=== PATIENT | female | born 1945 | race Caucasian/White ===

== ENCOUNTER → 2017-08-31 10:11 | Outpatient (CLI) | payer MEDICARE, SELFPAY ==
--- NOTE | 2017-08-31 | DI.CT.S_ITS ---
PROCEDURE: CT ABDOMEN PELVIS W CON INDICATIONS: 71 year-old female with abdominal pain for several months. TECHNIQUE: After the administration of oral and intravenous contrast, 5 mm thick sections acquired from the diaphragms to the symphysis. 5 mm thick coronal and sagittal reformats were performed. For radiation dose reduction, the following was used: automated exposure control, adjustment of mA and/or kV according to patient size. COMPARISON: None. FINDINGS: Image quality: Excellent. ABDOMEN: Lung bases: Lung bases are clear. Heart size is normal. Patient is status post fundoplication surgery, with the surgical wrap herniating superior to the diaphragmatic hiatus. Solid organs: Liver is normal in size and enhancement. Gallbladder is surgically absent, with result in localized prominence of the intra-and extrahepatic biliary ducts. Pancreas enhances normally. Spleen is normal in size and enhancement. No adrenal nodules. Kidneys are normal in size and enhancement, without hydronephrosis. 1.9 cm right renal parapelvic simple cyst is incidentally noted. Peritoneum and bowel: Stomach, small bowel, and colon loops are normal in caliber and wall thickness. There is pancolonic diverticulosis. The appendix is unable to be visualized. No free fluid or air. Nodes and vessels: No retroperitoneal or mesenteric adenopathy. Aorta and inferior vena cava are normal in caliber, with moderate aortoiliac atherosclerosis. Miscellaneous: No ventral hernias. PELVIS: Genitourinary: Bladder wall thickness is normal. Miscellaneous: No inguinal hernias or adenopathy. Bones: No suspicious bony lesions. No vertebral body compression fractures. IMPRESSION: 1. Coffey colonic diverticulosis, without acute diverticulitis. 2. Moderate aortoiliac atherosclerosis. No hemodynamically significant stenotic calcifications of the celiac or mesenteric arteries. 3. Incidental 1.9 cm right renal parapelvic simple cyst. 4. Status post remote fundoplication surgery for gastroesophageal reflux. The fundoplication wrap is herniated superior to the diaphragmatic hiatus. Dictated by: Cj Andrade M.D. on 08/31/2017 at 12:32 Approved by: Cj Andrade M.D. on 08/31/2017 at 12:40
== END ==
PROVIDERS: PCP Internal Medicine; Visit Provider Internal Medicine
DX: K57.90 Diverticulosis of intestine, part unspecified, without perforation or abscess without bleeding (principal); I70.0 Atherosclerosis of aorta; N28.1 Cyst of kidney, acquired
CPT/HCPCS: 74177; Q9967

== ENCOUNTER → 2018-04-16 11:08 | Outpatient (CLI) | payer MEDICARE, SELFPAY ==
--- NOTE | 2018-04-16 | DI.MG.S_ITS ---
BILATERAL DIGITAL SCREENING MAMMOGRAM 3D/2D WITH CAD: 04/16/2018 CLINICAL: Routine screening. Family history of breast cancer. Comparison is made to exams dated: 03/23/2017 mammogram, 03/14/2016 mammogram, and 03/11/2015 mammogram - [facility]. The tissue of both breasts is predominantly fatty. Current study was also evaluated with a Computer Aided Detection (CAD) system. There are benign calcifications in both breasts. No significant masses, calcifications, or other findings are seen in either breast. There has been no significant interval change. IMPRESSION: There is no mammographic evidence of malignancy. A 1 year screening mammogram is recommended. This exam was interpreted at Station ID: [id number]. NOTE: For mammograms, a report in lay terms will be sent to the patient. Approximately 15% of breast malignancies will not be visualized mammographically. In the management of a palpable breast mass, a negative mammogram must not discourage biopsy of a clinically suspicious lesion. Electronically Signed By: Myrna becker/valentin:04/16/2018 11:56:03 letter sent: Normal Exam ACR BI-RADS Category 2: Benign Finding(s) 3342F
== END ==
PROVIDERS: PCP Internal Medicine; Visit Provider Internal Medicine
DX: Z12.31 Encounter for screening mammogram for malignant neoplasm of breast (principal); Z80.3 Family history of malignant neoplasm of breast
CPT/HCPCS: 77063; 77067

== ENCOUNTER → 2018-08-09 07:47 | Outpatient (CLI) | payer MEDICARE, SELFPAY ==
[2018-08-09 09:15] LABS: Alanine Aminotransferase 27 IU/L (9-52); Aspartate Aminotransferase 33 IU/L (14-36); BUN Creatinine Ratio 15.6 (6-22); Blood Urea Nitrogen 14 mg/dL (7-17); Calcium 10.4 mg/dL (8.4-10.2); Carbon Dioxide 22 mmol/L (22-32); Chloride 103 mmol/L (98-107); Cholesterol 193 mg/dL (140-199); Estimated Glomerular Filt Rate > 60.0 mL/min (>60); Glucose 93 mg/dL (80-110); HEMOLYSIS < 15 (0-50); Potassium 4.8 mmol/L (3.4-5.1); Sodium 139 mmol/L (137-145); Triglycerides 163 mg/dL (35-150)
[2018-08-09 09:17] LABS: Hemoglobin A1C% w Est Avg Glu 5.1 % (4.0-6.0)
[2018-08-09 09:26] LABS: HDL Cholesterol 110 mg/dL (40-60); LDL Cholesterol Calculated 50 mg/dL (<100)
[2018-08-13 16:09] LABS: Parathyroid Hormone Int 12 pg/mL (14-64)
== END ==
PROVIDERS: PCP Internal Medicine; Visit Provider Internal Medicine
DX: I10 Essential (primary) hypertension (principal); E78.2 Mixed hyperlipidemia; E11.9 Type 2 diabetes mellitus without complications; E83.52 Hypercalcemia
CPT/HCPCS: 36415; 80048; 80061; 83036; 83970; 84450; 84460

== ENCOUNTER → 2018-08-20 09:01 | Outpatient (CLI) | payer MEDICARE, SELFPAY ==
--- NOTE | 2018-08-20 | DI.US.S_ITS ---
PROCEDURE: US ABD AORTA ANEURYSM SCREEN INDICATIONS: Encounter for screening for cardiovascular disorders TECHNIQUE: Real time scanning was performed of the aorta and iliac arteries, with image documentation. COMPARISON: [facility], CT, CT ABDOMEN PELVIS W CON, 08/31/2017, 10:59. FINDINGS: Aorta: Imaged proximal abdominal aorta measures 2.2 x 2.1 cm in transaxial diameter. Imaged mid abdominal aorta measures 1.8 x 1.5 cm in transaxial diameter. Imaged distal abdominal aorta measures 1.9 x 1.5 cm in transaxial diameter. There is diffuse calcified plaque along the abdominal aorta. Iliac arteries: Imaged proximal right common iliac artery measures 1.2 x 1.0 cm in transaxial diameter. Imaged proximal left common iliac artery measures 1.0 x 0.8 cm in transaxial diameter. There is calcified plaque along the image common iliac arteries. IMPRESSION: 1. No ultrasound evidence of abdominal aortic aneurysm. No ultrasound evidence of aneurysm of the imaged proximal common iliac arteries. 2. Diffuse calcified plaque of the abdominal aorta and imaged proximal common iliac arteries. Dictated by: Kehinde Page M.D. on 08/20/2018 at 9:31 Approved by: Kehinde Page M.D. on 08/20/2018 at 9:45
== END ==
PROVIDERS: PCP Internal Medicine; Visit Provider Internal Medicine
DX: Z13.6 Encounter for screening for cardiovascular disorders (principal); I70.0 Atherosclerosis of aorta; Z13.820 Encounter for screening for osteoporosis; M85.852 Other specified disorders of bone density and structure, left thigh; Z78.0 Asymptomatic menopausal state; E11.9 Type 2 diabetes mellitus without complications; Z87.891 Personal history of nicotine dependence
CPT/HCPCS: 76706; 77080

== ENCOUNTER → 2018-12-20 14:19 | Outpatient (CLI) | payer MEDICARE, SELFPAY ==
--- NOTE | 2018-12-20 | DI.RAD.S_ITS ---
PROCEDURE: XR CHEST 2V INDICATIONS: COUGH TECHNIQUE: 2 views of the chest were acquired. COMPARISON: None. FINDINGS: Surgical changes and devices: Right upper quadrant surgical clips Lungs and pleura: Lungs are clear. No pleural effusions or pneumothorax. Mediastinum: Mediastinal contours are normal. Heart size is normal. Bones and chest wall: No suspicious bony abnormalities. Soft tissues appear unremarkable. IMPRESSION: No acute disease. Dictated by: Elmer Navarro M.D. on 12/20/2018 at 15:10 Approved by: Elmer Navarro M.D. on 12/20/2018 at 15:10
== END ==
PROVIDERS: PCP Internal Medicine; Visit Provider Internal Medicine
DX: R05 Cough (principal)
CPT/HCPCS: 71046

== ENCOUNTER → 2019-04-19 12:18 | Outpatient (CLI) | payer MEDICARE, SELFPAY ==
--- NOTE | 2019-04-19 | DI.MG.S_ITS ---
BILATERAL DIGITAL SCREENING MAMMOGRAM 3D/2D WITH CAD: 04/19/2019 CLINICAL: Routine screening. Family history of breast cancer. Comparison is made to exams dated: 04/16/2018 mammogram, 03/23/2017 mammogram, and 03/14/2016 mammogram - [facility]. There are scattered fibroglandular elements in both breasts. Current study was also evaluated with a Computer Aided Detection (CAD) system. There are benign calcifications in both breasts. No significant masses, calcifications, or other findings are seen in either breast. There has been no significant interval change. IMPRESSION: There is no mammographic evidence of malignancy. A 1 year screening mammogram is recommended. This exam was interpreted at Station ID: [id number]. NOTE: For mammograms, a report in lay terms will be sent to the patient. Approximately 15% of breast malignancies will not be visualized mammographically. In the management of a palpable breast mass, a negative mammogram must not discourage biopsy of a clinically suspicious lesion. Electronically Signed By: Tremayne ashley/valentin:04/21/2019 08:46:25 letter sent: Normal Exam ACR BI-RADS Category 2: Benign Finding(s) 3342F
== END ==
PROVIDERS: PCP Internal Medicine; Visit Provider Internal Medicine
DX: Z12.31 Encounter for screening mammogram for malignant neoplasm of breast (principal); Z80.3 Family history of malignant neoplasm of breast
CPT/HCPCS: 77063; 77067

== ENCOUNTER → 2019-04-24 13:43 | Outpatient (CLI) | payer MEDICARE, SELFPAY ==
--- NOTE | 2019-04-24 | DI.RAD.S_ITS ---
PROCEDURE: XR ABDOMEN MIN 2V INDICATIONS: Constipation TECHNIQUE: 2 views of the abdomen were acquired. COMPARISON: None. FINDINGS: Surgical changes and devices: Left epigastric and right quadrant surgical clips. Bowel: No pneumoperitoneum. The bowel gas pattern is normal. Soft tissues: No masses; visualized solid organ contours appear normal in size. No suspicious abdominal calcifications. Bones: No suspicious bony abnormalities. IMPRESSION: Normal bowel gas pattern. Dictated by: Gurdeep Bonilla [facility] Interpreted: Karolyn Hoff MD on 04/24/2019 at 15:16 Approved by: Karolyn Hoff M.D. on 04/24/2019 at 18:28
== END ==
PROVIDERS: PCP Internal Medicine; Visit Provider Physician Assistant
DX: K59.00 Constipation, unspecified (principal)
CPT/HCPCS: 74019

== ENCOUNTER → 2019-12-03 08:07 | Outpatient (CLI) | payer MEDICARE, SELFPAY ==
[2019-12-03 09:26] LABS: Creatinine Urine Random 67.5 mg/dL
[2019-12-03 09:28] LABS: Hemoglobin A1C% w Est Avg Glu 5.2 % (4.0-6.0)
[2019-12-03 09:29] LABS: Microalbumi Creatinin Ratio Ur 47.4 ug/mg CR (<30); Microalbumin Urine Random 3.2 mg/dL (0-1.6)
[2019-12-03 09:47] LABS: Alanine Aminotransferase 16 IU/L (<35); Albumin 4.6 g/dL (3.5-5.0); Alkaline Phosphatase 80 U/L (38-126); Aspartate Aminotransferase 28 IU/L (14-36); Bilirubin Total 0.7 mg/dL (0.2-1.3); Blood Urea Nitrogen 26 mg/dL (7-17); Calcium 11.2 mg/dL (8.4-10.2); Carbon Dioxide 22 mmol/L (22-32); Chloride 104 mmol/L (98-107); Cholesterol 171 mg/dL (140-199); Estimated Glomerular Filt Rate 30.8 mL/min (>60); Globulin 2.3 g/dL (1.7-4.1); Glucose 97 mg/dL (80-110); HEMOLYSIS < 15 (0-50); Potassium 4.7 mmol/L (3.4-5.1); Sodium 136 mmol/L (137-145); Total Protein 6.9 g/dL (6.3-8.2); Triglycerides 147 mg/dL (35-150)
[2019-12-03 09:54] LABS: HDL Cholesterol 109 mg/dL (40-60); LDL Cholesterol Calculated 33 mg/dL (<100)
== END ==
PROVIDERS: PCP Internal Medicine; Referring Provider Internal Medicine; Visit Provider Internal Medicine
DX: I10 Essential (primary) hypertension (principal); E78.2 Mixed hyperlipidemia; E11.9 Type 2 diabetes mellitus without complications
CPT/HCPCS: 36415; 80053; 80061; 82043; 82570; 83036

== ENCOUNTER → 2020-01-14 12:36 | Outpatient (CLI) | payer MEDICARE, SELFPAY ==
[2020-01-15 13:17] LABS: Ionized Calcium 5.4 mg/dL (4.5-5.6)
[2020-01-15 17:08] LABS: Calcium 10.5 mg/dL (8.7-10.3); Parathyroid Hormone, Intact 36 pg/mL (15-65)
== END ==
PROVIDERS: PCP Internal Medicine; Referring Provider Internal Medicine; Visit Provider Internal Medicine
DX: M85.851 Other specified disorders of bone density and structure, right thigh (principal); Z78.0 Asymptomatic menopausal state; E11.9 Type 2 diabetes mellitus without complications; E83.52 Hypercalcemia; Z87.891 Personal history of nicotine dependence
CPT/HCPCS: 36415; 77080; 82310; 82330; 83970

== ENCOUNTER → 2020-01-20 13:40 | Oncology outpatient (ONC) | payer MEDICARE, SELFPAY ==
[2020-01-07 11:05] VITALS: BP 148/74; PULSE 71; RESP 18; TEMP 36.4; O2SAT 98
--- NOTE | 2020-01-07 12:04 | P.CONONC_ITS ---
History of Present Illness - Data of Consult Consult date: 01/07/20 Requesting Physician: Eryn molina MD Primary Care Provider: Eryn Molina MD - Consult Narrative Reason for consult: Hypercalcemia Narrative: Hollie Granger is a 74 year old female referred for further evaluation of hypercalcemia. Review of her old records shows that in March 11, 2003 she had a mildly elevated calcium level of 10.5. In May 2004 it was 9.7, in June 2005 it was 10.1, in June 2006 was 9.6, in September 2008 it was 9.8, and in October of 2015 it was 10.6. Of note is that she had a normal vitamin-D of 56.4 in 2009, 52 in September of 2015. It had previously been low. In September of 2015 she also had normal free light chain assay, serum protein electrophoresis and serum immunofixation. Intact PTH assay was normal at that time at 34.9 (upper limit of normal 53.5). PTH intact was also obtained in July of 2018 and was low at 12. In April 2016 her calcium was 11.1. Since then her levels have been fluctuating around the upper end of normal. On December 03, 2019 her calcium was 11.2. She is now referred for hematology oncology consultation. She denies taking any calcium supplements, antacids, or excessive dairy intake. She took vitamin-D in the past but has stopped this. She does not take any supplements. She does not tolerate cold weather well. She notes some easy bruising on her arms over the last few months. She does not have any bruising anywhere else. She denies any issues with lumps or bumps, skin rash, mouth sores, pain, bleeding, localized weakness, fever, chills, nausea, vomiting, mouth sores, trouble swallowing, anorexia, cough, shortness of breath, itching, night sweats, dizziness, or fatigue. She goes on regular walks. She has a 3-month-old cord the puppy and is out regularly with him. She does not have any trouble getting around. Her last year in she had an unintentional 15-20 lb weight loss initially. Her appetite was good. This is since leveled off. All other systems are negative. Past medical history 1. Adult onset diabetes 2. High blood pressure 3. Hyperlipidemia 4. History of osteopenia. She has not had a DEXA scan within the last 2 years to her recollection. 5. Gastroesophageal reflux disease 6. Hiatal hernia 7. History of mild psoriasis for which he is followed by Dermatology 8. Unremarkable imaging in 2019 and included a chest x-ray in November of 2018, mammography in March 2019, and abdominal x-ray in March of 2019. 9. She denies rheumatic fever, tuberculosis, heart attacks, strokes, stomach ulcers, pneumonia or any kind of cancer 10. This is a family history of breast cancer in her mother who was diagnosed in her 70s and a maternal cousin who was diagnosed with breast cancer in her 60s. She is unaware of any other family history of malignancy, a family history of blood disorders, or family history of an elevated calcium. 11. Previous surgeries included tonsillectomy, partial thyroidectomy, hysterectomy, back surgery, rotator saw cuff surgery, colonoscopy in 2018, and a Cat fundoplasty. 12. 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 She is a . She is accompanied in the office today by her daughter. She is a former 15 pack year smoker who quit about 30 years ago. She has a glass of wine with dinner. She is active in gets out of the house on a regular basis. She tries to eat a healthy diet. 13. She does not tolerate amoxicillin, esomeprazole hydrochlorothiazide 14. Current medications include atorvastatin 20 mg daily, benazepril 20 mg twice a day, Lasix 20 mg daily, metformin 500 mg twice a day and metoprolol 25 mg daily. CC: Aron Delcid MD Home Medications and Allergies Home Medications Medication Instructions Recorded Confirmed Type atorvastatin 20 mg PO DAILY 01/07/20 01/07/20 History benazepril 20 mg BID 01/07/20 01/07/20 History furosemide 20 mg PO DAILY 01/07/20 01/07/20 History metformin 500 mg BID 01/07/20 01/07/20 History metoprolol succinate 25 mg PO DAILY 01/07/20 01/07/20 History Allergies Allergy/AdvReac Type Severity Reaction Status Date / Time Amoxicillin Allergy Unknown Uncoded 08/08/17 11:50 Esomeprazole Allergy Unknown Uncoded 08/08/17 11:50 Hydrochlorothiazide Allergy Unknown Uncoded 08/08/17 11:50 Exam Vital signs: Vital Signs Temp Pulse Resp BP Pulse Ox 01/07/20 11:05 97.6 F 71 18 148/74 H 98 Intake and Output 01/06/20 01/07/20 01/07/20 23:59 07:59 15:59 Other: Weight 54 kg Patient Weight 01/07/20 23:59 Weight 54 kg Narrative: She was awake, alert and oriented x3. She was in no acute distress. There was no palpable lymph node enlargement in the cervical, supraclavicular, epitrochlear, axillary, inguinal or femoral regions. Lungs were clear without wheezes or rales. Breath sounds were equal throughout both lung crowell and there was no evidence of pleural effusion on exam. Heart showed a regular rate and rhythm without murmur, gallop or rub. The PMI was normally placed. There was no jugular venous distention. Abdomen was soft and nontender without organomegaly or masses. There were no hernias. The spleen was not palpable in the right lateral decubitus position. Bowel tones were normal. There was no evidence of phlebitis in the lower extremities. There were no suspicious skin lesions and no inflamed joints. Assessment and Plan (1) Hypercalcemia Status: Acute Ms. Granger has a history of mild hypercalcemia that dates back a number of years. It does not have a pattern of steady progression and has remained in a mild range. She does not have any clinical findings that would suggest an underlying malignancy and she is up-to-date with her age-appropriate cancer screening. We discussed the fact that although hypercalcemia can be seen as a paraneoplastic phenomenon, when it occurs in the setting of malignancy, it typically is associated with a very poor prognosis, aggressive cancer that is usually rapidly progressive, and without treatment of the underlying malignancy will typically worsen over time (usually months) often getting to very high levels. She has no findings that would suggest an underlying cancer and I do not think she has hypercalcemia of malignancy. Previous workup looking for a monoclonal paraprotein, vitamin-D intoxication, and elevated intact PTH levels further plans will be made at that time. Has been unrevealing. She is not on any obvious supplements or medications that he could be contributing to this. She does not have any symptoms to suggest sarcoidosis and a chest x-ray a year ago was negative. She also does not have a family history to suggest hereditary process. Thyroid function tests have been normal in the past and she does not have findings that would suggest adrenal insufficiency. Today we will get an ionized calcium level. I explained that calcium circulate in both free and bound forms and the ionized calcium would be an important test to clarify whether she has true hypercalcemia. We also discussed the fact that sustained hypercalcemia, even if mild, can be associated with a loss of bone density. We will check a bone density test, as well. She will return after these studies have been completed. Further plans will be made at that time. Impression: 1. Mild and fluctuating hypercalcemia dating back to 2002, consistently present since 2016 2. Previous workup with monoclonal paraprotein studies, intact PTH assay, thyroid function tests was negative 3. No evidence of malignancy on her clinical assessment today and no findings to suggest hypercalcemia of malignancy 4. Patient is up-to-date with her age-appropriate cancer screening Recommendations: 1. Ionized calcium 2. Bone density test 3. Return afterwards for review of results I personally spent 46 minutes in today's [id number] visit with greater than 50% of the time spent in counseling regarding the issues outlined above. I would like to thank Dr. Eryn Molina for referring this very pleasant interesting patient
[2020-01-20 13:34] VITALS: BP 137/74; PULSE 73; RESP 18; TEMP 36.5; O2SAT 98
--- NOTE | 2020-01-20 13:57 | ONC.PN ---
PN -Subjective Interval history: Hollie Granger is a 74 year old female referred for further evaluation of hypercalcemia. Review of her old records shows that in March 11, 2003 she had a mildly elevated calcium level of 10.5. In May 2004 it was 9.7, in June 2005 it was 10.1, in June 2006 was 9.6, in September 2008 it was 9.8, and in October of 2015 it was 10.6. Of note is that she had a normal vitamin-D of 56.4 in 2009, 52 in September of 2015. It had previously been low. In September of 2015 she also had normal free light chain assay, serum protein electrophoresis and serum immunofixation. Intact PTH assay was normal at that time at 34.9 (upper limit of normal 53.5). PTH intact was also obtained in July of 2018 and was low at 12. In April 2016 her calcium was 11.1. Since then her levels have been fluctuating around the upper end of normal. On December 03, 2019 her calcium was 11.2. She was referred for hematology oncology consultation, had testing done, and now comes in to review results. She denies taking any calcium supplements, antacids, or excessive dairy intake. She took vitamin-D in the past but has stopped this. She does not take any supplements. She does not tolerate cold weather well. She notes some easy bruising on her arms over the last few months. She does not have any bruising anywhere else. She denies any issues with lumps or bumps, skin rash, mouth sores, pain, bleeding, localized weakness, fever, chills, nausea, vomiting, mouth sores, trouble swallowing, anorexia, cough, shortness of breath, itching, night sweats, dizziness, or fatigue. She goes on regular walks. She has a 3-month-old cord the puppy and is out regularly with him. She does not have any trouble getting around. Her last year in she had an unintentional 15-20 lb weight loss initially. Her appetite was good. This is since leveled off. All other systems are negative. Past medical history 1. Adult onset diabetes 2. High blood pressure 3. Hyperlipidemia 4. History of osteopenia. She has not had a DEXA scan within the last 2 years to her recollection. 5. Gastroesophageal reflux disease 6. Hiatal hernia 7. History of mild psoriasis for which he is followed by Dermatology 8. Unremarkable imaging in 2019 and included a chest x-ray in November of 2018, mammography in March 2019, and abdominal x-ray in March of 2019. 9. She denies rheumatic fever, tuberculosis, heart attacks, strokes, stomach ulcers, pneumonia or any kind of cancer 10. This is a family history of breast cancer in her mother who was diagnosed in her 70s and a maternal cousin who was diagnosed with breast cancer in her 60s. She is unaware of any other family history of malignancy, a family history of blood disorders, or family history of an elevated calcium. 11. Previous surgeries included tonsillectomy, partial thyroidectomy, hysterectomy, back surgery, rotator saw cuff surgery, colonoscopy in 2018, and a Cat fundoplasty. 12. 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 She is a . She is accompanied in the office today by her daughter. She is a former 15 pack year smoker who quit about 30 years ago. She has a glass of wine with dinner. She is active in gets out of the house on a regular basis. She tries to eat a healthy diet. 13. She does not tolerate amoxicillin, esomeprazole hydrochlorothiazide 14. Current medications include atorvastatin 20 mg daily, benazepril 20 mg twice a day, Lasix 20 mg daily, metformin 500 mg twice a day and metoprolol 25 mg daily. CC: Aron Delcid MD Home Medications and Allergies Home Medications Medication Instructions Recorded Confirmed Type atorvastatin 20 mg PO DAILY 01/07/20 01/07/20 History benazepril 20 mg BID 01/07/20 01/07/20 History furosemide 20 mg PO DAILY 01/07/20 01/07/20 History metformin 500 mg BID 01/07/20 01/07/20 History metoprolol succinate 25 mg PO DAILY 01/07/20 01/07/20 History Allergies Allergy/AdvReac Type Severity Reaction Status Date / Time Amoxicillin Allergy Unknown Uncoded 08/08/17 11:50 Esomeprazole Allergy Unknown Uncoded 08/08/17 11:50 Hydrochlorothiazide Allergy Unknown Uncoded 08/08/17 11:50 Exam Vital signs: Vital Signs Temp Pulse Resp BP Pulse Ox 01/20/20 13:34 97.7 F 73 18 137/74 98 Intake and Output 01/19/20 01/20/20 01/20/20 23:59 07:59 15:59 Other: Weight 54.4 kg Patient Weight 01/20/20 23:59 Weight 54.4 kg Narrative: She was awake, alert and oriented x3. She was in no acute distress. Assessment and Plan (1) Hypercalcemia Status: Acute Ms. Granger has a history of mild hypercalcemia that dates back a number of years. It does not have a pattern of steady progression and has remained in a mild range. She does not have any clinical findings that would suggest an underlying malignancy and she is up-to-date with her age-appropriate cancer screening. We discussed the fact that although hypercalcemia can be seen as a paraneoplastic phenomenon, when it occurs in the setting of malignancy, it typically is associated with a very poor prognosis, aggressive cancer that is usually rapidly progressive, and without treatment of the underlying malignancy will typically worsen over time (usually months) often getting to very high levels. She has no findings that would suggest an underlying cancer and I do not think she has hypercalcemia of malignancy. Previous workup looking for a monoclonal paraprotein, vitamin-D intoxication, and elevated intact PTH levels has been unrevealing. She is not on any obvious supplements or medications that he could be contributing to this. She does not have any symptoms to suggest sarcoidosis and a chest x-ray a year ago was negative. She also does not have a family history to suggest hereditary process. Thyroid function tests have been normal in the past and she does not have findings that would suggest adrenal insufficiency. Ionized calcium obtained at the time of her last visit came back normal. I discussed Ms. Blanco case with her primary physician, Dr. Eryn Molina. Ms. Molina's picture is consistent with mild hypercalcemia related to her albumin which has been consistently at the upper end of normal or just above the upper end of normal. Her ionized calcium is normal and extensive assessment for potential conditions that could result in a chew hypercalcemia has been unrevealing. We reviewed the fact that the ionized calcium being normal is extremely reassuring and suggest that she does not have physiologic hypercalcemia. I would suggest that she get an annual calcium level checked. If it remains in the mildly elevated or upper limit of normal range where it has been for years, no further workup would be indicated. If she were to develop a significant increase in her calcium, such as a level that is consistently above 12, repeat assessment for potential new causes of hypercalcemia would be appropriate. Although no specific return appointment has been scheduled to this office, I would be happy to see her again at any time in the future. Impression: 1. Mild and fluctuating hypercalcemia dating back to 2002, consistently present since 2016 2. Previous workup with monoclonal paraprotein studies, intact PTH assay, thyroid function tests was negative 3. No evidence of malignancy on her clinical assessment today and no findings to suggest hypercalcemia of malignancy 4. Patient is up-to-date with her age-appropriate cancer screening 5. Ionized calcium is normal, consistent with mild hypercalcemia due to her albumin being at the upper end of normal or slightly above normal. Recommendations: 1. Check calcium annually 2. Consider repeat assessment if it should persistently go above 12 3. She will follow-up with Dr. Eryn Mloina 4. Case was discussed with Dr. Eryn Molina 5. No specific return appointment has been scheduled to this office but I would be happy to see her again at any time in the future. I personally spent 46 minutes in today's [id number] visit with greater than 50% of the time spent in counseling regarding the issues outlined above. I would like to thank Dr. Eryn Molina for referring this very pleasant interesting patient
== END ==
PROVIDERS: PCP Internal Medicine; Referring Provider Internal Medicine; Visit Provider Internal Medicine
DX: E83.52 Hypercalcemia (principal); E11.9 Type 2 diabetes mellitus without complications; I10 Essential (primary) hypertension; E78.5 Hyperlipidemia, unspecified; K21.9 Gastro-esophageal reflux disease without esophagitis; Z80.3 Family history of malignant neoplasm of breast; Z87.891 Personal history of nicotine dependence; Z79.84 Long term (current) use of oral hypoglycemic drugs
CPT/HCPCS: 99204; 99214

== ENCOUNTER 2020-04-17 02:41 | Inpatient (IN) | payer MEDICARE, SELFPAY ==
[2020-04-17] VITALS (17 sets, daily range): BP systolic 105–179; BP diastolic 49–121; PULSE 80–185; RESP 15–50; TEMP 36.7–37.4; O2SAT 94–100; BMI 24.2
--- NOTE | 2020-04-17 02:44 | DI.RAD.S_ITS ---
PROCEDURE: XR HIP W PEL IF DONE RT 2V COMPARISON: None. INDICATIONS: fall with hip pain and injury FINDINGS: There is an oblique fracture through the intertrochanteric region of the right which is distracted approximately 10 millimeters. The hip joints themselves are intact. The sacroiliac joints and symphysis pubis are unremarkable. No definite pelvic fracture. IMPRESSION: Minimally displaced right intertrochanteric hip fracture. Comment: Final report is concordant with preliminary interpretation by [facility] Dictated by: Renan Prescott M.D. on 04/17/2020 at 8:14 Approved by: Renan Prescott M.D. on 04/17/2020 at 8:15
--- NOTE | 2020-04-17 02:44 | DI.CT.S_ITS ---
PROCEDURE: CT CHEST ABD PEL W CON COMPARISON: None. INDICATIONS: found down, presumed trauma, obvious right hip injury FINDINGS: FINDINGS: Image quality: Excellent. CHEST: Lungs and pleura: No acute air space opacities. No pleural effusions or pneumothorax. Central and peripheral airways are patent and normal in caliber. Mediastinum: Heart size is normal. No pericardial effusion. No mediastinal adenopathy by size criteria. Thoracic aorta and central pulmonary arteries are normal in size. Esophagus is normal in caliber. No hiatal hernia. Bones and chest wall: No suspicious bony lesions. No vertebral body compression fractures. No axillary or supraclavicular adenopathy by size criteria. Thyroid gland is normal . ABDOMEN: Solid organs: Liver: The liver has no mass. There is central biliary prominence with the common bile duct measuring 19 millimeters likely related to prior cholecystectomy. The portal vein and hepatic veins are patent. Biliary: Status post cholecystectomy. Pancreas: The pancreas has no mass or ductal dilatation. There is no surrounding inflammation. Spleen: Normal size. There are no masses. Adrenals: No hypertrophy or nodules. Kidneys: No obstructive calculus or hydronephrosis. No solid mass. No cystic mass. Bowel: There is a small hiatal hernia. The distal esophagus and stomach are otherwise normal. The small bowel has a normal caliber and appearance. The terminal ileum is normal. The large bowel has diverticulosis with no evidence of diverticulitis. The appendix is not definitively visualized; however there are no secondary CT findings to suggest acute appendicitis.. No free fluid or air. Nodes and vessels: No retroperitoneal or mesenteric adenopathy by size criteria. The aorta has atherosclerosis with no aneurysmal dilatation. Abdominal wall: No abdominal wall mass or hernia. PELVIS: Genitourinary: The bladder has no wall thickening or mass. No bladder calcifications. Miscellaneous: No inguinal hernias or adenopathy. Bones and abdominal wall: There is a comminuted intertrochanteric fracture on the right. There is stranding of the soft tissue superficial to the fracture site. The iliacus muscle is also thickened and ill-defined suggesting possible intramuscular injury/hematoma. Similar findings are noted in the medius and minimus muscles on the right. A few benign-appearing calcifications are noted in the mesentery to the right of midline. No vertebral body compression fractures. IMPRESSION: Comminuted intertrochanteric fracture on the right with adjacent soft tissue swelling and evidence of muscular injury/hematoma involving the iliacus muscle and gluteus muscle as well as proximal thigh muscles. Comment: Final report is concordant with preliminary interpretation by [facility] Dictated by: Renan Prescott M.D. on 04/17/2020 at 8:19 Approved by: Renan Prescott M.D. on 04/17/2020 at 8:25
--- NOTE | 2020-04-17 02:45 | DI.CT.S_ITS ---
PROCEDURE: CT CERVICAL SPINE WO CON INDICATIONS: trauma, found down, unknown circumstances TECHNIQUE: Noncontrast 3 mm thick sections acquired from the skull base to the T4 level. Sagittal and coronal reformats were then constructed. For radiation dose reduction, the following was used: automated exposure control, adjustment of mA and/or kV according to patient size. COMPARISON: None. FINDINGS: Alignment is maintained. There is no evidence of traumatic fracture or spondylolisthesis. Lateral masses are intact. Dens appears normal. There are multilevel degenerative changes with disc disease and disc osteophytes. There is degenerative disc disease at C4-5 and C5-6. The visualized soft tissues demonstrate no soft tissue hematoma, pathologic adenopathy or mass lesion. The lung apices demonstrate no focal contusion or pneumothorax. Limited evaluation of the brain parenchyma is normal. IMPRESSION: 1. No acute bony abnormality. 2. Mild degenerative changes of C4-5 and C5-6. Dictated by: Renan Prescott M.D. on 04/17/2020 at 8:16 Approved by: Renan Prescott M.D. on 04/17/2020 at 8:19
--- NOTE | 2020-04-17 02:45 | DI.CT.S_ITS ---
PROCEDURE: CT HEAD/BRAIN WO CON COMPARISON: None. INDICATIONS: trauma, found down, unknown circumstances FINDINGS: Image quality: Excellent. CSF spaces: Basal cisterns are patent. No extra-axial fluid collections. Ventricles are normal in size and shape. Brain: No midline shift. No intracranial masses or hemorrhage. Brewer-white matter interface is normal. Skull and face: Calvarium and visualized facial bones are intact, without suspicious lesions. The orbits and retrobulbar are soft tissues are normal. The soft tissues are normal. Sinuses: Visualized sinuses and mastoids are clear. IMPRESSION: No acute intracranial abnormality Comment: Final report is concordant with preliminary interpretation by [facility] Dictated by: Renan Prescott M.D. on 04/17/2020 at 8:15 Approved by: Renan Prescott M.D. on 04/17/2020 at 8:16
--- NOTE | 2020-04-17 02:53 | ED_ITS ---
HPI - Extremity Injury (Lower) General Chief Complaint: Extremity Injury, Lower Stated Complaint: GLF, right hip pain Time Seen by Provider: 04/17/20 02:43 Source: patient and EMS Mode of arrival: EMS Limitations: no limitations History of Present Illness HPI Narrative: 74F nonsmoker presents with the chief complaint of severe R hip pain since a fall Thrusday night. She has been crawling on the ground at home alone ever since. She made it to the phone to contact EMS. She doesn't know exactly how she fell, but has largely been on the ground since. She doesn't have any head, neck, or back pain. She's had no CP, SOB, N/V/D or abdominal pain. She feels weak, and worn out. She is awake, alert, and oriented. EMS gave her Fentanyl and some Ketamine en route. She has significant pain in her hip with movement, which improves with rest. She denies numbness, tingling, or weakness. Related Data Home Medications Medication Instructions Recorded Confirmed atorvastatin 20 mg PO DAILY 01/07/20 04/17/20 benazepril 20 mg BID 01/07/20 04/17/20 furosemide 20 mg PO DAILY 01/07/20 04/17/20 metformin 500 mg BID 01/07/20 04/17/20 metoprolol succinate 25 mg PO DAILY 01/07/20 04/17/20 Allergies Allergy/AdvReac Type Severity Reaction Status Date / Time amoxicillin Allergy Unknown Verified 04/17/20 08:44 esomeprazole Allergy Unknown Verified 04/17/20 08:44 hydrochlorothiazide Allergy Unknown Verified 04/17/20 08:44 Review of Systems Constitutional Constitutional: Denies chills, Reports fatigue, Denies fever(s), Denies frequent falls, Denies lethargy and Reports weakness Eyes Eyes: Denies change in vision, Denies eye discharge, Denies irritation and Denies loss of vision ENT Ears, Nose, Mouth, and Throat: Denies change in voice, Denies dizziness, Denies neck pain, Denies sore throat and Denies throat swelling Cardiovascular Cardiovascular: Denies chest pain, Denies irregular heart rhythm, Denies lightheadedness, Denies palpitations, Denies dyspnea, Denies dyspnea on exertion and Denies orthopnea Respiratory Respiratory: Denies cough, Denies dyspnea, Denies dyspnea on exertion and Denies wheezing Gastrointestinal Gastrointestinal: Denies abdominal pain, Denies change in bowel habits, Denies diarrhea, Denies nausea and Denies vomiting Musculoskeletal Musculoskeletal: Reports deformity, Reports arthralgias, Reports joint swelling, Reports limited range of motion, Denies neck pain and Denies numbness Integumentary/Breasts Skin/Breast: Denies pruritus, Denies erythema, Denies rash and Denies wounds Neurologic Neurologic: Denies behavioral changes, Denies confusion, Denies dizziness, Denies frequent falls, Denies loss of vision, Denies numbness and Reports wea kness Psychiatric Psychiatric: Denies anxiety, Denies behavioral changes, Denies confusion, Denies depression, Denies homicidal ideation and Denies suicidal ideation Endocrine Endocrine: Reports fatigue, Denies flushing and Denies palpitations Hematologic/Lymphatic Hematologic/Lymphatic: Reports easy bruising Allergic/Immunologic Allergic/Immunologic: Denies urticaria, Denies throat swelling and Denies wheezing Patient History Medical History Benign essential HTN GERD (gastroesophageal reflux disease) Hiatal hernia Hyperlipidemia associated with type 2 diabetes mellitus Osteopenia Psoriasis Family History (Updated 04/17/20 @ 06:00 by Kathleen Bustamante [facility]) Mother Breast cancer Family/Other Breast cancer Social History household members: none Smoking Status: Never smoker Smoking Status: Never smoker alcohol intake frequency: a few times a month Alcohol type: wine Substance Use Type: does not use Exam Narrative Exam Narrative: GENERAL: [74] year old patient appears stated age. Well- nourished, well-developed patient, in obvious distress. GCS 15 HEAD: Atraumatic. Normocephalic. EYES: Pupils equal round and reactive. Extraocular motions intact. No scleral icterus. No injection or drainage. ENT: Dry mucous membranes. Nose without bleeding, purulent drainage. Throat without erythema, tonsillar hypertrophy or exudate. Airway patent. NECK: Trachea midline. Non tender CARDIOVASCULAR: Regular rate and rhythm without murmurs, gallops, or rubs. RESPIRATORY: Clear to auscultation. Breath sounds equal bilaterally. No wheezes, rales, or rhonchi. GASTROINTESTINAL: Abdomen soft, non-tender, nondistended. EXTREMITIES: Pain, ecchymosis R hip, shortening and external rotation. Closed, isolated, and NV intact. BACK: Nontender without deformity or crepitance. No flank tenderness. NEURO: AOx3. SKIN: Abnormal bruising on R hip and both elbows. Otherwise, no rash or erythema of visible areas Initial Vital Signs Initial Vital Signs: Vital Signs Temperature 99.1 F 04/17/20 02:48 Pulse Rate 90 04/17/20 02:48 Respiratory Rate 20 04/17/20 02:48 Blood Pressure 172/90 H 04/17/20 02:48 Pulse Oximetry 98 04/17/20 02:48 Course Orders Ordered: Acetaminophen (Acetaminophen 325 Mg Tablet) 650 mg PO Q6HR PRN PRN Reason: Fever/Mild Pain (1-3) Hydrocodone Bitart/Acetaminophen (Hydrocodone/Acet 5/325 Tablet) 2 tab PO Q4HR PRN PRN Reason: Pain, Severe (7-10) Last Admin: 04/17/20 21:22 Dose: 2 tab Documented by: Admin: 04/17/20 16:48 Dose: 2 tab Documented by: Admin: 04/17/20 11:14 Dose: 2 tab Documented by: Admin: 04/17/20 05:33 Dose: 2 tab Documented by: TATY Atorvastatin Calcium (Atorvastatin 20 Mg Tablet) 20 mg PO BEDTIME [facility] Last Admin: 04/17/20 20:38 Dose: 20 mg Documented by: NINFA Benazepril HCl (Benazepril 20 Mg Tablet) 20 mg PO BID [facility] Last Admin: 04/17/20 20:34 Dose: Not Given Documented by: Admin: 04/17/20 09:03 Dose: Not Given Documented by: CHELSEY Dextrose (Dextrose 50 % In Water 25 Gm/50 Ml Syringe) 25 gm IV PRN PRN PRN Reason: Hypoglycemia Docusate Sodium (Docusate 100 Mg Capsule) 100 mg PO BID [facility] Last Admin: 04/17/20 20:38 Dose: 100 mg Documented by: Admin: 04/17/20 09:11 Dose: 100 mg Documented by: CHELSEY Enoxaparin Sodium (Enoxaparin 30 Mg/0.3 Ml Syringe) 30 mg SUBCUT DAILY [facility] Last Admin: 04/17/20 09:03 Dose: Not Given Documented by: CHELSEY Sodium Chloride (Normal Saline 0.9%) 1,000 mls @ 150 mls/hr IV CONT [facility] Last Admin: 04/17/20 19:01 Dose: 150 mls/hr Documented by: Infusion: 04/17/20 19:01 Dose: 100 mls/hr Documented by: Admin: 04/17/20 09:11 Dose: 100 mls/hr Documented by: Admin: 04/17/20 05:38 Dose: Not Given Documented by: TATY Metoprolol Succinate (Metoprolol Er 25 Mg Tablet) 25 mg PO DAILY [facility] Last Admin: 04/17/20 09:11 Dose: 25 mg Documented by: CHELSEY Naloxone HCl (Naloxone 0.4 Mg/Ml Vial) 0.2 mg IV Q2MIN PRN PRN Reason: Opiate Reversal Ondansetron HCl (Ondansetron 4 Mg Odt) 4 mg PO Q8HR PRN PRN Reason: Nausea And Vomiting Sennosides (Sennosides 8.6 Mg Tablet) 17.2 mg PO BEDTIME [facility] Last Admin: 04/17/20 20:39 Dose: 17.2 mg Documented by: NINFA Discontinued Medications Furosemide (Furosemide 20 Mg Tablet) 20 mg PO DAILY [facility] Last Admin: 04/17/20 09:03 Dose: Not Given Documented by: CHELSEY Hydromorphone HCl (Hydromorphone 0.5 Mg Inj) 0.5 mg IV NOW ONE Stop: 04/17/20 03:45 Last Admin: 04/17/20 03:59 Dose: 0.5 mg Documented by: RADHA Sodium Chloride (Normal Saline 0.9%) 1,000 mls @ 1,000 mls/hr IV BOLUS ONE Stop: 04/17/20 04:45 Last Infusion: 04/17/20 06:13 Dose: 0 mls/hr Documented by: Admin: 04/17/20 03:59 Dose: 1,000 mls/hr Documented by: RADHA Insulin Glargine (Insulin Glargine 100 Unit/Ml 3ml Pen) 1 unit SUBCUT 2100 [facility] Ketorolac Tromethamine (Ketorolac 10 Mg Tablet) 10 mg PO Q6HR PRN PRN Reason: Pain, Moderate (4-6) Stop: 04/22/20 05:11 Consultations Consultation #1: initial call to ortho (Inder) upon completion of portable hip/pelvis. Recommends to admit to medicine. Consultation #2: call to hospitalist. Vital Signs Vital signs: Vital Signs - 8 hr 04/17/20 02:48 Temperature 99.1 F Pulse Rate 90 Respiratory Rate 20 Blood Pressure 172/90 H Pulse Oximetry 98 MDM - Extremity Injury (Lower) Lab Data Result diagrams: 04/17/20 12:50 04/17/20 12:30 Labs: Lab Results 04/17/20 04/17/20 04/17/20 Range/Units 02:55 03:15 03:15 WBC 10.4 (4.5-11.0) X10^3/uL RBC 2.94 L (4.0-5.2) X10^6/uL Hgb 9.7 L (12.0-16.0) g/dL Hct 29.1 L (36-46) % MCV 99.0 (80-100) fL MCH 33.0 (26-34) PG MCHC 33.3 (30-36) % RDW 14.8 (11.6-14.8) % Plt Count 200 (150-400) X10^3/uL Neut % (Auto) 86.2 H (50-75) % Lymph % (Auto) 5.2 L (25-40) % Rabun % (Auto) 8.5 (3-14) % Eos % (Auto) 0.0 L (2-4) % Baso % (Auto) 0.1 (0-2) % Neut # (Auto) 8900 H (6138-3955) /uL Lymph # (Auto) 500 L (5904-4137) /uL Rabun # (Auto) 900 (0-900) /uL Eos # (Auto) 0 (0-450) /uL Baso # (Auto) 0 (0-100) /uL PT (10.1-12.7) SECONDS INR (0.9-1.3) Sodium 135 L (137-145) mmol/L Potassium 4.5 (3.4-5.1) mmol/L Chloride 103 (98-107) mmol/L Carbon Dioxide 26 (22-32) mmol/L BUN 33 H (7-17) mg/dL Creatinine 1.46 H (0.52-1.04) mg/dL Estimated GFR 34.8 L (>60) mL/min BUN/Creatinine Ratio 22.6 H (6-22) Glucose 170 H (80-110) mg/dL Lactate (0.7-2.1) mmol/L Calcium 9.6 (8.4-10.2) mg/dL Magnesium 1.8 (1.6-2.3) mg/dL Total Bilirubin 1.1 (0.2-1.3) mg/dL AST 115 H (14-36) IU/L ALT 41 H (<35) IU/L Alkaline Phosphatase 74 (38-126) U/L Total Creatine Kinase (30-135) U/L CK-MB (CK-2) (<2.37) ng/mL CK-MB (CK-2) Rel Index (1.5-5.0) % Troponin I (0.01-0.034) ng/mL NT-Pro-B Natriuret Pep (<450) pg/mL Total Protein 6.6 (6.3-8.2) g/dL Albumin 4.0 (3.5-5.0) g/dL Globulin 2.6 (1.7-4.1) g/dL Albumin/Globulin Ratio 1.5 (1.0-2.8) Urine Color Urine Appearance Urine pH (4.5-8.0) Ur Specific Ethel (1.000-1.035) Urine Protein (Negative) Urine Glucose (UA) (Negative) g/dL Urine Ketones (NEGATIVE) Urine Occult Blood (Negative) Urine Nitrate (Negative) Urine Bilirubin (NEGATIVE) Urine Urobilinogen (0.2) E.U./dL Ur Leukocyte Esterase (NEGATIVE) Urine RBC (0-5/HPF) Urine WBC (0-5/HPF) Urine Bacteria (None) Ur Culture Indicated? COVID-19 PCR Negative (Negative) 04/17/20 04/17/20 04/17/20 Range/Units 03:15 03:15 03:15 WBC (4.5-11.0) X10^3/uL RBC (4.0-5.2) X10^6/uL Hgb (12.0-16.0) g/dL Hct (36-46) % MCV (80-100) fL MCH (26-34) PG MCHC (30-36) % RDW (11.6-14.8) % Plt Count (150-400) X10^3/uL Neut % (Auto) (50-75) % Lymph % (Auto) (25-40) % Rabun % (Auto) (3-14) % Eos % (Auto) (2-4) % Baso % (Auto) (0-2) % Neut # (Auto) (9112-9460) /uL Lymph # (Auto) (6803-7097) /uL Rabun # (Auto) (0-900) /uL Eos # (Auto) (0-450) /uL Baso # (Auto) (0-100) /uL PT 10.8 (10.1-12.7) SECONDS INR 0.9 (0.9-1.3) Sodium (137-145) mmol/L Potassium (3.4-5.1) mmol/L Chloride (98-107) mmol/L Carbon Dioxide (22-32) mmol/L BUN (7-17) mg/dL Creatinine (0.52-1.04) mg/dL Estimated GFR (>60) mL/min BUN/Creatinine Ratio (6-22) Glucose (80-110) mg/dL Lactate 1.8 (0.7-2.1) mmol/L Calcium (8.4-10.2) mg/dL Magnesium (1.6-2.3) mg/dL Total Bilirubin (0.2-1.3) mg/dL AST (14-36) IU/L ALT (<35) IU/L Alkaline Phosphatase (38-126) U/L Total Creatine Kinase 4841 H (30-135) U/L CK-MB (CK-2) 10.50 H (<2.37) ng/mL CK-MB (CK-2) Rel Index 0.2 L (1.5-5.0) % Troponin I 0.041 H (0.01-0.034) ng/mL NT-Pro-B Natriuret Pep 2780 H (<450) pg/mL Total Protein (6.3-8.2) g/dL Albumin (3.5-5.0) g/dL Globulin (1.7-4.1) g/dL Albumin/Globulin Ratio (1.0-2.8) Urine Color Urine Appearance Urine pH (4.5-8.0) Ur Specific Ethel (1.000-1.035) Urine Protein (Negative) Urine Glucose (UA) (Negative) g/dL Urine Ketones (NEGATIVE) Urine Occult Blood (Negative) Urine Nitrate (Negative) Urine Bilirubin (NEGATIVE) Urine Urobilinogen (0.2) E.U./dL Ur Leukocyte Esterase (NEGATIVE) Urine RBC (0-5/HPF) Urine WBC (0-5/HPF) Urine Bacteria (None) Ur Culture Indicated? COVID-19 PCR (Negative) 04/17/20 Range/Units 04:33 WBC (4.5-11.0) X10^3/uL RBC (4.0-5.2) X10^6/uL Hgb (12.0-16.0) g/dL Hct (36-46) % MCV (80-100) fL MCH (26-34) PG MCHC (30-36) % RDW (11.6-14.8) % Plt Count (150-400) X10^3/uL Neut % (Auto) (50-75) % Lymph % (Auto) (25-40) % Rabun % (Auto) (3-14) % Eos % (Auto) (2-4) % Baso % (Auto) (0-2) % Neut # (Auto) (1853-8513) /uL Lymph # (Auto) (1089-4760) /uL Rabun # (Auto) (0-900) /uL Eos # (Auto) (0-450) /uL Baso # (Auto) (0-100) /uL PT (10.1-12.7) SECONDS INR (0.9-1.3) Sodium (137-145) mmol/L Potassium (3.4-5.1) mmol/L Chloride (98-107) mmol/L Carbon Dioxide (22-32) mmol/L BUN (7-17) mg/dL Creatinine (0.52-1.04) mg/dL Estimated GFR (>60) mL/min BUN/Creatinine Ratio (6-22) Glucose (80-110) mg/dL Lactate (0.7-2.1) mmol/L Calcium (8.4-10.2) mg/dL Magnesium (1.6-2.3) mg/dL Total Bilirubin (0.2-1.3) mg/dL AST (14-36) IU/L ALT (<35) IU/L Alkaline Phosphatase (38-126) U/L Total Creatine Kinase (30-135) U/L CK-MB (CK-2) (<2.37) ng/mL CK-MB (CK-2) Rel Index (1.5-5.0) % Troponin I (0.01-0.034) ng/mL NT-Pro-B Natriuret Pep (<450) pg/mL Total Protein (6.3-8.2) g/dL Albumin (3.5-5.0) g/dL Globulin (1.7-4.1) g/dL Albumin/Globulin Ratio (1.0-2.8) Urine Color Yellow Urine Appearance Clear Urine pH 5.0 (4.5-8.0) Ur Specific Ethel 1.010 (1.000-1.035) Urine Protein 1+ H (Negative) Urine Glucose (UA) Negative (Negative) g/dL Urine Ketones Trace H (NEGATIVE) Urine Occult Blood 3+ H (Negative) Urine Nitrate Negative (Negative) Urine Bilirubin Negative (NEGATIVE) Urine Urobilinogen 0.2 (0.2) E.U./dL Ur Leukocyte Esterase Negative (NEGATIVE) Urine RBC None seen (0-5/HPF) Urine WBC None seen (0-5/HPF) Urine Bacteria None seen (None) Ur Culture Indicated? Cult not indicated COVID-19 PCR (Negative) Imaging Data Pelvis / Hip : Attestation: I personally reviewed and interpreted this imaging study as follows: My Impression: R intertrochanteric fracture Radiologist's Impression: Minimally displaced R intertrochanteric fracture CT scan - head: Radiologist's Impression: NAP CT - cervical spine: Radiologist's Impression: NAP CT scan - chest: Radiologist's Impression: No Acute cardiopulmonary process CT scan - abdomen/pelvis: Radiologist's Impression: Comminuted intertrochanteric fracture on the right with adjacent soft tissue swelling Discharge Plan Departure Patient Disposition: Admitted As Inpatient Clinical Impression: Rhabdomyolysis Qualifiers: Rhabdomyolysis type: traumatic Encounter type: initial encounter Qualified Code(s): T79.6XXA - Traumatic ischemia of muscle, initial encounter Closed fracture of right hip Qualifiers: Encounter type: initial encounter Qualified Code(s): S72.001A - Fracture of unspecified part of neck of right femur, initial encounter for closed fracture Admit Date/Time: 04/17/20 04:40 Admit Provider: Kathleen Bustamante
[2020-04-17 03:20] LABS: COVID19 -Nasal RAPID Negative (Negative)
[2020-04-17 03:28] LABS: Add Manual Diff / Slide Review NO; Basophils Absolute Auto 0 /uL (0-100); Basophils Percent Auto 0.1 % (0-2); Eosinophils Absolute Auto 0 /uL (0-450); Hematocrit 29.1 % (36-46); Hemoglobin 9.7 g/dL (12.0-16.0); Lymphocytes Absolute Auto 500 /uL (1100-4500); Lymphocytes Percent Auto 5.2 % (25-40); Mean Corpuscular HGB Conc 33.3 % (30-36); Monocytes Absolute Auto 900 /uL (0-900); Monocytes Percent Auto 8.5 % (3-14); Neutrophils Absolute Auto 8900 /uL (1500-7000); Neutrophils Percent Auto 86.2 % (50-75); Platelet Count 200 X10^3/uL (150-400); Red Blood Cell Count 2.94 X10^6/uL (4.0-5.2); Red Cell Distribution Width 14.8 % (11.6-14.8); White Blood Cell Count 10.4 X10^3/uL (4.5-11.0)
[2020-04-17 03:29] LABS: INR 0.9 (0.9-1.3); Prothrombin Time 10.8 SECONDS (10.1-12.7)
[2020-04-17 03:35] LABS: Lactate (Lactic Acid) 1.8 mmol/L (0.7-2.1)
[2020-04-17 03:36] LABS: Alanine Aminotransferase 41 IU/L (<35); Albumin Globulin Ratio 1.5 (1.0-2.8); Alkaline Phosphatase 74 U/L (38-126); Aspartate Aminotransferase 115 IU/L (14-36); BUN Creatinine Ratio 22.6 (6-22); Bilirubin Total 1.1 mg/dL (0.2-1.3); Blood Urea Nitrogen 33 mg/dL (7-17); Calcium 9.6 mg/dL (8.4-10.2); Carbon Dioxide 26 mmol/L (22-32); Chloride 103 mmol/L (98-107); Estimated Glomerular Filt Rate 34.8 mL/min (>60); Globulin 2.6 g/dL (1.7-4.1); Glucose 170 mg/dL (80-110); HEMOLYSIS < 15 (0-50); Magnesium 1.8 mg/dL (1.6-2.3); Potassium 4.5 mmol/L (3.4-5.1); Sodium 135 mmol/L (137-145); Total Protein 6.6 g/dL (6.3-8.2)
--- NOTE | 2020-04-17 03:44 | DI.RAD.S_ITS ---
PROCEDURE: XR FEMUR RT MIN 2V INDICATIONS: Right hip fracture, request per ortho TECHNIQUE: 2 views of the femur were acquired. COMPARISON: None. FINDINGS: Bones: Intertrochanteric hip fracture, otherwise no fractures or dislocations. No suspicious bony lesions. Soft tissues: No suspicious soft tissue calcifications or masses. IMPRESSION: Intertrochanteric right hip fracture. No fracture of the femur distally. Comment: Final report is concordant with preliminary interpretation by [facility] Dictated by: Renan Prescott M.D. on 04/17/2020 at 8:25 Approved by: Renan Prescott M.D. on 04/17/2020 at 8:26
[2020-04-17 03:47] LABS: NT-proBNP (BNP-Adult 18+) 2780 pg/mL (<450); Troponin I 0.041 ng/mL (0.01-0.034)
[2020-04-17 03:52] LABS: Creatine Kinase 4841 U/L (30-135)
[2020-04-17] MEDS: SODIUM CHLORIDE 0.9% 1,000 ML 1000 ML IV (03:59)
[2020-04-17] MEDS: HYDROMORPHONE 0.5 MG INJ IV (03:59)
[2020-04-17 04:09] LABS: CKMB % Relative Index 0.2 % (1.5-5.0)
[2020-04-17 04:40] LABS: Bacteria Urine None Seen; RBC Urine None Seen (0-5/HPF); WBC Urine None Seen (0-5/HPF)
[2020-04-17 04:41] LABS: Appearance Urine UA CLEAR; Bilirubin Urine UA NEGATIVE (NEGATIVE); Color Urine UA YELLOW; Glucose Urine UA NEGATIVE (Negative); Ketones Urine UA TRACE (NEGATIVE); Leukocyte Esterase Urine UA NEGATIVE (NEGATIVE); Nitrite Urine UA NEGATIVE (Negative); Occult Blood Urine UA 3+ (Negative); Protein Urine UA 1+ (Negative); Urobilinogen Urine UA 0.2 E.U./dL (0.2)
[2020-04-17 04:49] LABS: Culture Indicated Urine Cult Not Indicated
[2020-04-17] MEDS: HYDROCODONE/ACET 5/325 TABLET 2 TAB PO ×4 (05:33→21:22)
--- NOTE | 2020-04-17 05:56 | P.HP_ITS ---
History of Present Illness History of Present Illness Date Patient Seen: 04/17/20 Time Patient Seen: 05:21 Chief complaint: GLF, right hip pain Narrative: Patient is a 74F Holliekhoi Granger who presented to the ER with a chief complaint of severe R hip pain since a fall Thrusday night. Patient states that she was getting ready to go to bed evening of Living her puppy out she is unaware if she tripped or had a loss of consciousness she does not believe that she hit her head but is unsure. Patient remained struggling on the floor to try to reach her phone all night night and all day on Sunday until finally her puppy knocked her cellphone onto the floor and she was able to dial 911. Patient has a history of hypertension, lipidemia, diabetes type 2, hypercalcemia, osteopenia, and GERD. Patient denies CP, SOB, N/V/D, neck, back or abdominal pain. She has significant pain in her hip with movement, which improved with rest. in the ER. She was given ketamine and fentanyl by the EMS and then received hydromorphone in the emergency, has no pain at this time. She feels weak, and worn out but she is awake, alert, and oriented and denies numbness, tingling, or weakness. Recent injury or illness, abnormal bleeding or bruising. Patient had a positive right hip femur neck fracture. CK-MB 10.05, troponin 0.041, total creatinine kinase 4041, BNP 2007 and 80, estimated GFR 34.8, hemoglobin 9.7, hematocrit 29.1, BUN 33, creatinine 1.46, sodium 135, glucose 170. Patient History Medical History (Updated 04/17/20 @ 05:58 by CANDICE Novak-RUSTY) Benign essential HTN GERD (gastroesophageal reflux disease) Hiatal hernia Hyperlipidemia associated with type 2 diabetes mellitus Osteopenia Psoriasis Family & Social History Family History (Updated 04/17/20 @ 06:00 by CANDICE Novak-RUSTY) Mother Breast cancer Family/Other Breast cancer Safety & Behavioral: Feels Safe in Current Yes Environment Tobacco & Substance use: Smoking Status Never smoker alcohol intake frequency a few times a month Substance Use Type does not use Meds Home Medications and Allergies Home Medications Medication Instructions Recorded Confirmed Type atorvastatin 20 mg PO DAILY 01/07/20 01/07/20 History benazepril 20 mg BID 01/07/20 01/07/20 History furosemide 20 mg PO DAILY 01/07/20 01/07/20 History metformin 500 mg BID 01/07/20 01/07/20 History metoprolol succinate 25 mg PO DAILY 01/07/20 01/07/20 History Allergies Allergy/AdvReac Type Severity Reaction Status Date / Time Amoxicillin Allergy Unknown Uncoded 08/08/17 11:50 Esomeprazole Allergy Unknown Uncoded 08/08/17 11:50 Hydrochlorothiazide Allergy Unknown Uncoded 08/08/17 11:50 Review of Systems Review of Systems ROS: Yes All systems reviewed with the patient and are negative except as otherwise documented Constitutional Constitutional: Reports system reviewed and no additional complaints, except as documented Eyes Eyes: Reports system reviewed and no additional complaints, except as documented ENT Ears, Nose, Mouth, and Throat: Yes system reviewed and no additional complaints, except as documented Cardiovascular Cardiovascular: Reports system reviewed and no additional complaints, except as documented Respiratory Respiratory: Reports system reviewed and no additional complaints, except as documented Gastrointestinal Gastrointestinal: Reports system reviewed and no additional complaints, except as documented Genitourinary Genitourinary: Reports system reviewed and no additional complaints, except as documented Musculoskeletal Musculoskeletal: Reports myalgias, Reports arthralgias, Reports joint swelling, Reports limited range of motion, Reports radiating pain into limb and Reports stiffness Comments: immobility due to hip. Integumentary/Breasts Skin/Breast: Reports system reviewed and no additional complaints, except as documented Neurologic Neurologic: Reports system reviewed and no additional complaints, except as documented Psychiatric Psychiatric: Reports system reviewed and no additional complaints, except as documented Endocrine Endocrine: Reports system reviewed and no additional complaints, except as documented Hematologic/Lymphatic Hematologic/Lymphatic: Reports system reviewed and no additional complaints, except as documented Allergic/Immunologic Allergic/Immunologic: Reports system reviewed and no additional complaints, except as documented Exam Vital Signs (past 8 hours): - 04/17/20 02:48 04/17/20 02:58 04/17/20 03:00 Temperature 99.1 F Pulse Rate 90 103 H 185 H Respiratory Rate 20 24 50 H Blood Pressure 172/90 H 171/72 H Pulse Oximetry 98 99 100 04/17/20 03:17 04/17/20 03:35 04/17/20 04:03 Temperature Pulse Rate 88 89 Respiratory Rate 31 H Blood Pressure 179/121 H Pulse Oximetry 94 100 04/17/20 04:08 04/17/20 04:30 04/17/20 05:03 Temperature 98.8 F Pulse Rate 91 H 100 H 104 H Respiratory Rate 30 H 35 H 16 Blood Pressure 171/72 H 149/72 H Pulse Oximetry 100 100 100 04/17/20 05:07 Temperature 98.8 F Pulse Rate 104 H Respiratory Rate 16 Blood Pressure 149/72 H Pulse Oximetry 100 Oxygen Delivery Method Room Air Oxygen Flow Rate 0 Narrative Exam Narrative: General: This is a palmira 74-year-old elderly female, well- developed well-nourished in no acute distress at this time HENT: Normocephalic, atraumatic, extraocular muscles intact, oropharynx is clear and mucous membranes are moist, neck is supple and symmetrical, trachea is midline, no thyroid enlargement nontender, no masses palpated Lungs: Auscultation of all lung crowell are clear without adventitious sounds, wheezes, rhonchi or rales Cardiac: S1-S2 with regular rate and rhythm without murmur rubs or gallops no carotid bruit present Abdomen: Soft nontender, negative for organomegaly or masses, bowel sounds are present in all 4 quadrants without guarding or rebound, no CVA tenderness Musculoskeletal: Patient has substantial bruising and abrasions to bilateral elbows, as well as significant bruising to the right hip area and leg inflammation. Pulses are intact and no peripheral edema noted. All other extremities full range of motion and radial pedal pulses are intact without clubbing cyanosis or edema. Skin: Is warm dry and intact without rashes ulcerations or petechiae with the e xception of the above noted right hip and elbows. Neuro: Patient is alert and orientated x3 with appropriate affect mental status an attitude the context and judgments, sensation to touch intact no gross deficits noted of cranial nerves. Objective Labs Result Diagrams: 04/17/20 03:15 04/17/20 03:15 Labs: Laboratory Results - last 24 hr 04/17/20 04/17/20 04/17/20 02:55 03:15 03:15 WBC 10.4 RBC 2.94 L Hgb 9.7 L Hct 29.1 L MCV 99.0 MCH 33.0 MCHC 33.3 RDW 14.8 Plt Count 200 Neut % (Auto) 86.2 H Lymph % (Auto) 5.2 L [place] % (Auto) 8.5 Eos % (Auto) 0.0 L Baso % (Auto) 0.1 Neut # (Auto) 8900 H Lymph # (Auto) 500 L [place] # (Auto) 900 Eos # (Auto) 0 Baso # (Auto) 0 PT INR Sodium 135 L Potassium 4.5 Chloride 103 Carbon Dioxide 26 BUN 33 H Creatinine 1.46 H Estimated GFR 34.8 L BUN/Creatinine Ratio 22.6 H Glucose 170 H Lactate Calcium 9.6 Magnesium 1.8 Total Bilirubin 1.1 AST 115 H ALT 41 H Alkaline Phosphatase 74 Total Creatine Kinase CK-MB (CK-2) CK-MB (CK-2) Rel Index Troponin I NT-Pro-B Natriuret Pep Total Protein 6.6 Albumin 4.0 Globulin 2.6 Albumin/Globulin Ratio 1.5 Urine Color Urine Appearance Urine pH Ur Specific [place] Urine Protein Urine Glucose (UA) Urine Ketones Urine Occult Blood Urine Nitrate Urine Bilirubin Urine Urobilinogen Ur Leukocyte Esterase Urine RBC Urine WBC Urine Bacteria Ur Culture Indicated? COVID-19 PCR Negative 04/17/20 04/17/20 04/17/20 03:15 03:15 03:15 WBC RBC Hgb Hct MCV MCH MCHC RDW Plt Count Neut % (Auto) Lymph % (Auto) [place] % (Auto) Eos % (Auto) Baso % (Auto) Neut # (Auto) Lymph # (Auto) [place] # (Auto) Eos # (Auto) Baso # (Auto) PT 10.8 INR 0.9 Sodium Potassium Chloride Carbon Dioxide BUN Creatinine Estimated GFR BUN/Creatinine Ratio Glucose Lactate 1.8 Calcium Magnesium Total Bilirubin AST ALT Alkaline Phosphatase Total Creatine Kinase 4841 H CK-MB (CK-2) 10.50 H CK-MB (CK-2) Rel Index 0.2 L Troponin I 0.041 H NT-Pro-B Natriuret Pep 2780 H Total Protein Albumin Globulin Albumin/Globulin Ratio Urine Color Urine Appearance Urine pH Ur Specific [place] Urine Protein Urine Glucose (UA) Urine Ketones Urine Occult Blood Urine Nitrate Urine Bilirubin Urine Urobilinogen Ur Leukocyte Esterase Urine RBC Urine WBC Urine Bacteria Ur Culture Indicated? COVID-19 PCR 04/17/20 04:33 WBC RBC Hgb Hct MCV MCH MCHC RDW Plt Count Neut % (Auto) Lymph % (Auto) [place] % (Auto) Eos % (Auto) Baso % (Auto) Neut # (Auto) Lymph # (Auto) [place] # (Auto) Eos # (Auto) Baso # (Auto) PT INR Sodium Potassium Chloride Carbon Dioxide BUN Creatinine Estimated GFR BUN/Creatinine Ratio Glucose Lactate Calcium Magnesium Total Bilirubin AST ALT Alkaline Phosphatase Total Creatine Kinase CK-MB (CK-2) CK-MB (CK-2) Rel Index Troponin I NT-Pro-B Natriuret Pep Total Protein Albumin Globulin Albumin/Globulin Ratio Urine Color Yellow Urine Appearance Clear Urine pH 5.0 Ur Specific [place] 1.010 Urine Protein 1+ H Urine Glucose (UA) Negative Urine Ketones Trace H Urine Occult Blood 3+ H Urine Nitrate Negative Urine Bilirubin Negative Urine Urobilinogen 0.2 Ur Leukocyte Esterase Negative Urine RBC None seen Urine WBC None seen Urine Bacteria None seen Ur Culture Indicated? Cult not indicated COVID-19 PCR Assessment & Plan Assessment & Plan narrative: Patient is 74-year-old female who has suffered a right closed neck of right femur hip fracture, with rhabdomyolysis following approximately 24 hours on her kitchen floor. Patient has a history of hypertension hyperlipidemia and diabetes time toe hypercalcemia osteopenia and GERD. The patient's age injury and comorbidities put her at higher risk and mortality due to DVT, or PE, acute kidney injury, 3rd spacing, and hyperkalemia. Patient's rhabdomyolysis will need to be resolved prior to surgical intervention. 1. Traumatic right hip fracture (closed neck of right femur), acute, present on admission -CT of abdomen and pelvis/ hip x-ray/femur xray demonstrated a closed fracture o f the neck of the right femur. Head CT and cervical CT ordered in ER. Patient's CK-MB 10.05, troponin 0.041, total creatinine kinase 4841, BNP 2780, estimated GFR 34.8, BUN 33, creatinine 1.46, hemoglobin 9.7, hematocrit 29.1, glucose 170. UA negative -hydration normal saline 100 cc an hour, telemedicine, vital signs Q 4 hours, blood sugar checks a.c. and HS, KATIE Q shift with a goal urinary output of to 200- 300 per hour, weights monitored daily, Mathis in place and monitored Q shift, additional labs ordered lactate uric acid, and magnesium. Daily labs CBC and CMP. -ER completed surgical consult patient's once stabilized to go to surgery. 2. Hyperlipidemia associated with type 2 diabetes non-insulin dependent, chronic, stable, not present on admission -continue patient's home medications of atorvastatin -hold patient's metformin, will provide patient 1 unit of Lantus at bedtime-will titrate up based on morning blood sugar with a goal of 120 will continue to add to Lantus dosage by 1-2 units per nightly to goal blood sugar, monitor patient for hypoglycemia -blood sugar checks a.c. and HS 3. Essential hypertension, acute on chronic, present on admission -continue patient's home benazepril and metoprolol and Lasix Code status: Full code Decision maker:Pearl Joneslucy daughter COVID PCR: Negative VTE prophylaxis: Enoxaparin 30 mg
[2020-04-17 06:14] LABS: Add Manual Diff / Slide Review NO; Basophils Absolute Auto 0 /uL (0-100); Basophils Percent Auto 0.1 % (0-2); Eosinophils Absolute Auto 0 /uL (0-450); Hematocrit 27.2 % (36-46); Lymphocytes Absolute Auto 600 /uL (1100-4500); Mean Corpuscular HGB Conc 33.1 % (30-36); Mean Corpuscular Volume 99.6 fL (80-100); Monocytes Absolute Auto 800 /uL (0-900); Monocytes Percent Auto 8.6 % (3-14); Neutrophils Absolute Auto 8400 /uL (1500-7000); Neutrophils Percent Auto 85.3 % (50-75); Platelet Count 187 X10^3/uL (150-400); Red Blood Cell Count 2.73 X10^6/uL (4.0-5.2); Red Cell Distribution Width 14.8 % (11.6-14.8); White Blood Cell Count 9.8 X10^3/uL (4.5-11.0)
[2020-04-17 06:25] LABS: Hemoglobin A1C% w Est Avg Glu 5.3 % (4.0-6.0); Lactate (Lactic Acid) 1.2 mmol/L (0.7-2.1); Uric Acid 9.5 mg/dL (2.5-6.2)
[2020-04-17 06:27] LABS: Alanine Aminotransferase 39 IU/L (<35); Albumin 3.6 g/dL (3.5-5.0); Albumin Globulin Ratio 1.5 (1.0-2.8); Alkaline Phosphatase 67 U/L (38-126); Aspartate Aminotransferase 103 IU/L (14-36); BUN Creatinine Ratio 21.8 (6-22); Bilirubin Total 0.9 mg/dL (0.2-1.3); Blood Urea Nitrogen 31 mg/dL (7-17); Calcium 8.9 mg/dL (8.4-10.2); Carbon Dioxide 25 mmol/L (22-32); Chloride 104 mmol/L (98-107); Globulin 2.4 g/dL (1.7-4.1); Glucose 141 mg/dL (80-110); HEMOLYSIS < 15 (0-50); Potassium 4.5 mmol/L (3.4-5.1); Sodium 134 mmol/L (137-145)
--- NOTE | 2020-04-17 06:58 | PC.NURSE ---
Admit Note-Patient brought to room 215 via stretcher, A/Ox3, slider board used for transfer. Rates pain to Rt hip/thigh 9/10 with spasms., medicated with 2 [place]. Significant bruising to Rt hip, thigh, and groin, leg is shortened and externally rotated, also has scattered bruising to BUEs and rash under breasts from bra. Mathis in place,
[2020-04-17] MEDS: SODIUM CHLORIDE 0.9% 1,000 ML 100 ML IV (09:11)
[2020-04-17] MEDS: METOPROLOL ER 25 MG TABLET PO (09:11)
[2020-04-17] MEDS: DOCUSATE 100 MG CAPSULE PO ×2 (09:11→20:38)
--- NOTE | 2020-04-17 09:30 | OT.IPNOTE ---
Addendum entered and electronically signed by WILTON Altman OT 04/17/20 16:29: Will d/c order and await new orders after sx. Original Note: OT order received. Ortho to see pt today for hip fx. Will hold at this time and continue to follow.
--- NOTE | 2020-04-17 10:49 | CM.DANOTE ---
DCP: Case received, EMR reviewed and met with patient. Daughter, Rody, was also at bedside. Was able to obtain information regarding patient's baseline activity level, as well as current living situation. DCP assessment completed with information currently available. Patient is a 74 year old female who admitted early this morning to the care of the hospitalist team. PCP: Dr. Eryn Molina. Payer: confirmed: Medicare/[employer]. Patient came to the hospital via EMS, due to a ground level fall that occurred at home. According to notes, patient had fallen on , and was on the floor until early this am. According to notes, patient had crawled on the floor, and was attempting to get to the phone. Apparently, her puppy had knocked her phone to the ground, and she was able to call EMS. Patient did not remember how she had fallen. Met with patient in her room. She was sitting up in her bed. Her daughter, Rody Granger, just arrived. Patient confirmed that she resides alone, and is independent at baseline. She can't remember how she fell, if she tripped over her dog, or what actually happened. Patient holds diagnosis of intertrochanteric right hip fracture with rhabdomyolysis. Surgery is supposed to come in and consult. Discussed in team rounds, and Dr. Gleason indicated that she is waiting to see when patient will be able to have her surgery. When this life care planner met with patient and family, daughter indicated, we would rather her not go to a penit[facility]iary rehab facility, due to the COVID. Stated, between her and her sister, they can care for their mother at home, and home health would be an option. P: DCP to continue to check in. Will see when patient will have her surgery, and once she is able to have P.T, will also check in. May go ahead and send out referrals to penitentiary tomorrow, in case this is highly recommended, and patient consents to go, for a back up plan. [facility] is currently not accepting patients at this time, secondary to a positive staff member, and residents needing to be quaranteened. Will pursue other facilities. Anai Saldaña RN/Building Mechanic
--- NOTE | 2020-04-17 11:15 | P.CONS_ITS ---
History of Present Illness Consult details Date Patient Seen: 04/17/20 Time Patient Seen: 11:16 Chief complaint: GLF, right hip pain Reason for consult: right hip intretrochanteric fracture Narrative: Patient is a 74 yo female who presented to the ER with a chief complaint of severe R hip pain since a fall night. Patient was getting ready for bed when she fell. She is unsure if she tripped over something or had a syncopal episode. Patient remained struggling on the floor to try to reach her phone all night night and all day on Sunday until she was able to reach her cellphone. She states she has occasional pain in the right hip prior to the fall but nothing severe. Community ambulator. Meds Home Medications and Allergies Home Medications Medication Instructions Recorded Confirmed Type atorvastatin 20 mg PO DAILY 01/07/20 04/17/20 History benazepril 20 mg BID 01/07/20 04/17/20 History furosemide 20 mg PO DAILY 01/07/20 04/17/20 History metformin 500 mg BID 01/07/20 04/17/20 History metoprolol succinate 25 mg PO DAILY 01/07/20 04/17/20 History Allergies Allergy/AdvReac Type Severity Reaction Status Date / Time amoxicillin Allergy Unknown Verified 04/17/20 08:44 esomeprazole Allergy Unknown Verified 04/17/20 08:44 hydrochlorothiazide Allergy Unknown Verified 04/17/20 08:44 Exam Vital Signs (past 8 hours): - 04/17/20 03:17 04/17/20 03:35 04/17/20 04:03 Temperature Pulse Rate 88 89 Respiratory Rate 31 H Blood Pressure 179/121 H Pulse Oximetry 94 100 04/17/20 04:08 04/17/20 04:30 04/17/20 05:03 Temperature 98.8 F Pulse Rate 91 H 100 H 104 H Respiratory Rate 30 H 35 H 16 Blood Pressure 171/72 H 149/72 H Pulse Oximetry 100 100 100 04/17/20 05:07 04/17/20 08:59 04/17/20 09:11 Temperature 98.8 F 98.1 F Pulse Rate 104 H 96 H 107 H Respiratory Rate 16 16 Blood Pressure 149/72 H 108/55 L 105/49 L Pulse Oximetry 100 97 Oxygen Delivery Method Room Air Oxygen Flow Rate 0 Narrative Exam Narrative: NV intact in RLE, no skin breaks over the right hip Objective Imaging Hip x-ray: My impression: Right intertrochanetric fracture with free lesser trochanter fracture fragment. Labs Result Diagrams: 04/17/20 06:00 04/17/20 06:00 Labs: Laboratory Results - last 24 hr 04/17/20 04/17/20 04/17/20 02:55 03:15 03:15 WBC 10.4 RBC 2.94 L Hgb 9.7 L Hct 29.1 L MCV 99.0 MCH 33.0 MCHC 33.3 RDW 14.8 Plt Count 200 Neut % (Auto) 86.2 H Lymph % (Auto) 5.2 L [place] % (Auto) 8.5 Eos % (Auto) 0.0 L Baso % (Auto) 0.1 Neut # (Auto) 8900 H Lymph # (Auto) 500 L [place] # (Auto) 900 Eos # (Auto) 0 Baso # (Auto) 0 PT INR Sodium 135 L Potassium 4.5 Chloride 103 Carbon Dioxide 26 BUN 33 H Creatinine 1.46 H Estimated GFR 34.8 L BUN/Creatinine Ratio 22.6 H Glucose 170 H Hemoglobin A1c Lactate Uric Acid Calcium 9.6 Magnesium 1.8 Total Bilirubin 1.1 AST 115 H ALT 41 H Alkaline Phosphatase 74 Total Creatine Kinase CK-MB (CK-2) CK-MB (CK-2) Rel Index Troponin I NT-Pro-B Natriuret Pep Total Protein 6.6 Albumin 4.0 Globulin 2.6 Albumin/Globulin Ratio 1.5 Urine Color Urine Appearance Urine pH Ur Specific [place] Urine Protein Urine Glucose (UA) Urine Ketones Urine Occult Blood Urine Nitrate Urine Bilirubin Urine Urobilinogen Ur Leukocyte Esterase Urine RBC Urine WBC Urine Bacteria Ur Culture Indicated? COVID-19 PCR Negative 04/17/20 04/17/20 04/17/20 03:15 03:15 03:15 WBC RBC Hgb Hct MCV MCH MCHC RDW Plt Count Neut % (Auto) Lymph % (Auto) [place] % (Auto) Eos % (Auto) Baso % (Auto) Neut # (Auto) Lymph # (Auto) [place] # (Auto) Eos # (Auto) Baso # (Auto) PT 10.8 INR 0.9 Sodium Potassium Chloride Carbon Dioxide BUN Creatinine Estimated GFR BUN/Creatinine Ratio Glucose Hemoglobin A1c Lactate 1.8 Uric Acid Calcium Magnesium Total Bilirubin AST ALT Alkaline Phosphatase Total Creatine Kinase 4841 H CK-MB (CK-2) 10.50 H CK-MB (CK-2) Rel Index 0.2 L Troponin I 0.041 H NT-Pro-B Natriuret Pep 2780 H Total Protein Albumin Globulin Albumin/Globulin Ratio Urine Color Urine Appearance Urine pH Ur Specific [place] Urine Protein Urine Glucose (UA) Urine Ketones Urine Occult Blood Urine Nitrate Urine Bilirubin Urine Urobilinogen Ur Leukocyte Esterase Urine RBC Urine WBC Urine Bacteria Ur Culture Indicated? COVID-19 PCR 04/17/20 04/17/20 04/17/20 04:33 06:00 06:00 WBC 9.8 RBC 2.73 L Hgb 9.0 L Hct 27.2 L MCV 99.6 MCH 33.0 MCHC 33.1 RDW 14.8 Plt Count 187 Neut % (Auto) 85.3 H Lymph % (Auto) 6.0 L [place] % (Auto) 8.6 Eos % (Auto) 0.0 L Baso % (Auto) 0.1 Neut # (Auto) 8400 H Lymph # (Auto) 600 L [place] # (Auto) 800 Eos # (Auto) 0 Baso # (Auto) 0 PT INR Sodium 134 L Potassium 4.5 Chloride 104 Carbon Dioxide 25 BUN 31 H Creatinine 1.42 H Estimated GFR 36.0 L BUN/Creatinine Ratio 21.8 Glucose 141 H Hemoglobin A1c Lactate Uric Acid Calcium 8.9 Magnesium Total Bilirubin 0.9 AST 103 H ALT 39 H Alkaline Phosphatase 67 Total Creatine Kinase CK-MB (CK-2) CK-MB (CK-2) Rel Index Troponin I NT-Pro-B Natriuret Pep Total Protein 6.0 L Albumin 3.6 Globulin 2.4 Albumin/Globulin Ratio 1.5 Urine Color Yellow Urine Appearance Clear Urine pH 5.0 Ur Specific [place] 1.010 Urine Protein 1+ H Urine Glucose (UA) Negative Urine Ketones Trace H Urine Occult Blood 3+ H Urine Nitrate Negative Urine Bilirubin Negative Urine Urobilinogen 0.2 Ur Leukocyte Esterase Negative Urine RBC None seen Urine WBC None seen Urine Bacteria None seen Ur Culture Indicated? Cult not indicated COVID-19 PCR 04/17/20 04/17/20 04/17/20 06:00 06:00 06:00 WBC RBC Hgb Hct MCV MCH MCHC RDW Plt Count Neut % (Auto) Lymph % (Auto) [place] % (Auto) Eos % (Auto) Baso % (Auto) Neut # (Auto) Lymph # (Auto) [place] # (Auto) Eos # (Auto) Baso # (Auto) PT INR Sodium Potassium Chloride Carbon Dioxide BUN Creatinine Estimated GFR BUN/Creatinine Ratio Glucose Hemoglobin A1c 5.3 Lactate 1.2 Uric Acid 9.5 H Calcium Magnesium Total Bilirubin AST ALT Alkaline Phosphatase Total Creatine Kinase CK-MB (CK-2) CK-MB (CK-2) Rel Index Troponin I NT-Pro-B Natriuret Pep Total Protein Albumin Globulin Albumin/Globulin Ratio Urine Color Urine Appearance Urine pH Ur Specific [place] Urine Protein Urine Glucose (UA) Urine Ketones Urine Occult Blood Urine Nitrate Urine Bilirubin Urine Urobilinogen Ur Leukocyte Esterase Urine RBC Urine WBC Urine Bacteria Ur Culture Indicated? COVID-19 PCR Assessment & Plan Assessment & Plan narrative: Patient is a 74 yo F who had a GLF 2 days ago. She was down on the ground for nearly 2 days prior to being able to reach her cellphone. She is currently being medically optimized prior to surgeyr. Her CK- MB is elevated due to prolonged time down. I had a long discussion with the patient and her daughter regarding the fracture pattern and possible treatment options. Plan for right hip short CMN for IT hip fracture. - NPO - repeat CK-MB and CBC - NWB RLE - OCTOR this afternoon vs. tomorrow am COVID-19 COVID-19 status: Negative Result date/Date tested (Pos, Neg/Pending): 04/17/20 Time Spent With Patient Time with patient: 25 - 35 minutes
[2020-04-17 12:48] LABS: Blood Urea Nitrogen 31 mg/dL (7-17); Calcium 8.8 mg/dL (8.4-10.2); Carbon Dioxide 25 mmol/L (22-32); Chloride 105 mmol/L (98-107); Estimated Glomerular Filt Rate 36.3 mL/min (>60); Glucose 128 mg/dL (80-110); HEMOLYSIS < 15 (0-50); Sodium 133 mmol/L (137-145)
--- NOTE | 2020-04-17 12:49 | PT-IP ANOTE ---
pt with R hip fracture and is pending surgery. talked to nurse regarding pt's status and PT will d/c eval order and will await for new orders after surgery. nurse agreed.
[2020-04-17 12:54] LABS: Add Manual Diff / Slide Review NO; Basophils Absolute Auto 0 /uL (0-100); Basophils Percent Auto 0.4 % (0-2); Eosinophils Absolute Auto 0 /uL (0-450); Eosinophils Percent Auto 0.1 % (2-4); Hematocrit 24.4 % (36-46); Hemoglobin 8.2 g/dL (12.0-16.0); Lymphocytes Absolute Auto 1100 /uL (1100-4500); Lymphocytes Percent Auto 13.8 % (25-40); Mean Corpuscular HGB Conc 33.4 % (30-36); Mean Corpuscular Hemoglobin 33.3 PG (26-34); Mean Corpuscular Volume 99.6 fL (80-100); Monocytes Absolute Auto 800 /uL (0-900); Monocytes Percent Auto 10.5 % (3-14); Neutrophils Absolute Auto 6100 /uL (1500-7000); Neutrophils Percent Auto 75.2 % (50-75); Platelet Count 172 X10^3/uL (150-400); Red Blood Cell Count 2.45 X10^6/uL (4.0-5.2); Red Cell Distribution Width 14.6 % (11.6-14.8); White Blood Cell Count 8.1 X10^3/uL (4.5-11.0)
[2020-04-17 12:55] LABS: Creatine Kinase 2814 U/L (30-135)
--- NOTE | 2020-04-17 17:00 | PC.NURSE ---
Addendum entered by Zena Tam R.N. 04/17/20 22:50: IV fluid rate increased as ordered to 150 cc/hr. Pt resting quietly in bed without signs of distress or discomfort. Agreed to ice to right groin and right lateral hip. BRAINER applied. Addendum entered by Zena Tam R.N. 04/17/20 20:04: Hospitalist Robby sees pt. Requests this credit underwriter check pt's iv site. Noted some wrist swelling left hand distal to iv site. Pt reports this looks about normal. Able to draw blood and flush iv without difficulty. Able to palpate flow of fluid along vein with flush. Pt denies any discomfort. No signs of infiltrate. Elevated pt's left hand/wrist on pillow and will continue to monitor. Left thigh area of pressure from catheter tubing inspected several times this shift and catheter tubing adjusted to prevent prolonged pressure. Catheter tubing does leave imprint on pt's skin, but skin is intact and pressure areas checked and relieved. Pt denies right hip pain at rest. Will continue with plan of care. Addendum entered by Zena Tam R.N. 04/17/20 19:24: Attempted to reposition pt in bed as to relieve pressure to buttocks. Pt does not tolerate this well. Able to place small pillow under left buttock and slightly offload pt to right side. Emptied coello catheter of 75 cc's clear, yellow urine. Hospitalist Robby informed of urinary output since shift began @ 3 p.m. as well as pt's c/o sausage fingers, indentation/edema to LLE where coello is secured as well as H and H trends today. Addendum entered by Zena Tam R.N. 04/17/20 18:47: Resting quietly in bed with eyes closed. No signs of distress or discomfort. Original Note: Pt is in bed in semi-reclining position with daughter at bedside. Admits to intermittent sharp pain to right hip. Declines offer for ice to site. Pain meds as per emar. RLE shortened and externally rotated. BL calf scd's placed with rationale provided. Pt's daughter inquires about I.S. for pt and this was provided to pt with appropriate teaching. Coello to gravity with clear, yellow urine. IV fluids infusing to left wrist iv site without difficulty. Slight generalized edema noted. Encouraged pt and pt's daughter to call for needs. Multiple bruises to BL UE's and to right hip.
[2020-04-17] MEDS: SODIUM CHLORIDE 0.9% 1,000 ML 150 ML IV (19:01)
[2020-04-17] MEDS: ATORVASTATIN 20 MG TABLET PO (20:38)
[2020-04-17] MEDS: SENNOSIDES 8.6 MG TABLET 17.2 MG PO (20:39)
[2020-04-18] VITALS (19 sets, daily range): BP systolic 112–164; BP diastolic 51–89; PULSE 68–88; RESP 11–18; TEMP 36.1–37.3; O2SAT 88–100; BMI 24.2
--- NOTE | 2020-04-18 | DI.RAD.S_ITS ---
PROCEDURE: XR HIP W PEL IF DONE RT 2V INDICATIONS: FRACTURE NAILING. TECHNIQUE: 2 intraoperative views of the hip were acquired. COMPARISON: [facility], CR, XR HIP W PEL IF DONE RT 2V, 04/17/2020, 2:48. FINDINGS: Right femur intramedullary siobhan and screw fixation for intertrochanteric fracture. Hardware is in the expected position. IMPRESSION: Expected appearance of the right femur intramedullary siobhan and screw fixation. Dictated by: Rashard Hays M.D. on 04/18/2020 at 10:56 Approved by: Rashard Hays M.D. on 04/18/2020 at 10:57
[2020-04-18] MEDS: SODIUM CHLORIDE 0.9% 1,000 ML 150 ML IV (02:36)
[2020-04-18] MEDS: HYDROCODONE/ACET 5/325 TABLET 2 TAB PO ×4 (02:47→19:27)
[2020-04-18 05:53] LABS: Add Manual Diff / Slide Review NO; Basophils Absolute Auto 0 /uL (0-100); Basophils Percent Auto 0.4 % (0-2); Creatine Kinase 2086 U/L (30-135); Eosinophils Absolute Auto 0 /uL (0-450); Eosinophils Percent Auto 0.6 % (2-4); Hematocrit 21.4 % (36-46); Hemoglobin 7.1 g/dL (12.0-16.0); Lymphocytes Absolute Auto 600 /uL (1100-4500); Lymphocytes Percent Auto 14.5 % (25-40); Mean Corpuscular HGB Conc 33.1 % (30-36); Mean Corpuscular Hemoglobin 33.1 PG (26-34); Monocytes Absolute Auto 300 /uL (0-900); Monocytes Percent Auto 5.9 % (3-14); Neutrophils Absolute Auto 3400 /uL (1500-7000); Neutrophils Percent Auto 78.6 % (50-75); Platelet Count 138 X10^3/uL (150-400); Red Blood Cell Count 2.13 X10^6/uL (4.0-5.2); Red Cell Distribution Width 15.2 % (11.6-14.8); White Blood Cell Count 4.3 X10^3/uL (4.5-11.0)
[2020-04-18 05:55] LABS: BUN Creatinine Ratio 18.4 (6-22); Blood Urea Nitrogen 27 mg/dL (7-17); Calcium 8.3 mg/dL (8.4-10.2); Carbon Dioxide 25 mmol/L (22-32); Chloride 110 mmol/L (98-107); Estimated Glomerular Filt Rate 34.6 mL/min (>60); Glucose 99 mg/dL (80-110); HEMOLYSIS < 15 (0-50); Sodium 134 mmol/L (137-145)
[2020-04-18 06:03] LABS: Troponin I 0.019 ng/mL (0.01-0.034)
[2020-04-18 06:52] LABS: HEMOLYSIS < 15 (0-50); Iron 21 ug/dL (37-170)
[2020-04-18 06:56] LABS: Lactate Dehydrogenase 2024 U/L (313-618)
[2020-04-18 07:03] LABS: Percent Iron Saturation 8 % (15-50); Total Iron Binding Capacity 258 ug/dL (265-497); Transferrin 211 mg/dL (206-381)
[2020-04-18 07:16] LABS: Reticulocyte Count, Percent 2.2 % (1.06-2.63)
[2020-04-18 07:40] LABS: Vitamin B12 920 pg/mL (239-931)
--- NOTE | 2020-04-18 08:02 | PM.PREOP ---
Pre-operative Note COVID-19 COVID-19 status: Negative Result date/Date tested (Pos, Neg/Pending): 04/17/20 Interval Note History & Physical reviewed/Exam performed by Physician: Yes Changes to H&P: No H&P completed within 30 days and has changed as indicated here:: Plan for right hip short CMN for IT hip fracture
--- NOTE | 2020-04-18 08:08 | CM.DPC ---
DCP Cont: Went ahead and faxed Janet Gomez, [facility], and [facility], in case patient does need skilled. She has not yet had surgery, most likely today. On referrals, indicated that patient is hopeful to go home, but if she does need skilled rehab, wanted to have alternate plans. [facility] is not accepting patients at this time. P: DCP to follow closely. Patient most likely will have surgery today, she was inpatient status as of yesterday. She will work with P.T. post surgery, and will consult with them as well. Referrals sent to three facilities as back up, for home. Anai Saldaña RN/[employer]
[2020-04-18 08:18] LABS: Ferritin 1540 ng/mL (11-264)
--- NOTE | 2020-04-18 09:06 | PC.NURSE ---
Patient picked up for surgery.
[2020-04-18] MEDS: LACTATED RINGERS 1,000 ML 42 ML IV (09:15)
[2020-04-18] MEDS: CLINDAMYCIN 600 MG/50 ML PIGGYBACK 50 MG IV (09:15)
--- NOTE | 2020-04-18 11:01 | SUR.OPER ---
Head on pillow. Supine on fracture table with operative leg secured in traction. Other leg secured in padded stirrup. Arms across chest, secured with sheet.
[2020-04-18] MEDS: BUPIVACAINE 0.5% W/ EPI (PF) 30 ML VIAL INJ (11:15)
--- NOTE | 2020-04-18 11:25 | PM.OP.1 ---
Operative Date/Time/Diagnoses Date of procedure: 04/18/20 Time of procedure: 11:25 Pre-op diagnosis: Right IT hip fracture Post-op diagnosis: same Procedure & Clinicians Procedure: Right short CMN Same procedure as scheduled: Yes Indications: Displaced intertrochanteric right femur fracture Surgeon: Carlin Loving Click Yes if Unassisted: Yes Anesthesia Type: General Operative Notes Findings: Displaced intertrochanteric femur fracture of the right femur Closure Type: primary Specimen(s): none sent Prosthetic devices, grafts, tissues, transplants, or devices: Manzanares and nephew 10 mm x 18 cm intertan nail Integrated interlocking lag screw 90 mm lag screw and 85 mm compression screw 27.5 mm distal interlocking pole Estimated Blood Loss (mL): 100 Procedure in detail: Patient was met in the preoperative holding area where the site and side of surgery were marked and the. Informed consent was reviewed with the patient including the risks and benefits of surgery risks include incomplete relief of symptoms, need for future surgery, iatrogenic injury, DVT, PE, infection, , etc.. Patient demonstrates understanding of the risks and benefits of proceeding with a right hip cephalomedullary nail and wishes to proceed. Patient was then brought back in the operating room where she is induced under general anesthesia she was then transferred onto the Laquey table. Her right foot was then well padded and placed in Laquey table boots. The left hip was then placed in the well leg horton. This point fluoroscopy was brought in for reduction of the intertrochanteric fracture. Fracture was able to be improved in its alignment however there was still gapping at the fracture site specifically near the calcar. The right hip was then prepped and draped normal sterile fashion. A surgical time-out was performed verifying the site and start his surgery as well as the name of the patient. At this point a stab incision was made over the lateral aspect of the femur and a bone hook was then placed over the medial aspect of the calcar to help reduce the fracture. Several adjustments were made with rotation and traction as well as bone hook to improve the alignment of the fracture. Next a 3 cm long incision made was made proximal to the femur in line with the long axis to the femur. Neil scissors were then used to split the fascia. A 30 tip wire was then placed at the tip of the greater trochanter and drill to enter the canal. Its position was verified on AP and lateral views. The opening Reamer was then used over the threaded guide tip wire down to the level of the lesser troch. We then selected a 18 cm x 10 mm inter begum nail. This was placed but start to hang up distally as she had quite tight canals. The short cephalomedullary nail was then removed a ball-tipped guidewire was then placed inside the femur and a 11.5 mm flexible Reamer was then passed over the guidewire past the isthmus of the femur. The Reamer and the guide tip guidewire were then removed and the inter begum nail was able to be placed. Fluoroscopy was used for positioning for depth the as well as anteversion of the nail. The aiming guide was used a skin incision was made in the skin using a 10. Blade and a threaded tip guidewire was then drilled into the head under fluoroscopic guidance. It was centered centered on the AP and lateral views. Depth was measured at 90 mm we then drilled for the corresponding compression screw which is 85 mm in depth the antirotation bar was then placed and the compression screw was then drilled for to 90 mm of depth verifying on fluoroscopic images. Next the 90 mm compression screw was placed followed by the 85 mm compression screw which was compressed several mm. We then used the guide to place the distal interlocking bolt which was measured at 27.5 mm of depth and the bolt was then placed. The jig was then removed and final fluoroscopic images were obtained. The incisions were thoroughly irrigated with normal saline incisions were closed with 2-0 Vicryl in the subcutaneous layer followed by lillian on skin followed by Aquacel dressings. Complications: none Post-operative Condition: stable Disposition: PACU Plan for aftercare: 24 hours post-op abx, WBAT RLE, Lovenox for DVT prophyalxis
--- NOTE | 2020-04-18 11:35 | P.PN_ITS ---
Subjective Subjective Interval history: Patient is a 74-year-old female who was admitted to the hospital following a fall. She suffered a right intertrochanteric fracture. The patient was down on the ground for a trial 48 hours. It she presented with acute on chronic renal failure, rhabdomyolysis, and a right hip fracture. Patient is known hypertension hyperlipidemia and type 2 diabetes. She continues to have significant pain with minimal movement. However she denies any shortness of breath or chest pain. Patient was noted to be anemic last evening and arrangements were made for her to transfuse 1 unit of packed RBCs in anticipation for surgery today. Exam Vital Signs (past 8 hours): - 04/18/20 04:30 04/18/20 05:27 04/18/20 07:25 Temperature 98.6 F 99 F Pulse Rate 81 82 Respiratory Rate 18 14 Blood Pressure 132/65 150/69 H Pulse Oximetry 98 98 99 04/18/20 11:17 04/18/20 11:23 04/18/20 11:27 Temperature 98.3 F 99.2 F 97.9 F Pulse Rate 72 71 68 Respiratory Rate 11 L 15 11 L Blood Pressure 112/51 L 117/59 L 143/66 H Pulse Oximetry 92 88 L 99 Oxygen Delivery Method Room Air Oxygen Flow Rate 2 Narrative Exam Narrative: Elderly female somewhat uncomfortable but in no obvious distress Lungs: Clear to auscultation Cardiac exam: Regular rate and rhythm normal S1-S2 with a 2/6 systolic ejection murmur Abdomen: Soft nontender nondistended Extremities: Right groin tender to palpation, swollen, bruising along the right anterior thigh and pannus Objective Labs Result Diagrams: 04/18/20 04:40 04/18/20 04:40 Labs: Laboratory Results - last 24 hr 04/17/20 04/17/20 04/17/20 03:15 12:30 12:30 WBC RBC Hgb Hct MCV MCH MCHC RDW Plt Count Neut % (Auto) Lymph % (Auto) [place] % (Auto) Eos % (Auto) Baso % (Auto) Neut # (Auto) Lymph # (Auto) [place] # (Auto) Eos # (Auto) Baso # (Auto) Percent Retic Sodium 133 L Potassium 4.0 Chloride 105 Carbon Dioxide 25 BUN 31 H Creatinine 1.41 H Estimated GFR 36.3 L BUN/Creatinine Ratio 22.0 Glucose 128 H Calcium 8.8 Iron 21 L TIBC 258 L % Saturation 8 L Transferrin 211 Ferritin Lactate Dehydrogenase Total Creatine Kinase 2814 H D Troponin I Vitamin B12 Folate Blood Type Antibody Screen Crossmatch 04/17/20 04/18/20 04/18/20 12:50 04:40 04:40 WBC 8.1 4.3 L RBC 2.45 L 2.13 L Hgb 8.2 L 7.1 L Hct 24.4 L 21.4 L MCV 99.6 100.0 MCH 33.3 33.1 MCHC 33.4 33.1 RDW 14.6 15.2 H Plt Count 172 138 L Neut % (Auto) 75.2 H 78.6 H Lymph % (Auto) 13.8 L 14.5 L [place] % (Auto) 10.5 5.9 Eos % (Auto) 0.1 L 0.6 L Baso % (Auto) 0.4 0.4 Neut # (Auto) 6100 3400 Lymph # (Auto) 1100 600 L [place] # (Auto) 800 300 Eos # (Auto) 0 0 Baso # (Auto) 0 0 Percent Retic Sodium 134 L Potassium 4.0 Chloride 110 H Carbon Dioxide 25 BUN 27 H Creatinine 1.47 H Estimated GFR 34.6 L BUN/Creatinine Ratio 18.4 Glucose 99 Calcium 8.3 L Iron TIBC % Saturation Transferrin Ferritin Lactate Dehydrogenase Total Creatine Kinase Troponin I 0.019 Vitamin B12 Folate Blood Type Antibody Screen Crossmatch 04/18/20 04/18/20 04/18/20 04:40 04:40 04:40 WBC RBC Hgb Hct MCV MCH MCHC RDW Plt Count Neut % (Auto) Lymph % (Auto) [place] % (Auto) Eos % (Auto) Baso % (Auto) Neut # (Auto) Lymph # (Auto) [place] # (Auto) Eos # (Auto) Baso # (Auto) Percent Retic 2.2 Sodium Potassium Chloride Carbon Dioxide BUN Creatinine Estimated GFR BUN/Creatinine Ratio Glucose Calcium Iron TIBC % Saturation Transferrin Ferritin Lactate Dehydrogenase Total Creatine Kinase 2086 H Troponin I Vitamin B12 Folate Blood Type A Positive Antibody Screen Negative Crossmatch See Detail 04/18/20 04/18/20 04/18/20 04:40 04:40 04:40 WBC RBC Hgb Hct MCV MCH MCHC RDW Plt Count Neut % (Auto) Lymph % (Auto) [place] % (Auto) Eos % (Auto) Baso % (Auto) Neut # (Auto) Lymph # (Auto) [place] # (Auto) Eos # (Auto) Baso # (Auto) Percent Retic Sodium Potassium Chloride Carbon Dioxide BUN Creatinine Estimated GFR BUN/Creatinine Ratio Glucose Calcium Iron TIBC % Saturation Transferrin Ferritin 1540 H Lactate Dehydrogenase 2024 H Total Creatine Kinase Troponin I Vitamin B12 920 Folate Blood Type Antibody Screen Crossmatch 04/18/20 04:40 WBC RBC Hgb Hct MCV MCH MCHC RDW Plt Count Neut % (Auto) Lymph % (Auto) [place] % (Auto) Eos % (Auto) Baso % (Auto) Neut # (Auto) Lymph # (Auto) [place] # (Auto) Eos # (Auto) Baso # (Auto) Percent Retic Sodium Potassium Chloride Carbon Dioxide BUN Creatinine Estimated GFR BUN/Creatinine Ratio Glucose Calcium Iron TIBC % Saturation Transferrin Ferritin Lactate Dehydrogenase Total Creatine Kinase Troponin I Vitamin B12 Folate 8.0 Blood Type Antibody Screen Crossmatch [facility] Medical History Benign essential HTN GERD (gastroesophageal reflux disease) Hiatal hernia Hyperlipidemia associated with type 2 diabetes mellitus Osteopenia Psoriasis Family History (Updated 04/17/20 @ 06:00 by CANDICE Novak-) Mother Breast cancer Family/Other Breast cancer Social History household members: none Smoking Status: Never smoker Assessment & Plan Assessment & Plan narrative: Impression 1. 74-year-old female admitted to the hospital with a right intertrochanteric fracture following a fall -patient likely has underlying osteoporosis contributing to her fracture -she is status post cephalic medullary nail -but will initiate treatment for osteoporosis postoperatively 2. Hypertension -continue benazepril and metoprolol 3. Type 2 diabetes -patient previously on metformin -CONTINUE TO MONITOR BLOOD SUGAR -will initiate corrective dose insulin as appropriate -defer basal insulin at this time 4. Hyperlipidemia -HOLD STATIN UNTIL RHABDOMYOLYSIS HAS RESOLVED 5. Rhabdomyolysis -IV fluids have -continue to monitor CPK 5. Chronic renal failure -will avoid nephrotoxic agent -continue to hold Lasix -will follow-up daily Continue PT and OT DVT prophylaxis per Orthopedic surgery
--- NOTE | 2020-04-18 12:18 | PT-IP ANOTE ---
Received orders and reviewed chart. Pt just arrived back to AC unit s/p CM nail for right IT fracture. Pt is not yet alert enough to participate with PT and last Hgb/Hct was 7.1/21.4. Will check on pt 12/21 AM for PT evaluation.
[2020-04-18] MEDS: LACTATED RINGERS 1,000 ML 75 ML IV (12:39)
[2020-04-18] MEDS: SODIUM CHLORIDE 0.9% FLUSH 10 ML IV ×2 (12:39→21:18)
--- NOTE | 2020-04-18 12:51 | PC.NURSE ---
Patient back from surgery, VSS, on RA. Feels groggy but denies pain and awakes easily to voice. 2 aquacel dressings to right hip intact. Mathis remains in place draining clear yellow urine. IV fluids started as ordered. Patient received 1 unit PRBC in surgery per report. Dr. Gleason ordering repeat CBC and order to transfuse second unit if hg. less than 8. Will follow results. Patient tolerating ice chips and tea at this time. Call light within reach, patient's daughter at bedside.
[2020-04-18 12:53] LABS: Add Manual Diff / Slide Review NO; Basophils Absolute Auto 0 /uL (0-100); Basophils Percent Auto 0.1 % (0-2); Eosinophils Absolute Auto 0 /uL (0-450); Eosinophils Percent Auto 0.5 % (2-4); Hematocrit 31.1 % (36-46); Hemoglobin 10.3 g/dL (12.0-16.0); Lymphocytes Absolute Auto 400 /uL (1100-4500); Lymphocytes Percent Auto 6.6 % (25-40); Mean Corpuscular HGB Conc 33.1 % (30-36); Mean Corpuscular Hemoglobin 32.6 PG (26-34); Mean Corpuscular Volume 98.4 fL (80-100); Monocytes Absolute Auto 400 /uL (0-900); Monocytes Percent Auto 6.3 % (3-14); Neutrophils Absolute Auto 5200 /uL (1500-7000); Neutrophils Percent Auto 86.5 % (50-75); Platelet Count 122 X10^3/uL (150-400); Red Blood Cell Count 3.16 X10^6/uL (4.0-5.2); Red Cell Distribution Width 16.5 % (11.6-14.8)
[2020-04-18 13:04] LABS: Hemoglobin A1C% w Est Avg Glu 5.2 % (4.0-6.0)
[2020-04-18] MEDS: BENAZEPRIL 20 MG TABLET PO ×2 (13:41→21:17)
[2020-04-18] MEDS: METOPROLOL ER 25 MG TABLET PO (13:41)
--- NOTE | 2020-04-18 14:02 | PC.NURSE ---
RT took in Incentive spirometer and did teaching. Currently at patient's bedside. Patient sipping tea and more awake. Continue to monitor.
--- NOTE | 2020-04-18 16:02 | PC.NURSE ---
Addendum entered by Zena Tam R.N. 04/18/20 22:09: Pt states was sleeping, but woke with a startle and a jerk which caused pain in right hip. Pt requests assistance with repositioning. BL scd's removed as pt reports feels may feel more comfortable without these on. Pt agreeable to ice to right hip and this was placed. Also able to assist with turning slightly onto right side and pillow behind back to support. Pillow also between legs. No compromise in neurovascular status this shift. Addendum entered by Zena Tam R.N. 04/18/20 16:52: Pt now awake, alert, conversant. Declines ice to right hip, I'm not a fan of ice. BL calf scd's are in place. Palpable pedal pulses BL. Pt admits to full sensation to BL LE's. Aquacel dressing x 2 to right hip intact. Edema and bruising present. Pt states feels as though edema to fingers is improved over last evening. Mathis with clear, yellow urine. Pt denies pain at rest. Encouraged I.S. use and pt able to use to 500. Will reinforce and encourage use. Denies nausea. Will offer turning/repositioning following evening meal. Original Note: Pt in bed with eyes closed resting quietly and soundly. Room air 92% per continuous monitor.
[2020-04-18] MEDS: DOCUSATE 100 MG CAPSULE PO (21:17)
[2020-04-18] MEDS: ATORVASTATIN 20 MG TABLET PO (21:17)
[2020-04-18] MEDS: SENNOSIDES 8.6 MG TABLET 17.2 MG PO (21:17)
[2020-04-19] VITALS (9 sets, daily range): BP systolic 125–172; BP diastolic 62–81; PULSE 66–90; RESP 13–18; TEMP 36.6–37.2; O2SAT 96–99
--- NOTE | 2020-04-19 01:04 | PC.NURSE ---
Circulation and sensation intact on R leg, currently weak due to pain w/movement. Dressing intact w/small amount of shadow drainage on both dressing sites. Bruising and swelling at R thigh. Ice in place. Pt has no c/o of pain at this time. Pt reports not remembering her surgery until reminded.
[2020-04-19] MEDS: LACTATED RINGERS 1,000 ML 75 ML IV (01:49)
[2020-04-19 05:09] LABS: Add Manual Diff / Slide Review NO; Basophils Absolute Auto 0 /uL (0-100); Basophils Percent Auto 0.1 % (0-2); Eosinophils Absolute Auto 0 /uL (0-450); Hemoglobin 8.1 g/dL (12.0-16.0); Lymphocytes Absolute Auto 200 /uL (1100-4500); Mean Corpuscular HGB Conc 33.9 % (30-36); Mean Corpuscular Hemoglobin 32.8 PG (26-34); Mean Corpuscular Volume 96.9 fL (80-100); Monocytes Absolute Auto 500 /uL (0-900); Monocytes Percent Auto 7.5 % (3-14); Neutrophils Absolute Auto 5500 /uL (1500-7000); Neutrophils Percent Auto 88.4 % (50-75); Platelet Count 136 X10^3/uL (150-400); Red Blood Cell Count 2.48 X10^6/uL (4.0-5.2); Red Cell Distribution Width 16.4 % (11.6-14.8); White Blood Cell Count 6.3 X10^3/uL (4.5-11.0)
[2020-04-19 05:13] LABS: BUN Creatinine Ratio 17.2 (6-22); Blood Urea Nitrogen 23 mg/dL (7-17); Calcium 8.2 mg/dL (8.4-10.2); Carbon Dioxide 22 mmol/L (22-32); Chloride 109 mmol/L (98-107); Estimated Glomerular Filt Rate 38.5 mL/min (>60); Glucose 206 mg/dL (80-110); HEMOLYSIS < 15 (0-50); Potassium 4.1 mmol/L (3.4-5.1); Sodium 133 mmol/L (137-145)
[2020-04-19 05:23] LABS: NT-proBNP (BNP-Adult 18+) 2530 pg/mL (<450)
[2020-04-19 06:38] LABS: Haptoglobin 79 mg/dL (42-346)
--- NOTE | 2020-04-19 08:01 | PM.PNPO.1 ---
Subjective Subjective Date Patient Seen: 04/19/20 Time Patient Seen: 08:01 Interval history: Patient's pain is mild. Denies fever or chills. No nausea or vomiting. Patient has not yet worked with physical therapy. Patient's daughter will be home to assist her. Exam Vital Signs (past 8 hours): - 04/19/20 03:00 04/19/20 07:42 Temperature 98.2 F Pulse Rate 86 82 Respiratory Rate 15 18 Blood Pressure 125/62 Pulse Oximetry 96 98 Oxygen Delivery Method Room Air Oxygen Flow Rate 0 Narrative Exam Narrative: 74-year-old female resting comfortably in bed in no apparent distress. Ecchymosis present about the right hip. The dressing is clean, dry and intact. Motor function is intact distal right lower extremity. Sensation grossly intact to light touch bilateral lower extremities. Both legs are warm and dry. Objective Labs Result Diagrams: 04/19/20 04:40 04/19/20 04:40 Labs: Laboratory Results - last 24 hr 04/18/20 04/18/20 04/18/20 04:40 04:40 04:40 WBC RBC Hgb Hct MCV MCH MCHC RDW Plt Count Neut % (Auto) Lymph % (Auto) [place] % (Auto) Eos % (Auto) Baso % (Auto) Neut # (Auto) Lymph # (Auto) [place] # (Auto) Eos # (Auto) Baso # (Auto) Haptoglobin 79 Sodium Potassium Chloride Carbon Dioxide BUN Creatinine Estimated GFR BUN/Creatinine Ratio Glucose Hemoglobin A1c Calcium Ferritin 1540 H NT-Pro-B Natriuret Pep Folate Blood Type A Positive Antibody Screen Negative Crossmatch See Detail 04/18/20 04/18/20 04/18/20 04:40 12:45 12:45 WBC 6.0 RBC 3.16 L Hgb 10.3 L Hct 31.1 L MCV 98.4 MCH 32.6 MCHC 33.1 RDW 16.5 H Plt Count 122 L Neut % (Auto) 86.5 H Lymph % (Auto) 6.6 L [place] % (Auto) 6.3 Eos % (Auto) 0.5 L Baso % (Auto) 0.1 Neut # (Auto) 5200 Lymph # (Auto) 400 L [place] # (Auto) 400 Eos # (Auto) 0 Baso # (Auto) 0 Haptoglobin Sodium Potassium Chloride Carbon Dioxide BUN Creatinine Estimated GFR BUN/Creatinine Ratio Glucose Hemoglobin A1c 5.2 Calcium Ferritin NT-Pro-B Natriuret Pep Folate 8.0 Blood Type Antibody Screen Crossmatch 04/19/20 04/19/20 04:40 04:40 WBC 6.3 RBC 2.48 L Hgb 8.1 L Hct 24.0 L MCV 96.9 MCH 32.8 MCHC 33.9 RDW 16.4 H Plt Count 136 L Neut % (Auto) 88.4 H Lymph % (Auto) 4.0 L [place] % (Auto) 7.5 Eos % (Auto) 0.0 L Baso % (Auto) 0.1 Neut # (Auto) 5500 Lymph # (Auto) 200 L [place] # (Auto) 500 Eos # (Auto) 0 Baso # (Auto) 0 Haptoglobin Sodium 133 L Potassium 4.1 Chloride 109 H Carbon Dioxide 22 BUN 23 H Creatinine 1.34 H Estimated GFR 38.5 L BUN/Creatinine Ratio 17.2 Glucose 206 H D Hemoglobin A1c Calcium 8.2 L Ferritin NT-Pro-B Natriuret Pep 2530 H Folate Blood Type Antibody Screen Crossmatch [facility] Medical History Benign essential HTN GERD (gastroesophageal reflux disease) Hiatal hernia Hyperlipidemia associated with type 2 diabetes mellitus Osteopenia Psoriasis Family History Mother Breast cancer Family/Other Breast cancer Social History household members: none Smoking Status: Never smoker Assessment & Plan Post-op Postoperative Procedures: Procedures Operation Date: 04/18/20 09:45 Actual Procedures Side Surgeon p Intramedullary Nailing Femur Right Carlin Loving MD postop day 1. Patient progressing as expected. Weight-bearing as tolerated right lower extremity. Lovenox for DVT prophylaxis.
[2020-04-19] MEDS: METOPROLOL ER 25 MG TABLET PO (08:22)
[2020-04-19] MEDS: DOCUSATE 100 MG CAPSULE PO ×2 (08:22→20:07)
[2020-04-19] MEDS: BENAZEPRIL 20 MG TABLET PO ×2 (08:22→20:07)
[2020-04-19] MEDS: HYDROCODONE/ACET 5/325 TABLET 2 TAB PO ×4 (08:23→22:30)
[2020-04-19] MEDS: SODIUM CHLORIDE 0.9% FLUSH 10 ML IV ×2 (08:24→20:08)
--- NOTE | 2020-04-19 10:35 | PT.IIE ---
Current Diagnoses Displaced intertrochanteric fracture of right femur, initial encounter for closed fracture (04/17/20) Surgery Performed Operation Date: 04/18/20 09:45 Actual Procedures p Intramedullary Nailing Femur(Right) - Carlin Loving MD Medical History (Last Reviewed 04/19/20 @ 08:02 by Shivam Hamilton PA-C) Benign essential HTN GERD (gastroesophageal reflux disease) Hiatal hernia Hyperlipidemia associated with type 2 diabetes mellitus Osteopenia Psoriasis Physical Therapy Inpatient Evaluation/Re-Eval M1 PT/OT-IP Prior Functional Status Start: 04/19/20 08:28 Freq: NEEDED Status: Active Protocol: Document 04/19/20 10:30 AW (Rec: 04/19/20 11:57 AW [id number]) Medical Review Prior Functional Status Medical History Reviewed Yes Communication WNL. Pt is an effective verbal communicator. Mobility and Gait Pt is independent without assistive device and without meaningful limit for ambulation. She has an 8 month old puppy she takes on frequent walks. Activities of Daily Living and IADL's Independent with all I/ADL's. 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 Social History Household Members none Living Arrangements House Number of Floors (Floors) One Floor Number of Stairs To Enter/Railing? 2 NENO with no railing at the front of the house. Home Environment Standard Height Toilet,Tub/ Shower Home Equipment Straight Cane,Hand Held Shower ,Long Handled Shoe Horn, Control Operator,Grab Bars In Shower Employment Status Retired Additional Social History Comment Pt lives alone in [place]. She has three daughters who live in [place], [place], and [place]. One of them, Devyn, is a teacher who is now on winter break and will be able to stay with the patient through the break time. Other daughters will rotate in to assist as needed. M2 PT-IP Current Condition Start: 04/19/20 08:28 Freq: NEEDED Status: Active Protocol: Document 04/19/20 10:30 AW (Rec: 04/19/20 12:01 AW [id number]) Physical Therapy Current Condition Current Condition Evaluation Date 04/19/20 Treatment Diagnosis R IT fracture s/p IM nail; difficulty in walking Weight Bearing Status Weight Bearing Status Weight Bear as Tolerated M3 PT-IP Subjective Start: 04/19/20 08:28 Freq: NEEDED Status: Active Protocol: Document 04/19/20 10:30 AW (Rec: 04/19/20 12:01 AW [id number]) Subjective Physical Therapy Visit Type Type Initial Evaluation Visit Start Time 09:48 Visit Stop Time 10:30 Total Visit Minutes 42 Number of JOB TRAINER Visits 0 Physical Therapy Visit Comments Patient Comments Pt is willing to participate with PT Patient Goals Pt hopes to avoid SNF and go home with her daughters assisting. Therapy Pain Assessment Pain When Pain Assessed At Rest Pain Present Pain Present Pain Reported Location Right Leg Intensity 4 Scale Used 4/10 at rest; sharp and 10/10 with movement Description Sharp,Spasm Pain Behaviors Facial Grimacing,Guarding, Wincing Pain Management Techniques Apply Cold,Timing of Activity with Medications M4 PT-IP Mobility and Gait Start: 04/19/20 08:28 Freq: NEEDED Status: Active Protocol: Document 04/19/20 10:30 AW (Rec: 04/19/20 12:07 AW [id number]) PT-Bed Mobility Assessment Supine to Sit Supine to Sit Minimal Assistance,1 Person Assistance,Bedrails Scooting Scooting to Edge of Bed Moderate Assistance PT-Transfer Assessment Sit to and From Stand Sit to and from Stand Minimal Assistance,1 Person Assistance,Use of Upper Extremities Equipment Transfer Assistive Device Gait Belt,Front Wheeled Walker Orthotic/Prosthetic Devices or Brace: No Transfers Transfer Destination Chair Transfer Technique pt ambulated with FWW Transfer Ability Level of Assist Minimal Assistance,1 Person Assistance,Use of Upper Extremities Comments Mobility Comments Pt was reclined in the bed as PT arrived. Using gait belt as strap to lift her right leg, she completed supine to sit min A x 1, exiting the bed to her right side. BP was 138/87 HR 84 sitting EOB. Pt required mod assist to scoot toward EOB and then stood from the bed in lowest position min A x 1. Pt is 4'10 and needs assist to get her feet close to the floor. Pt was able to weight shift using heavy UE weightbearing on the walker before stepping away from the bed. She ambulated 10 feet in the room min A x 1 before transferring to the bedside chair min A x 1 and cues for RLE placement to ease the transition. Pt was positioned on th chair with call light and all needs in reach. Gait Assessment Gait Gait Assistance Required: Minimum Assistance,1 Person Assist Distance (Feet) 10 Able to Maintain Weight Bearing Status Yes During Gait Assistive Devices Assistive Device Gait Belt,Front Wheeled Walker Orthotic/Prosthetic Devices or Brace: No Gait Deviations General Gait Pattern Antalgic,Decreased Stride Length,Decreased Feet Clearance,Flexed Trunk,Step-to Gait Factors Limiting Gait Function Factors Limiting Gait Function Decreased Activity Tolerance, Decreased Sensation,Decreased Strength,Limited Range of Motion,Pain,Poor Balance,Poor Safety Awareness Comments Gait Comments Gait speed was exceedingly slow but pt gained confidence in her weightbearing as distance progressed. See mobility comments for details. Stair Climbing Assessment Comments Stair Climbing Comments Not assessed. Pt will need to clear stairs prior to discharge. PT-Balance Assessment Sitting Balance and Reactions Static Sitting Balance Ability Good Dynamic Sitting Balance Ability Good Standing Balance and Reactions Static Standing Balance Ability Good Dynamic Standing Balance Ability Fair Device Used FWW M5 PT-IP Objective Assessments Start: 04/19/20 08:28 Freq: NEEDED Status: Active Protocol: Document 04/19/20 10:30 AW (Rec: 04/19/20 12:08 AW [id number]) Orientation Orientation/Cognition Level of Alertness Alert Orientation Name,Age,Birthday,Month,Date, Year,Day of Week,Place, Situation Safety Awareness Decreased Safety Awareness Memory Description No Deficits Noted Gross Range of Motion Lower Extremity ROM Assessment Right Impaired Strength Lower Extremity Strength Assessment Right Impaired Hip 3+/5 Knee 4-/5 Comments Strength Comments LLE grossly 4+/5 Coordination Assessment Gross Coordination Gross Coordination WNL Sensation Assessment Sensation Gross Sensation WNL Muscle Tone Muscle Tone WNL Yes M6 PT-IP Treatment Start: 04/19/20 08:28 Freq: NEEDED Status: Active Protocol: Document 04/19/20 10:30 AW (Rec: 04/19/20 12:09 AW [id number]) Physical Therapy Treatment Exercises Exercises Ankle Pumps,Gluteal Sets Education Education Provided Weight Bearing Status,Safety Other Treatments Other Treatment Performed Provided education on role of PT, plan of care, weightbearing status, and rationale for use of an assistive device. M7 PT-IP Assessment and Plan Start: 04/19/20 08:28 Freq: NEEDED Status: Active Protocol: Document 04/19/20 10:30 AW (Rec: 04/19/20 12:15 AW [id number]) PT Summary Assessment and Plan Potential Rehabilitation Potential Good Status of Condition at Evaluation Stable Summary Impairments Pain,ROM,Strength,Balance, Sensation,Bed Mobility, Transfers,Gait,Activity Tolerance Assessment Summary Hollie is a 74 yo woman seen for PT evaluation on POD1 following IM nail for right intertrochanteric femur fracture. She fell at home and was down for 48 hours before being able to call for assist. She is independent in all regards at baseline. She required min to mod assist for all mobility on evaluation. Pt hopes to avoid SNF rehab and prefers to discharge home with her daughters assisting if possible. Depending on progress, this may be an appropriate plan with the addition of HH PT. Pt must progress her ambulation distance, activity tolerance, and stair navigation prior to discharge. Caregiver training with pt's daughter will be arranged either for PM session or tomorrow morning. If pt does not progress, will need to consider SNF rehab. Goals Bed Mobility Goal Standby Assistance Transfer Goal Standby Assistance,Front Wheeled Walker Gait Goal Standby Assistance,Front Wheel Walker Gait Distance 100 Other Goals - up/down 2 steps with cane in one hand, JACKSCREW MAN other side Days to Meet Goals 5 Frequency of Treatment Frequency Of Treatment Twice a Day Treatment Plan Physical Therapy Treatment Plan Bed Mobility Training,Transfer Training,Gait Training, Therapeutic Exercise,Balance Retraining,Post Op Education, Discharge Planning,Hot or Cold Pack,Neuromuscular Re-ed Other Recommendations and Next Treatment OT consult requested Focus Recommendations To Nursing Amount of Assist Needed 1 Person Assist Discharge Recommendations PT Discharge Recommendations Home with Assistance,Home Health,SNF Rehab Other Discharge Recommendations Home with assist and HH vs SNF depending on progress Equipment Needed for Home Before FWW Discharge Transportation Needs at Discharge Private Vehicle
[2020-04-19] MEDS: ASPIRIN EC 81 MG TABLET PO ×2 (10:54→20:07)
--- NOTE | 2020-04-19 13:05 | PT-IP ANOTE ---
Spoke with pt who indicated armaan Shepard would not be the one to participate in caregiver training as originally planned. Instead, armaan Kang will be present Sunday AM for training and will be staying with pt during the initial stretch at discharge if pt goes home. Advised pt to ask Pearl to be available between 0930 and 1200 tomorrow.
--- NOTE | 2020-04-19 13:36 | PT.IPTN ---
Current Diagnoses Displaced intertrochanteric fracture of right femur, initial encounter for closed fracture (04/17/20) Surgery Performed Operation Date: 04/18/20 09:45 Actual Procedures p Intramedullary Nailing Femur(Right) - Carlin Loving MD Physical Therapy Treatment Note M2 PT-IP Current Condition Start: 04/19/20 08:28 Freq: NEEDED Status: Active Protocol: Document 04/19/20 10:30 AW (Rec: 04/19/20 12:01 AW [id number]) Physical Therapy Current Condition Current Condition Evaluation Date 04/19/20 Treatment Diagnosis R IT fracture s/p IM nail; difficulty in walking Weight Bearing Status Weight Bearing Status Weight Bear as Tolerated M3 PT-IP Subjective Start: 04/19/20 08:28 Freq: NEEDED Status: Active Protocol: Document 04/19/20 13:05 CLB (Rec: 04/19/20 14:08 CLB [id number]) Subjective Physical Therapy Visit Type Type Treatment Note Visit Start Time 13:05 Visit Stop Time 13:36 Total Visit Minutes 31 Notes Pt daughter Radha will be in tomorrow morning for CG training. Number of DENTAL NURSE Visits 1 Physical Therapy Visit Comments Patient Comments Pt is willing to participate with PT Patient Goals Pt hopes to avoid SNF and go home with her daughters assisting. Therapy Pain Assessment Pain When Pain Assessed During Mobility Pain Present Pain Present Pain Reported Location Right Leg Intensity 5 Pain Behaviors Facial Grimacing,Holding Area, Wincing Pain Management Techniques Apply Cold,Timing of Activity with Medications M4 PT-IP Mobility and Gait Start: 04/19/20 08:28 Freq: NEEDED Status: Active Protocol: Document 04/19/20 13:05 CLB (Rec: 04/19/20 14:08 CLB [id number]) PT-Transfer Assessment Sit to and From Stand Sit to and from Stand Contact Guard Assistance,1 Person Assistance,Use of Upper Extremities Equipment Transfer Assistive Device Gait Belt,Front Wheeled Walker Orthotic/Prosthetic Devices or Brace: No Transfers Transfer Destination Chair Transfer Technique pt ambulated with FWW Transfer Ability Level of Assist Contact Guard Assistance,1 Person Assistance,Use of Upper Extremities Comments Mobility Comments Pt in chair upon arrival. Pt able to scoot forward in chair SBA, pt then stood from chair with use of UE's CGA. Pt ambulated ~20ft w/FWW/CGA with small step through gait pattern with cues for posture and relaxing shoulder. Pt also required cues to stay inside walker not pushing it too far ahead. Pt able to show good follow through with cues. Pt sat in chair CGA and required Mod A to scoot back in chair with use of draw sheet. Pt performed QS and ankle pumps. Left pt in chair with alll needs within reach and ice pack on right hip. Informed RN of pt progress with mobility. Gait Assessment Gait Gait Assistance Required: Contact Guard Assist,1 Person Assist Distance (Feet) 20 Able to Maintain Weight Bearing Status Yes During Gait Assistive Devices Assistive Device Gait Belt,Front Wheeled Walker Orthotic/Prosthetic Devices or Brace: No Gait Deviations General Gait Pattern Antalgic,Decreased Stride Length,Decreased Feet Clearance,Flexed Trunk Factors Limiting Gait Function Factors Limiting Gait Function Decreased Activity Tolerance, Decreased Sensation,Decreased Strength,Limited Range of Motion,Pain,Poor Balance,Poor Safety Awareness Comments Gait Comments Pt continues to ambulate very slowly with small step through gait pattern and progressing distance to ~20ft. See mobility for further comments. Stair Climbing Assessment Comments Stair Climbing Comments Not assessed. Pt will need to clear stairs prior to discharge. PT-Balance Assessment Sitting Balance and Reactions Static Sitting Balance Ability Good Dynamic Sitting Balance Ability Good Standing Balance and Reactions Static Standing Balance Ability Good Dynamic Standing Balance Ability Fair Device Used FWW M5 PT-IP Objective Assessments Start: 04/19/20 08:28 Freq: NEEDED Status: Active Protocol: Document 04/19/20 10:30 AW (Rec: 04/19/20 12:08 AW [id number]) Orientation Orientation/Cognition Level of Alertness Alert Orientation Name,Age,Birthday,Month,Date, Year,Day of Week,Place, Situation Safety Awareness Decreased Safety Awareness Memory Description No Deficits Noted Gross Range of Motion Lower Extremity ROM Assessment Right Impaired Strength Lower Extremity Strength Assessment Right Impaired Hip 3+/5 Knee 4-/5 Comments Strength Comments LLE grossly 4+/5 Coordination Assessment Gross Coordination Gross Coordination WNL Sensation Assessment Sensation Gross Sensation WNL Muscle Tone Muscle Tone WNL Yes M6 PT-IP Treatment Start: 04/19/20 08:28 Freq: NEEDED Status: Active Protocol: Document 04/19/20 13:05 CLB (Rec: 04/19/20 14:08 CLB [id number]) Physical Therapy Treatment Exercises Exercises Ankle Pumps,Gluteal Sets Education Education Provided Weight Bearing Status,Safety Other Treatments Other Treatment Performed WB status M7 PT-IP Assessment and Plan Start: 04/19/20 08:28 Freq: NEEDED Status: Active Protocol: Document 04/19/20 13:05 CLB (Rec: 04/19/20 14:08 CLB [id number]) PT Summary Assessment and Plan Potential Rehabilitation Potential Good Status of Condition at Evaluation Stable Summary Impairments Pain,ROM,Strength,Balance, Sensation,Bed Mobility, Transfers,Gait,Activity Tolerance Assessment Summary Pt improving with mobility able to perform sit<>stand CGA and increase ambulation to ~ 20ft w/FWW/CGA using small step through gait pattern. Pt continues to require increased time for gait as pt moves slowly and carefully. Pt's daughter Radha will is scheduled for CG training in the morning, pt will require climbing two steps with cane in one hand and FIELD COLLECTOR in other before d/c home. If pt progresses with mobility pt may be able to d/c home with assist of daughter and HH PT. If pt does not progress, will need to consider SNF rehab. Goals Bed Mobility Goal Standby Assistance Transfer Goal Standby Assistance,Front Wheeled Walker Gait Goal Standby Assistance,Front Wheel Walker Gait Distance 100 Other Goals - up/down 2 steps with cane in one hand, FIELD COLLECTOR other side Days to Meet Goals 5 Frequency of Treatment Frequency Of Treatment Twice a Day Treatment Plan Physical Therapy Treatment Plan Bed Mobility Training,Transfer Training,Gait Training, Therapeutic Exercise,Balance Retraining,Post Op Education, Discharge Planning,Hot or Cold Pack,Neuromuscular Re-ed Other Recommendations and Next Treatment CG training with daughter, bed Focus mobility, transfers, sit- stand, gait and stairs if able . Recommendations To Nursing Amount of Assist Needed 1 Person Assist Discharge Recommendations PT Discharge Recommendations Home with Assistance,Home Health,SNF Rehab Other Discharge Recommendations Home with assist and HH vs SNF depending on progress Equipment Needed for Home Before FWW Discharge Transportation Needs at Discharge Private Vehicle
--- NOTE | 2020-04-19 14:20 | OT.IP.EVAL ---
Current Diagnoses Displaced intertrochanteric fracture of right femur, initial encounter for closed fracture (04/17/20) Surgery Performed Operation Date: 04/18/20 09:45 Actual Procedures p Intramedullary Nailing Femur(Right) - Carlin Loving MD Past Medical History (Last Reviewed 04/19/20 @ 08:02 by Shivam Hamilton PA-C) Benign essential HTN GERD (gastroesophageal reflux disease) Hiatal hernia Hyperlipidemia associated with type 2 diabetes mellitus Osteopenia Psoriasis Occupational Therapy Inpatient Evaluation/Re-Eval M1 PT/OT-IP Prior Functional Status Start: 04/19/20 16:18 Freq: NEEDED Status: Active Protocol: Document 04/19/20 13:50 [facility] (Rec: 04/19/20 16:36 [facility] [id number]) Medical Review Prior Functional Status Medical History Reviewed Yes Communication WNL. Pt is an effective verbal communicator. Mobility and Gait Pt is independent without assistive device and without meaningful limit for ambulation. She has an 8 month old puppy she takes on frequent walks. Activities of Daily Living and IADL's Independent with all I/ADL's. 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 Social History Household Members none Living Arrangements House Number of Floors (Floors) One Floor Number of Stairs To Enter/Railing? 2 NENO with no railing at the front of the house. Home Environment Standard Height Toilet,Tub/ Shower Home Equipment Straight Cane,Hand Held Shower ,Long Handled Shoe Horn, Property Management Coordinator,Grab Bars In Shower Employment Status Retired Additional Social History Comment Pt lives alone in [place]. She has three daughters who live in [place], [place], and [place]. One of them, Devyn, is a teacher who is now on winter break and will be able to stay with the patient through the break time. Other daughters will rotate in to assist as needed. M2 OT-IP Current Condition Start: 04/19/20 16:18 Freq: Status: Active Protocol: Document 04/19/20 13:50 [facility] (Rec: 04/19/20 16:36 [facility] [id number]) Occupational Therapy Current Condition Current Condition Evaluation Date 04/19/20 Treatment Diagnosis s/p Intramedullary Nailing right femur Diagnosis Onset Date 04/18/20 M3 OT- IP Subjective and Pain Start: 04/19/20 16:18 Freq: Status: Active Protocol: Document 04/19/20 13:50 [facility] (Rec: 04/19/20 16:36 [facility] [id number]) OT- Subjective Occupational Therapy Visit Type Type Initial Evaluation Visit Start Time 13:50 Visit Stop Time 14:20 Total Visit Minutes 30 Occupational Therapy Visit Comments Patient Comments Pt tired but agreed to get up for OT to wash up at the sink. Patient/Caregiver Goals TO go home. OT Pain Assessment Pain When Pain Assessed At Rest Pain Present Pain Present Denied Pain M4 OT- IP ADL's Start: 04/19/20 16:18 Freq: Status: Active Protocol: Document 04/19/20 13:50 [facility] (Rec: 04/19/20 16:36 [facility] [id number]) OT [id number] Comments OT Self-Feeding Comments NOt at meal time. OT ADL-Grooming General Evaluation Grooming Ability Standby Assistance Areas Needing Assistance Retrieving/Set-up of Grooming Items Comments OT Grooming Comments Standing at the sink with FWW. OT ADL-Oral Care General Eval Oral Care Ability Independent OT ADL-Dressing General Eval Lower Body Dressing Ability Maximum Assistance Areas Needing Assistance Socks OT ADL-Toileting General Evaluation Toileting Ability Moderate Assistance Comments OT Toileting Comments Mathis just taken out by the nurse. Pt attempted to try to have bowel movement with no success. Pt needing CGA for balance while leaning to wipe. Suggested a BSC for safety for able to hold onto the armrests when leaning over to wipe. Pt needing assist to help get brief over her right foot . Able to initiate use of activities leader to help garrick brief but at this time unable to lift her right foot up. Otherwise pt will need to have assist. OT ADL-Bathing Comments OT Bathing Comments NOt performed. M5 OT- IP IADL's Start: 04/19/20 16:18 Freq: Status: Active Protocol: Document 04/19/20 13:50 [facility] (Rec: 04/19/20 16:36 [facility] [id number]) OT-Instrumental Activities of Daily Living Home Safety Awareness Awareness of Need for Assistance at Home Good Awareness Ability to Problem Solve Emergency Able to Problem Solve Situations Medication Management Medication Management No Deficits Identified Money Management Money Management No Deficits Identified Meal Preparation Meal Preparation Comments At this time due to recent fall and sx , pt ezequiel need assist for all IADl needs. Dietary Internship Dietary Internship Comments At this time due to recent fall and sx , pt ezequiel need assist for all IADl needs. M6 OT- IP Functional Cognition Start: 04/19/20 16:18 Freq: Status: Active Protocol: Document 04/19/20 13:50 [facility] (Rec: 04/19/20 16:36 [facility] [id number]) Cognitive Factors Limiting Selfcare Function Cognitive Ability Level of Alertness Alert Patient Orientation Name,Age,Birthday,Month,Date, Year,Day of Week,Place, Situation Attention Span Ability Capable of Focused Attention, Capable of Sustained Attention Ability to Follow Commands Able to Follow Multi-Step Commands Memory Description No Deficits Noted Cognitive Comments Cognitive Assessment Comments At this time pt appears to be cognitively intact with no issues. OT- Vision and Hearing OT- Hearing Assessment OT- Hearing Assessment WFL M7 OT- IP Mobility and Balance Start: 04/19/20 16:18 Freq: Status: Active Protocol: Document 04/19/20 13:50 [facility] (Rec: 04/19/20 16:36 [facility] [id number]) OT- Bed Mobility Assessment Rolling Type of Rolling Roll to Right Level of Assistance Minimal Assistance Supine to Sit Supine to Sit Assist Moderate Assistance Sit to Supine Sit to Supine Assist Moderate Assistance OT-Transfer Assessment Sit to and From Stand Sit to and from Stand Minimal Assistance Transfers Transfer Ability Minimal Assistance Technique Transfer Destination Bed Transfer Technique Stand Step Pivot Devices Transfer Assistive Devices Gait Belt,Front Wheeled Walker Comments Mobility Comments Assist to RLE management for bed mobility. LISA for FWW for steadying and heavy use of pt 's arms on the FWW. Suggested best for pt to get a youth walker. OT- Balance Assessment Sitting Balance and Reactions Static Sitting Balance Ability Good Dynamic Sitting Balance Ability Poor Standing Balance and Reactions Static Standing Balance Ability Fair M8 OT- IP Objective Assessments Start: 04/19/20 16:18 Freq: Status: Active Protocol: Document 04/19/20 13:50 [facility] (Rec: 04/19/20 16:36 [facility] [id number]) OT Gross Range of Motion Upper Extremity Range of Motion Assessment Within Functional Limits OT Strength Upper Extremity Strength Assessment Within Functional Limits OT-Muscle Tone Assessment Muscle Tone WNL Yes M9 OT- IP Assessment and Plan Start: 04/19/20 16:18 Freq: Status: Active Protocol: Document 04/19/20 13:50 [facility] (Rec: 04/19/20 16:36 [facility] [id number]) OT Summary Assessment and Plan Potential Rehabilitation Potential Good Analytic Complexity at Evaluation Low Summary OT Impairments Pain,Balance,Functional Mobility,Grooming,Dressing, Toileting,Bathing,Toilet Transfers,Shower Transfers, Activity Tolerance Progress Towards Goals Slow Progress due to Pain,Slow Progress due to Medical Issues,Slow Progress due to Activity Tolerance Assessment Summary Pt low complexity and main barrier are steps, now needing extensive assist for ADL needs due to not able to left her right leg up to assist, in addition needing assist for RLE management for bed mobility needs. Pt would benefit from assist at home and her daughter plans on coming to stay with her to assist. IN addition pt will benefit from home health. Therefore pending caregiver training home with assist and home health versus skilled rehab. Goals Grooming Goal Independent Dressing Goal Minimal Assistance Toileting Goal Independent Bathing Goal Minimal Assistance Toilet Transfer Goal Independent Shower Transfer Goal Standby Assistance Patient/Caregiver Education Goal Demonstrate Post-Op Precautions,Caregiver Independent Assisting Patient Days to Meet Goals 15 Frequency of Treatment Frequency Of Treatment Once a Day Treatment Plan OT Treatment Plan ADL Training,Functional Mobility,Patient/Family Education,Discharge Planning Other Treatment Recommendations and Next LB dressing , caregiver Treatment Focus training Discharge Recommendations OT Discharge Recommendations Home with Assistance,Home Health,SNF Rehab Other Discharge Recommendations Pending caregiver training home with assist and home health versus skilled rehab Home Equipment Needs BSC, youth FWW, bed rail Transportation Needs at Discharge Private Vehicle
--- NOTE | 2020-04-19 14:50 | CM.DPC ---
DCP Cont: Per Ortho and Hospitalist, pt tolerated hip pinning procedure well and not quite stable for discharge yet today. Per PT, able to complete initial eval and and plans for CG training with Dtr and recommending likely safe d/c home with Dtr assist and outpt vs HH PT. SW did not meet beside with pt today due to triage needs and further PT needed to determine outpt vs HH PT. Plan: SW to follow closely after further PT to determine home with Dtr assist and outpt vs HH. KELVIN Harrison
--- NOTE | 2020-04-19 18:38 | PM.PN.1 ---
Subjective Subjective Date Patient Seen: 04/19/20 Interval history: The patient is a 74-year-old female admitted to the hospital for right hip fracture. She tolerated her procedure without difficulty. The patient uneventful night. She is making slow but steady progress. She was able to ambulate with PT and OT yesterday. She is planning to return home with her daughter and son-in-law as her caregiver. She has no specific complaints today. She does report pain however it appears to be well controlled Exam Vital Signs (past 8 hours): - 04/19/20 11:23 04/19/20 15:45 Temperature 98.2 F 97.9 F Pulse Rate 66 76 Respiratory Rate 13 18 Blood Pressure 127/62 142/71 H Pulse Oximetry 98 98 Oxygen Delivery Method Room Air Oxygen Flow Rate 0 Narrative Exam Narrative: Pleasant female resting comfortably in no obvious distress Lungs: Clear to auscultation Cardiac exam: Regular rate and rhythm normal S1-S2 with a 2/6 systolic ejection murmur Abdomen: Soft nontender nondistended Extremities: Mild edema the right lower extremity Objective Labs Result Diagrams: 04/19/20 04:40 04/19/20 04:40 Labs: Laboratory Results - last 24 hr 04/18/20 04/19/20 04/19/20 04:40 04:40 04:40 WBC 6.3 RBC 2.48 L Hgb 8.1 L Hct 24.0 L MCV 96.9 MCH 32.8 MCHC 33.9 RDW 16.4 H Plt Count 136 L Neut % (Auto) 88.4 H Lymph % (Auto) 4.0 L [place] % (Auto) 7.5 Eos % (Auto) 0.0 L Baso % (Auto) 0.1 Neut # (Auto) 5500 Lymph # (Auto) 200 L [place] # (Auto) 500 Eos # (Auto) 0 Baso # (Auto) 0 Haptoglobin 79 Sodium 133 L Potassium 4.1 Chloride 109 H Carbon Dioxide 22 BUN 23 H Creatinine 1.34 H Estimated GFR 38.5 L BUN/Creatinine Ratio 17.2 Glucose 206 H D Calcium 8.2 L NT-Pro-B Natriuret Pep 2530 H PFSH Medical History Benign essential HTN GERD (gastroesophageal reflux disease) Hiatal hernia Hyperlipidemia associated with type 2 diabetes mellitus Osteopenia Psoriasis Family History Mother Breast cancer Family/Other Breast cancer Social History household members: none Smoking Status: Never smoker Assessment & Plan Assessment & Plan narrative: . 74-year-old female admitted to the hospital with a right intertrochanteric fracture following a fall -patient likely has underlying osteoporosis contributing to her fracture -she is status post cephalic medullary nail -but will initiate treatment for osteoporosis postoperatively -she is improving daily with physical therapy and occupational therapy. Plans are for her to discharge home tomorrow 2. Hypertension -continue benazepril and metoprolol 3. Type 2 diabetes -patient previously on metformin -CONTINUE TO MONITOR BLOOD SUGAR -will initiate corrective dose insulin as appropriate -defer basal insulin at this time 4. Hyperlipidemia -HOLD STATIN UNTIL RHABDOMYOLYSIS HAS RESOLVED 5. Rhabdomyolysis -IV fluids have -continue to monitor CPK -discontinued IV fluid 5. Chronic renal failure -will avoid nephrotoxic agent -continue to hold Lasix -will follow-up daily 6. Acute blood loss and -patient received 1 unit of packed RBCs, no evidence of heart failure, -no evidence of ongoing bleeding 7. Hyponatremia -likely related to IV will continue monitor Continue PT and OT DVT prophylaxis per Orthopedic surgery Anticipate discharge home tomorrow with home health
[2020-04-19] MEDS: SENNOSIDES 8.6 MG TABLET 17.2 MG PO (20:07)
[2020-04-19] MEDS: ATORVASTATIN 20 MG TABLET PO (20:07)
[2020-04-20] MEDS: HYDROCODONE/ACET 5/325 TABLET 2 TAB PO ×3 (02:30→14:00)
[2020-04-20 04:43] VITALS: BP 149/70; PULSE 69; RESP 15; TEMP 36.2; O2SAT 97
[2020-04-20 05:30] LABS: Hematocrit 22.8 % (36-46); Hemoglobin 7.7 g/dL (12.0-16.0)
[2020-04-20 05:35] LABS: BUN Creatinine Ratio 17.6 (6-22); Blood Urea Nitrogen 26 mg/dL (7-17); Calcium 8.4 mg/dL (8.4-10.2); Carbon Dioxide 25 mmol/L (22-32); Chloride 110 mmol/L (98-107); Creatine Kinase 677 U/L (30-135); Estimated Glomerular Filt Rate 34.3 mL/min (>60); Glucose 102 mg/dL (80-110); HEMOLYSIS < 15 (0-50); Potassium 4.3 mmol/L (3.4-5.1); Sodium 134 mmol/L (137-145)
--- NOTE | 2020-04-20 07:54 | PM.PNPO.1 ---
Subjective Subjective Date Patient Seen: 04/20/20 Time Patient Seen: 07:54 Interval history: POD #2 s/p IM nailing of displaced intertrochanteric right femur fracture with Dr. Loving. Patient's pain is well controlled. She has mobilized with PT in her room. Exam Vital Signs (past 8 hours): - 04/20/20 04:43 Temperature 97.2 F L Pulse Rate 69 Respiratory Rate 15 Blood Pressure 149/70 H Pulse Oximetry 97 Oxygen Delivery Method Room Air Oxygen Flow Rate 0 Narrative Exam Narrative: Patient sitting up in bed in NAD. She is alert and oriented X3. Calves are soft, compressible, and nontender bilaterally. DP pulses symmetrical. She is able to actively dorsiflex and plantarflex. Upper dressing is completely saturated with fluid. Bottom dressing has some shadow drainage. Objective Labs Result Diagrams: 04/20/20 05:15 04/20/20 05:15 Labs: Laboratory Results - last 24 hr 04/20/20 04/20/20 05:15 05:15 Hgb 7.7 L Hct 22.8 L Sodium 134 L Potassium 4.3 Chloride 110 H Carbon Dioxide 25 BUN 26 H Creatinine 1.48 H Estimated GFR 34.3 L BUN/Creatinine Ratio 17.6 Glucose 102 D Calcium 8.4 Total Creatine Kinase 677 H D PFSH Medical History Benign essential HTN GERD (gastroesophageal reflux disease) Hiatal hernia Hyperlipidemia associated with type 2 diabetes mellitus Osteopenia Psoriasis Family History Mother Breast cancer Family/Other Breast cancer Social History household members: none Smoking Status: Never smoker Assessment & Plan Post-op Postoperative Procedures: Procedures Operation Date: 04/18/20 09:45 Actual Procedures Side Surgeon p Intramedullary Nailing Femur Right Carlin Loving MD Patient will continue to mobilize with PT today. Upper dressing changed this AM by nursing. Coversite and ABD applied for compression, and per nursing there was active serosanguinous drainage. Will leave this on for the day unless saturates. Patient will stay until drainage has stopped.
[2020-04-20 08:26] VITALS: BP 162/74; PULSE 67; RESP 13; TEMP 36.6; O2SAT 99
[2020-04-20 08:50] VITALS: BP 162/74; PULSE 67
[2020-04-20] MEDS: METOPROLOL ER 25 MG TABLET PO (08:50)
[2020-04-20] MEDS: DOCUSATE 100 MG CAPSULE PO (08:50)
[2020-04-20] MEDS: SODIUM CHLORIDE 0.9% FLUSH 10 ML IV (08:52)
[2020-04-20] MEDS: FUROSEMIDE 20 MG TABLET PO (08:52)
[2020-04-20] MEDS: ASPIRIN EC 81 MG TABLET PO (08:52)
[2020-04-20] MEDS: BENAZEPRIL 20 MG TABLET PO (08:52)
[2020-04-20] MEDS: METFORMIN HCL 500 MG TABLET PO ×2 (08:57→18:25)
--- NOTE | 2020-04-20 10:46 | PT.IPTN ---
Current Diagnoses Displaced intertrochanteric fracture of right femur, initial encounter for closed fracture (04/17/20) Surgery Performed Operation Date: 04/18/20 09:45 Actual Procedures p Intramedullary Nailing Femur(Right) - Carlin Loving MD Physical Therapy Treatment Note M2 PT-IP Current Condition Start: 04/19/20 08:28 Freq: NEEDED Status: Active Protocol: Document 04/19/20 10:30 [facility] (Rec: 04/19/20 12:01 [facility] [id number]) Physical Therapy Current Condition Current Condition Evaluation Date 04/19/20 Treatment Diagnosis R IT fracture s/p IM nail; difficulty in walking Weight Bearing Status Weight Bearing Status Weight Bear as Tolerated M3 PT-IP Subjective Start: 04/19/20 08:28 Freq: NEEDED Status: Active Protocol: Document 04/20/20 09:58 [facility] (Rec: 04/20/20 13:08 [facility] [id number]) Subjective Physical Therapy Visit Type Type Treatment Note Visit Start Time 09:58 Visit Stop Time 10:46 Total Visit Minutes 48 Notes Daughter Radha present for CG training Number of LIQUID CENTER ASSEMBLER Visits 2 Physical Therapy Visit Comments Patient Comments Pt is willing to participate with PT Patient Goals Pt hopes to avoid SNF and go home with her daughters assisting. Therapy Pain Assessment Pain When Pain Assessed During Mobility Pain Present Pain Present Pain Reported Location Right Leg Intensity 6 Pain Behaviors Facial Grimacing,Holding Area, Wincing Pain Management Techniques Apply Cold,Timing of Activity with Medications M4 PT-IP Mobility and Gait Start: 04/19/20 08:28 Freq: NEEDED Status: Active Protocol: Document 04/20/20 09:58 [facility] (Rec: 04/20/20 13:08 [facility] [id number]) PT-Bed Mobility Assessment Supine to Sit Supine to Sit Minimal Assistance,1 Person Assistance Sit to Supine Sit to Supine Minimal Assistance,1 Person Assistance Scooting Scooting to Edge of Bed Standby Assistance PT-Transfer Assessment Sit to and From Stand Sit to and from Stand Standby Assistance,1 Person Assistance,Use of Upper Extremities Equipment Transfer Assistive Device Gait Belt,Front Wheeled Walker Orthotic/Prosthetic Devices or Brace: No Transfers Transfer Destination Chair,Toilet Transfer Technique pt ambulated with FWW Transfer Ability Level of Assist Standby Assistance,1 Person Assistance,Use of Upper Extremities Comments Mobility Comments Pt in chair upon arrival with daughter present. Pt able to scoot forward in chair and stand SBA, pt ambulated to toilet with assist of daughter sitting on toilet SBA. Pt able to perform own pericare. Pt then stood from toilet SBA and ambulate to platform step. Pt climbed one step x2 with use of FWW and daughter providing CGA. Pt then ambulated in room ~75ft w/FWW/ SBA. Pt's daughter assisted pt into bed providing pt with Min A of RLE, pt performed ther ex in supine and daughter provided Min A of RLE to sitting on EOB. Pt stood from bed SBA and transferred to chair SBA. Pt left in chair with all needs within reach and daughter present. Gait Assessment Gait Gait Assistance Required: Standby Assistance,1 Person Assist Distance (Feet) 75 Able to Maintain Weight Bearing Status Yes During Gait Assistive Devices Assistive Device Gait Belt,Front Wheeled Walker Orthotic/Prosthetic Devices or Brace: No Gait Deviations General Gait Pattern Antalgic,Decreased Stride Length,Decreased Feet Clearance,Flexed Trunk Factors Limiting Gait Function Factors Limiting Gait Function Decreased Activity Tolerance, Decreased Sensation,Decreased Strength,Limited Range of Motion,Pain,Poor Balance Comments Gait Comments Pt improving with gait quality able to ambulate with small step thru gait pattern, increased bacilio and increased distance. Stair Climbing Assessment Evaluation Level of Assist On Stairs Contact Guard Assistance,1 Person Assistance Devices Stair Climbing Assistive Devices Front Wheel Walker Technique/Endurance Stair Climbing Direction Ascend and Descend Stair Climbing Technique Step to Step Number of Steps Climbed 1 Stair Climbing Set # Repetitions (reps) 2 Comments Stair Climbing Comments Pt able to climb platform step with FWW with daughter providing CGA. M5 PT-IP Objective Assessments Start: 04/19/20 08:28 Freq: NEEDED Status: Active Protocol: Document 04/19/20 10:30 [facility] (Rec: 04/19/20 12:08 [facility] [id number]) Orientation Orientation/Cognition Level of Alertness Alert Orientation Name,Age,Birthday,Month,Date, Year,Day of Week,Place, Situation Safety Awareness Decreased Safety Awareness Memory Description No Deficits Noted Gross Range of Motion Lower Extremity ROM Assessment Right Impaired Strength Lower Extremity Strength Assessment Right Impaired Hip 3+/5 Knee 4-/5 Comments Strength Comments LLE grossly 4+/5 Coordination Assessment Gross Coordination Gross Coordination WNL Sensation Assessment Sensation Gross Sensation WNL Muscle Tone Muscle Tone WNL Yes M6 PT-IP Treatment Start: 04/19/20 08:28 Freq: NEEDED Status: Active Protocol: Document 04/20/20 09:58 [facility] (Rec: 04/20/20 13:08 [facility] [id number]) Physical Therapy Treatment Exercises Exercises Ankle Pumps,Gluteal Sets,Quad Sets,Heel Slides,Supine Hip Abduction Education Education Provided Weight Bearing Status,Safety Other Treatments Other Treatment Performed provided education on transfer in to and out of car. M7 PT-IP Assessment and Plan Start: 04/19/20 08:28 Freq: NEEDED Status: Active Protocol: Document 04/20/20 09:58 [facility] (Rec: 04/20/20 13:08 [facility] [id number]) PT Summary Assessment and Plan Potential Rehabilitation Potential Good Status of Condition at Evaluation Stable Summary Impairments Pain,ROM,Strength,Balance, Sensation,Bed Mobility, Transfers,Gait,Activity Tolerance Assessment Summary Pt continues to improve with mobility. Pt able to perform sit<>stand and gait requiring SBA with increase in gait quality and bacilio. Pt ambulated ~75ft w/FWW/SBA and climb two platform steps CGA with daughter providing assist . Pt daughter also able to provide Min A of RLE in and out of bed. Pt seems safe to d /c with assist of daughter when medically stable. Goals Bed Mobility Goal Standby Assistance Transfer Goal Standby Assistance,Front Wheeled Walker Gait Goal Standby Assistance,Front Wheel Walker Gait Distance 100 Other Goals - up/down 2 steps with cane in one hand, STAYING MACHINE OPERATOR other side Days to Meet Goals 5 Frequency of Treatment Frequency Of Treatment Twice a Day Treatment Plan Physical Therapy Treatment Plan Bed Mobility Training,Transfer Training,Gait Training, Therapeutic Exercise,Balance Retraining,Post Op Education, Discharge Planning,Hot or Cold Pack,Neuromuscular Re-ed Recommendations To Nursing Amount of Assist Needed 1 Person Assist Discharge Recommendations PT Discharge Recommendations Home with Assistance,Home Health Equipment Needed for Home Before FWW Pt's daughter will get FWW Discharge for pt. Transportation Needs at Discharge Private Vehicle
--- NOTE | 2020-04-20 10:57 | OT.IP.TRT ---
Current Diagnoses Displaced intertrochanteric fracture of right femur, initial encounter for closed fracture (04/17/20) Surgery Performed Operation Date: 04/18/20 09:45 Actual Procedures p Intramedullary Nailing Femur(Right) - Carlin Loving MD Occupational Therapy Treatment Note M2 OT-IP Current Condition Start: 04/19/20 16:18 Freq: Status: Active Protocol: Document 04/19/20 13:50 [facility] (Rec: 04/19/20 16:36 [facility] [id number]) Occupational Therapy Current Condition Current Condition Evaluation Date 04/19/20 Treatment Diagnosis Intramedullary Nailiing right femur Diagnosis Onset Date 04/18/20 M3 OT- IP Subjective and Pain Start: 04/19/20 16:18 Freq: Status: Active Protocol: Document 04/20/20 10:58 [facility] (Rec: 04/20/20 11:05 [facility] [id number]) OT- Subjective Occupational Therapy Visit Type Type Treatment Note Visit Start Time 09:15 Visit Stop Time 10:57 Total Visit Minutes 20 Notes Pt seen from [id number] and then [id number] due to caregiver training in later AM. Occupational Therapy Visit Comments Patient Comments Pt's daughter present for caregiver training. Patient/Caregiver Goals TO go home. OT Pain Assessment Pain When Pain Assessed At Rest Pain Present Pain Present Denied Pain M4 OT- IP ADL's Start: 04/19/20 16:18 Freq: Status: Active Protocol: Document 04/20/20 10:58 [facility] (Rec: 04/20/20 11:05 [facility] [id number]) OT ADL-Dressing Comments OT Dressing Comments Spoke to daughter regarding best to garrick operated side first and take out last. OT ADL-Toileting Comments OT Toileting Comments Pt and daughter agreed best to use pads/brief and wipes fro toileting needs in addition to BSC. OT ADL-Bathing Comments OT Bathing Comments Pt too tired to shower at this time. Pt's daughter looking to get tub transfer bench, otherwise if not able to get it would be safer to do sponge bathing initially. M5 OT- IP IADL's Start: 04/19/20 16:18 Freq: Status: Active Protocol: Document 04/19/20 13:50 [facility] (Rec: 04/19/20 16:36 [facility] [id number]) OT-Instrumental Activities of Daily Living Home Safety Awareness Awareness of Need for Assistance at Home Good Awareness Ability to Problem Solve Emergency Able to Problem Solve Situations Medication Management Medication Management No Deficits Identified Money Management Money Management No Deficits Identified Meal Preparation Meal Preparation Comments At this time due to recent fall and sx , pt will need assist for all IADl needs. Planer Offbearer Planer Offbearer Comments At this time due to recent fall and sx , pt will need assist for all IADl needs. M6 OT- IP Functional Cognition Start: 04/19/20 16:18 Freq: Status: Active Protocol: Document 04/20/20 10:58 [facility] (Rec: 04/20/20 11:05 [facility] [id number]) Cognitive Factors Limiting Selfcare Function Cognitive Comments Cognitive Assessment Comments At this time pt appears to be cognitively intact with no issues. M9 OT- IP Assessment and Plan Start: 04/19/20 16:18 Freq: Status: Active Protocol: Document 04/20/20 10:58 [facility] (Rec: 04/20/20 11:05 [facility] [id number]) OT Summary Assessment and Plan Potential Rehabilitation Potential Good Analytic Complexity at Evaluation Low Summary Progress Towards Goals Progressing Toward Goals Assessment Summary Pt's daughter her for caregiver training and able to educated regarding ADl needs for assist and equipment. Pt and daughter just completed training with [employer] and too tired to attempt showering/ dressing at this time but states good understanding for safety suggestions. Pt to go home with assist when medically stable. Goals Grooming Goal Independent Dressing Goal Standby Assistance Toileting Goal Independent Bathing Goal Standby Assistance Toilet Transfer Goal Independent Shower Transfer Goal Standby Assistance Patient/Caregiver Education Goal Demonstrate Post-Op Precautions,Caregiver Independent Assisting Patient Days to Meet Goals 3 Frequency of Treatment Frequency Of Treatment Once a Day Treatment Plan OT Treatment Plan ADL Training,Functional Mobility,Patient/Family Education,Discharge Planning Discharge Recommendations OT Discharge Recommendations Home with Assistance,Home with 24/7 Assist Home Equipment Needs BSC, youth FWW, bed rail, tub transfer bench Transportation Needs at Discharge Private Vehicle
--- NOTE | 2020-04-20 11:05 | CM.DPC ---
DCP HH Planning Per MD, waiting for Ortho MD to round to view pt's wound and determine if she is stable for d/c home today or possibly tomorrow. SW met bedside with pt and adult Dtr right at the end of PT stairs and CG training and pt did quite well and recommendation is home with Dtr assist and HH. SW discussed HH services and frequency and provided the HH Choice List and no preference at this time. SW called [facility] with new referral based on Vendor Calendar but [facility] cannot start care for about 7 days due to the holiday this week. SW called [facility] and they can open pt to service within the 48 hours and agreeable with taking new referral. F2F and MD orders complete but no discharge summary yet and [facility] aware that pt may d/c today or tomorrow. CC Meredith kindly to fax the referral including F2F and orders. Plan: SW to follow for plan of home with Dtr and new [facility] referral either today or likely tomorrow. KELVIN Harrison
[2020-04-20 11:06] VITALS: BP 147/65; PULSE 72; RESP 13; TEMP 36.6; O2SAT 100
[2020-04-20] MEDS: INFLUENZA HD VACCINE 0.7 ML SYRINGE IM (13:41)
--- NOTE | 2020-04-20 14:05 | PC.NURSE ---
Pt's proximal Aquacel Surgical dressing changed per SHAYLA Booth's instruction at 0815. Aquacel dressing saturated with serosanguineous drainage, incision intact, covered with ABD pads x 2 applied as a pressure dressing. Reassessed dressing at 1400, CDI. H/H low this am, hospitalist and surgeon aware, surgeon to evaluate dressing and determine status of discharge.
[2020-04-20 15:55] VITALS: BP 138/71; PULSE 83; RESP 17; TEMP 36.8; O2SAT 98
[2020-04-20 18:10] VITALS: BP 116/62; PULSE 83; RESP 16; TEMP 36.7; O2SAT 99
--- NOTE | 2020-04-20 18:20 | P.DS_ITS ---
History of Present Illness History of Present Illness Date Patient Seen: 04/17/20 Chief complaint: GLF, right hip pain Narrative: Written by Kathleen ROGERS: Patient is a 74F Holliekhoi Granger who presented to the ER with a chief complaint of severe R hip pain since a fall Thrusday night. Patient states that she was getting ready to go to bed evening of Living her puppy out she is unaware if she tripped or had a loss of consciousness she does not believe that she hit her head but is unsure. Patient remained struggling on the floor to try to reach her phone all night night and all day on Sunday until finally her puppy knocked her cellphone onto the floor and she was able to dial 911. Patient has a history of hypertension, lipidemia, diabetes type 2, hypercalcemia, osteopenia, and GERD. Patient denies CP, SOB, N/V/D, neck, back or abdominal pain. She has significant pain in her hip with movement, which improved with rest. in the ER. She was given ketamine and fentanyl by the EMS and then received hydromorphone in the emergency, has no pain at this time. She feels weak, and worn out but she is awake, alert, and oriented and denies numb ness, tingling, or weakness. Recent injury or illness, abnormal bleeding or bruising. Patient had a positive right hip femur neck fracture. CK-MB 10.05, troponin 0.041, total creatinine kinase 4041, BNP 2007 and 80, estimated GFR 34.8, hemoglobin 9.7, hematocrit 29.1, BUN 33, creatinine 1.46, sodium 135, glucose 170. Discharge Providers Provider Date of admission: 04/17/20 04:40 Discharge Date: 04/20/20 Primary care physician: Eryn Molina MD Consults: 04/17/20 05:13 Consult to Discharge Planning Routine Comment: Consult to Occupational Therapy Evaluate & Treat Comment: Physician Instructions: Evaluate and treat Consult to Physical Therapy Evaluate & Treat Comment: Physician Instructions: Evaluate and Treat 04/18/20 12:10 Consult to Discharge Planning Routine Comment: Consult to Physical Therapy Evaluate & Treat Comment: Physician Instructions: Evaluate and Treat Consult to Respiratory Therapy Evaluate & Treat Comment: Physician Instructions: Evaluate and treat 04/19/20 09:35 Consult to Physical Therapy Evaluate & Treat Comment: WBAT RLE Physician Instructions: Evaluate and Treat 04/19/20 10:41 Consult to Occupational Therapy Evaluate & Treat Comment: Physician Instructions: Evaluate and treat 04/20/20 10:46 Consult to Home Health Routine Comment: Hip fx, diabetes, hypertension Reason For Exam: Set up RN/PT/OT/[employer] for d/c home Discharge provider: Tanika Varma DO Summary Hospital Course Discharge Diagnosis: 1. Acute pathological right intertrochanteric fracture, present on admission. Active. 2. Acute blood loss anemia, present on admission. Stable. 3. Acute rhabdomyolysis, present on admission. Resolving. 4. Mild hyponatremia, uncelar acuity, present on admission. Stable. 5. Hypertension, chronic, present on admission. Stable. 6. Hyperlipidemia, chronic, present on admission. Stable. 7. Diabetes mellitus type 2, non-insulin using, chronic, present on admission. Stable. 8. Chronic kidney disease, present on admission. Stable. Hospital Course: Hollie Granger is a 74-year-old female with a past medical history significant for hypertension, hyperlipidemia, diabetes mellitus type 2, non-insulin using, and CKD stage 3 who presented to ED via EMS after ground level fall and being down on ground for approximately 48 hours. 1. Acute pathological right intertrochanteric fracture, present on admission. Active. -Patient presented after ground level fall and being down on floor for approximately 48 hours. -Consuklted orthopedic surgery, Dr. Loving, who performed right short cephalic medullary naiing. Continued postoperative management, pain control and VTE prophylaxis per orthopedic surgery. Continued Aspirin 81 mg twice daily for VTE prophylaxis and famotidine 20 mg twice daily for GI prophylaxis. -Continued acetaminophen 650 mg every 6 hours as needed for mild pain and hydrocodone 5-325 mg 1-2 tabs every 4 hours as needed for moderate to severe pain. -Continued calcium and vitamin D3 supplementation. Patient will need to be treated for osteoporosis in future per PCP or ortho. -Continued physical and occupational therapy evaluation and treatment. Patient discharged home with daughter and home health for continued rehabilitation. 2. Acute blood loss anemia, present on admission. Stable. -Secondary to right hip fracture and surgical repair. -Initial hemoglobin 9.7. Hemoglobin trended down to 7.1 and received 1 unit of PRBCs with appropriate compensation to 8.1. Hemoglobin stable at 7.7. No evidence of ongoing bleeding but surgical sight minimal oozing. Transfusion goal hemoglobin < 7.0. -Started ferrous gluconate 324 mg daily with bowel regimen to avoid constipation. -Continued to monitor H&H daily. Recommend repeat H&H at post-op appointment. 3. Acute rhabdomyolysis, present on admission. Resolving. -Secondary to fall and being down for 48 hours. -Continued IV fluids until adequately hydrated then discontinued. -Initial CPK 4841. Continued to monitor CPK daily now down to 677. 4. Mild hyponatremia, uncelar acuity, present on admission. Stable. -Likely related to decreased PO intake and dehydration. -Initial sodium level 135 trended down to 133 and back up to 134. Sodium level stable. -Continued IV fluids until adequately hydrated then discontinued. -Continued to monitor sodium level daily. 5. Hypertension, chronic, present on admission. Stable. -Continued home benazepril 20 mg twice daily and metoprolol succinate 25 mg daily. 6. Hyperlipidemia, chronic, present on admission. Stable. -Held statin until rhabdomyolysis nearly resolved and may continue outpatient. 7. Diabetes mellitus type 2, non-insulin using, chronic, present on admission. Stable. -Hemoglobin A1C 5.2% indicative of diabetes in remission. -Continued home metformin 500 mg twice daily. -Continued monitor [facility] blood glucose checks and low-dose correctional scale insulin. -Continued heart healthy/carbohydrate consistent diet. 8. Chronic kidney disease stage 3, present on admission. Stable. -Creatinine 1.48 at baseline and remained stable. -Avoided nephrotoxic agents. Held home furosemide until discharge. -Continued to monitor creatinine daily. Exam Vital Signs (past 8 hours): - 04/20/20 11:06 04/20/20 15:55 Temperature 97.9 F 98.2 F Pulse Rate 72 83 Respiratory Rate 13 17 Blood Pressure 147/65 H 138/71 Pulse Oximetry 100 98 Oxygen Delivery Method Room Air Oxygen Flow Rate 0 Narrative Exam Narrative: General: Elderly female sitting in bedside chair and in no acute distress, well- developed, well-nourished, appropriately interactive. HEENT: Normocephalic, atraumatic. External ears without defect. Pupils equal, round, and reactive to light. Anicteric sclerae, moist conjunctivae, and no lid lag. Oropharynx free of erythema and cobble stoning with moist mucosa. Neck: Supple with full range of motion. No jugular venous distension. No lymphadenopathy or thyromegaly. Cardiovascular: Regular rate and rhythm without murmurs, rubs, or gallops appreciated Pulmonary: Clear to auscultation bilaterally without crackles, wheezes, or rhonchi. Normal respiratory effort with no use of accessory muscles. Abdomen: Soft, bowel sounds present, nontender, nondistended. No hepatosplenomegaly or masses appreciated. Extremities: No clubbing, cyanosis, or edema. Right hip with dressing in place with flash dried heme otherwise clean, dry and intact with mild surrounding edema. Skin: Normal temperature, turgor, and texture; no rash, ulcers, or subcutaneous nodules appreciated. Neurological: Cranial nerves grossly intact. Psychiatric: Normal mood and affect. Alert and oriented to person, place, and time. Objective Labs Result Diagrams: 04/20/20 05:15 04/20/20 05:15 Labs: Laboratory Results - last 24 hr 04/20/20 04/20/20 05:15 05:15 Hgb 7.7 L Hct 22.8 L Sodium 134 L Potassium 4.3 Chloride 110 H Carbon Dioxide 25 BUN 26 H Creatinine 1.48 H Estimated GFR 34.3 L BUN/Creatinine Ratio 17.6 Glucose 102 D Calcium 8.4 Total Creatine Kinase 677 H D [facility] Medical History Benign essential HTN GERD (gastroesophageal reflux disease) Hiatal hernia Hyperlipidemia associated with type 2 diabetes mellitus Osteopenia Psoriasis Family History Mother Breast cancer Family/Other Breast cancer Social History household members: none Smoking Status: Never smoker Discharge Plan Discharge Plan Patient Disposition: Home Health Service Provider Discharge Comment: You are being discharged home with home health for continued physical therapy and occupational therapy. You broke your right hip which was surgically repaired. You have been prescribed aspirin 81 mg twice daily for 6 weeks to prevent blood clots and famotidine 20 mg twice daily for 6 weeks to protect your GI tract from aspirin use. You have been prescribed hydrocodone 1-2 tabs every 4-6 hours as needed for moderate to severe pain and iron 324 mg daily to help rebuild your blood stores. Both the pain medication and iron will likely cause constipation and you have been prescribed Colace 100 mg twice daily and MiraLax 17 g daily as needed to prevent constipation. Please follow-up with Dr. Loving in 2 weeks for your post-op appointment. Discharge orders & Medications Prescriptions: New aspirin 81 mg Tablet,Delayed Release (Dr/Ec) 81 mg PO BID Qty: 90 RF: 0 calcium carbonate-vitamin D3 [Oyster Shell Calcium-Vit D3] 500 mg(1,250mg) - 200 unit Tablet 1 tab PO BIDWM Qty: 60 RF: 0 docusate sodium [DOK] 100 mg Capsule 100 mg PO BID Qty: 60 RF: 0 hydrocodone-acetaminophen 5-325 mg Tablet 1 - 2 tab PO Q4HR PRN (Reason: Pain, Severe (7-10)) Qty: 20 RF: 0 famotidine [Pepcid AC] 20 mg Tablet 20 mg PO BID Qty: 90 RF: 0 ferrous gluconate 324 mg (37.5 mg iron) tablet 324 mg PO DAILY Qty: 30 RF: 0 polyethylene glycol 3350 [Miralax] 17 gram/dose powder 17 g PO DAILY PRN (Reason: constipation) Qty: 119 RF: 0 Continued metformin 500 mg Tablet 500 mg BID RF: 0 atorvastatin 20 mg Tablet 20 mg PO DAILY RF: 0 benazepril 20 mg Tablet 20 mg BID RF: 0 furosemide 20 mg Tablet 20 mg PO DAILY RF: 0 metoprolol succinate 25 mg Tablet Extended Release 24 Hr 25 mg PO DAILY RF: 0 No Action hydrocodone-acetaminophen 5-325 mg tablet 1 tab PO Q6H PRN (Reason: pain) Qty: 10 RF: 0 Follow up/Referrals: Carlin Loving MD [Physician] - 2 Weeks Eryn Molina MD [Primary Care Provider] - Diet/Activity/Treatments Diet: Low-fat, Low-sodium and Low-cholesterol Activity: Activity as tolerated with walker and physical and occupational therapy Skin/Wound/Dressing Care Dressing: Please keep dressing clean and dry. This will be changed at post-op appointment. No submerging or soaking in water, showering is okay. Visit Report/Discharge Packet Instructions: Heart-Healthy Diet, DI for Hip Replacement, DI for Prescription Opioid Use, Stool Softeners, Aspirin, Hydrocodone, Famotidine (By mouth) Discharge Data Primary Care Provider: Eryn Molina
--- NOTE | 2020-04-20 18:33 | PC.NURSE ---
Addendum entered by Devyn Leach R.N. 04/20/20 19:51: Patient was escorted out by aid, via WC. Patient left in stable condition, VSS, IV and tele removed. Daughter to escort patient home. PT left with all belongings in hand. Original Note: Patient is A&O x4, pleasant and cooperative and able to make needs known when needed. VSS. Patient is eager to be able to go home. Dr. Loving in room to see patient and evaluate dressing. Inder changed bulky drg. to aquacel and distal drg. is well intact and dry with some noted shadow drainage. Pt teaching done with daughter at bedside.
--- NOTE | 2020-04-21 08:59 | CM.DPNOTE ---
Faxed clinicals and face to face to [facility] per [place] on 04/20/20. Meredith Go CM Asst.
== END 2020-04-20 19:05 | disposition home health service (06) | DRG 481 ==
LOC: ED 04:09 → AC 04:41
PROVIDERS: Internal Medicine; Orthopaedic Surgery Adult Reconstructive Orthopaedic Surgery; Physician Assistant Medical; Admitting Provider Nurse Practitioner Family; Emergency Provider Emergency Medicine; PCP Internal Medicine; Referring Provider Emergency Medicine; Visit Provider Nurse Practitioner Family
PROC: 0QS606Z Reposition Right Upper Femur with Intramedullary Internal Fixation Device, Open Approach (ICD-10-PCS; CPT 27245; principal; 2020-04-18 09:45)
DX: M80.051A Age-related osteoporosis with current pathological fracture, right femur, initial encounter for fracture (principal); M62.82 Rhabdomyolysis; D62 Acute posthemorrhagic anemia; E87.1 Hypo-osmolality and hyponatremia; E11.22 Type 2 diabetes mellitus with diabetic chronic kidney disease; N18.30 Chronic kidney disease, stage 3 unspecified; W18.30XA Fall on same level, unspecified, initial encounter; I10 Essential (primary) hypertension; E78.5 Hyperlipidemia, unspecified; K21.9 Gastro-esophageal reflux disease without esophagitis; Z20.828 Contact with and (suspected) exposure to other viral communicable diseases; G89.18 Other acute postprocedural pain; Z79.84 Long term (current) use of oral hypoglycemic drugs
CPT/HCPCS: 36415; 36430; 51701; 70450; 71260; 72125; 73502; 73552; 74177; 76000; 80048; 80053; 81001; 82550; 82553; 82607; 82728; 82746; 82962; 83010; 83036; 83540; 83550; 83605; 83615; 83735; 83880; 84484; 84550; 85014; 85018; 85025; 85045; 85610; 86850; 86900; 86901; 87635; 90471; 90662; 96361; 96374; 97110; 97116; 97161; 97165; 97530; 97535; 99284; P9016; J1100; J1170; J1200; J2274; J2405; J2704; J3010; Q9967

== ENCOUNTER 2020-04-24 16:43 | Emergency (ER) | payer MEDICARE, SELFPAY ==
[2020-04-17 05:27] VITALS: BMI 24.2
[2020-04-24 16:50] VITALS: BP 193/82; PULSE 80; RESP 16; TEMP 36.7; O2SAT 99; BMI 24.2
--- NOTE | 2020-04-24 17:00 | DI.US.S_ITS ---
PROCEDURE: US PERIPH VENOUS LOW EXTREM RT INDICATIONS: recent R hip ORIF, pain/swelling TECHNIQUE: Real-time imaging, as well as color and pulse Doppler interrogation, were performed of the lower extremity deep veins from the inguinal ligament to the popliteal fossa. COMPARISON: None. FINDINGS: The common femoral, femoral and popliteal veins are normally compressible, and free of intraluminal thrombus. Color and pulse Doppler demonstrate normal phasic intraluminal flow. There is normal augmentation response to distal compression maneuver. IMPRESSION: Negative for deep venous thrombosis. Dictated by: Marquis Link M.D. on 04/24/2020 at 16:46 Approved by: Marquis Link M.D. on 04/24/2020 at 16:46
--- NOTE | 2020-04-24 18:44 | ED_ITS ---
HPI - Extremity Injury (Lower) General Chief Complaint: Extremity Injury, Lower Stated Complaint: Right Leg Swollen and Painful, Check DVT Time Seen by Provider: 04/24/20 18:30 Source: patient Mode of arrival: Ambulatory Limitations: no limitations History of Present Illness HPI Narrative: Patient is a 74-year-old female who presents with right leg swelling. She is post operative day 6 after right intertrochanteric hip fracture. She was discharged home with her daughter. She has noticed increased swelling as she has become more active. Concern today was for DVT. She denies numbness or tingling. Daughter stated they are having some difficulty with pain control at home. He is taking 1 [place] every 6 hours with some Tylenol as well. She is scheduled to see ortho in about a week and a half. He is also complaining that her fingers are difficult to straighten although somebody else can passively straighten them. She apparently fell and was on the ground for about 2 days and she used her fingers to pull and crawl around. She denies any pain in her fingers mostly complaining of pain in her leg. She has been using ice and heat. She denies any chest pain fever or shortness of breath MD complaint: hip injury Related Data Home Medications Medication Instructions Recorded Confirmed atorvastatin 20 mg PO DAILY 01/07/20 04/17/20 benazepril 20 mg BID 01/07/20 04/17/20 furosemide 20 mg PO DAILY 01/07/20 04/17/20 metformin 500 mg BID 01/07/20 04/17/20 metoprolol succinate 25 mg PO DAILY 01/07/20 04/17/20 Previous Rx's Medication Instructions Recorded aspirin 81 mg PO BID #90 tab 04/20/20 calcium carbonate-vitamin D3 1 tab PO BIDWM #60 tab 04/20/20 [Oyster Shell Calcium-Vit D3] docusate sodium [DOK] 100 mg PO BID #60 cap 04/20/20 famotidine [Pepcid AC] 20 mg PO BID #90 tab 04/20/20 ferrous gluconate 324 mg PO DAILY #30 tab 04/20/20 hydrocodone-acetaminophen 1 - 2 tab PO Q4HR PRN #20 tab 04/20/20 polyethylene glycol 3350 [Miralax] 17 g PO DAILY PRN #119 g 04/20/20 hydrocodone-acetaminophen 1 tab PO Q6H PRN #10 tab 04/24/20 Allergies Allergy/AdvReac Type Severity Reaction Status Date / Time amoxicillin Allergy Unknown Verified 04/17/20 08:44 esomeprazole Allergy Unknown Verified 04/17/20 08:44 hydrochlorothiazide Allergy Unknown Verified 04/17/20 08:44 Review of Systems Review of Systems Narrative: GENERAL: Denies chills, fatigue, malaise, fever, sweats, travel HEENT: Denies sinus pain, ear pain, sore throat, difficulty swallowing, neck pain RESPIRATORY: Denies dyspnea, cough, wheezing, hemoptysis, sputum. CARDIOVASCULAR: Denies chest pain, palpitations, orthopnea, edema GASTROINTESTINAL: Denies nausea, vomiting, abdominal pain, diarrhea, constipation, melena. : Denies dysuria, frequency, incontinence, hematuria, urinary retention, flank pain. MUSCULOSKELETAL: See HPI SKIN: No rash, no erythema, no pruritus NEUROLOGIC: Denies weakness, dizziness, headache, numbness, change in speech, confusion PSYCHIATRIC: No concerning psychosocial issues. 12 point review of systems is negative except for those stated above and HPI Patient History Medical History Benign essential HTN GERD (gastroesophageal reflux disease) Hiatal hernia Hyperlipidemia associated with type 2 diabetes mellitus Osteopenia Psoriasis Family History Mother Breast cancer Family/Other Breast cancer Social History household members: none Smoking Status: Never smoker Smoking Status: Never smoker alcohol intake frequency: a few times a month Alcohol type: wine Substance Use Type: does not use Exam Initial Vital Signs Initial Vital Signs: Vital Signs Temperature 98.0 F 04/24/20 16:50 Pulse Rate 80 04/24/20 16:50 Respiratory Rate 16 04/24/20 16:50 Blood Pressure 193/82 H 04/24/20 16:50 Pulse Oximetry 99 04/24/20 16:50 GENERAL: Alert pleasant well-appearing 74-year-old female and in no acute distress. HEENT: Head atraumatic,EOMI, pupils reactive, face symmetric, [moist] mucous membranes CARDIOVASCULAR: Regular rate and rhythm without murmurs, rubs or gallops. RESPIRATORY: Breath sounds equal bilaterally, no wheezes rales or rhonchi. EXTREMITIES: Normal range of motion, no clubbing or edema. Neurovascularly intact Right leg significantly swollen with bruising. Distal pedal pulses intact. Dressing is non saturated NEUROLOGICAL: Alert and oriented x4. SKIN: Warm, dry, no laceration, no petechiae, no rashes or lesions. Course Orders Ordered: ED Orders 04/24/20 17:00 perip venous low extrem rt Stat Discontinued Medications Hydrocodone Bitart/Acetaminophen (Hydrocodone/Acet 5/325 Tablet) 1 tab PO NOW ONE Stop: 04/24/20 18:46 Last Admin: 04/24/20 19:14 Dose: 1 tab Documented by: DELILAH Hydrocodone Bitart/Acetaminophen (Hydrocodone/Acet 5/325 Prepack) 1 bottle MISC SEEINSTR ONE Stop: 04/24/20 18:46 Last Admin: 04/24/20 19:14 Dose: 1 bottle Documented by: DELILAH Vital Signs Vital signs: Vital Signs - 8 hr 04/24/20 16:50 04/24/20 19:11 Temperature 98.0 F Pulse Rate 80 74 Respiratory Rate 16 16 Blood Pressure 193/82 H 195/81 H Pulse Oximetry 99 99 [facility] - Extremity Injury (Lower) Lab Data Labs: PROCEDURE: US PERIP VENOUS LOW EXTREM RT INDICATIONS: recent R hip ORIF, pain/swelling TECHNIQUE: Real-time imaging, as well as color and pulse Doppler interrogation, were performed of the lower extremity deep veins from the inguinal ligament to the popliteal fossa. COMPARISON: None. FINDINGS: The common femoral, femoral and popliteal veins are normally compressible, and free of intraluminal thrombus. Color and pulse Doppler demonstrate normal phasic intraluminal flow. There is normal augmentation response to distal compression maneuver. IMPRESSION: Negative for deep venous thrombosis. Dictated by: Marquis Link M.D. on 04/24/2020 at 16:46 [facility] Narrative Medical decision making narrative: Patient has significant swelling of her right leg II think most of it is related to post operative swelling. No DVT is found. They were having difficulty with pain control at home I recommend icing head of the pain rather than waiting until she has pain before taking medications. She overall is doing well. She does have some flexion of her fingers mostly of her left pinky finger it is easily passively extended. It is placed in a splint. she has follow-up with orthopedics in week or 2. Discharge Plan Departure Patient Disposition: Home Clinical Impression: Post-operative pain Instructions: Hip Fracture Activity Restrictions/Additional Instructions: *You have been diagnosed with right hip fracture postoperative pain and swelling *What to do: At this time no blood clot is found. Try to keep leg elevated recommend using ice 20-30 minutes. Take pain medications before you are going to be active try to stay ahead of the pain rather than behind the pain. Keep your finger in the splint as needed. Discussed this with Dr. Loving when you see him *Continue to take medications as directed [place] 1 tablet every 6 hours if needed for severe pain PLEASE PAY ATTENTION TO THE AMOUNT OF TYLENOL SHE IS GETTING *Follow up with your primary care provider in 2-3 days Follow-up with Dr. rojas be as scheduled *Return to ER if you should have increased pain, shortness of breath or any new, worsening or concerning symptoms CONTROLLED SUBSTANCE DISCHARGE (Narcotoic/benzodiazepine/Flexeril/Phenergan) 1. You have been prescribed narcotic medications, it does have acetaminophen/Tylenol/paracetamol in it so do not take extra Tylenol or Tylenol containing products TRAMADOL DOES NOT CONTAIN TYLENOL 2. Please understand that we cannot provide further refills of narcotics, benzodiazepines or controlled substances through the ED and her pain management will need to be through your provider. 3. While on these medications you cannot drive or operate heavy machinery. 4. You cannot sign legal documents or perform any duties such as this. 5. As long as you're taking opiate pain medications he should also be taking a stool softener such as Colace, Dulcolax, MiraLAX or prune juice, to help avoid constipation. Prescriptions: New hydrocodone-acetaminophen 5-325 mg tablet 1 tab PO Q6H PRN (Reason: pain) Qty: 10 RF: 0 No Action metformin 500 mg Tablet 500 mg BID RF: 0 atorvastatin 20 mg Tablet 20 mg PO DAILY RF: 0 benazepril 20 mg Tablet 20 mg BID RF: 0 furosemide 20 mg Tablet 20 mg PO DAILY RF: 0 metoprolol succinate 25 mg Tablet Extended Release 24 Hr 25 mg PO DAILY RF: 0 aspirin 81 mg Tablet,Delayed Release (Dr/Ec) 81 mg PO BID Qty: 90 RF: 0 calcium carbonate-vitamin D3 [Oyster Shell Calcium-Vit D3] 500 mg(1,250mg) - 200 unit Tablet 1 tab PO BIDWM Qty: 60 RF: 0 docusate sodium [DOK] 100 mg Capsule 100 mg PO BID Qty: 60 RF: 0 hydrocodone-acetaminophen 5-325 mg Tablet 1 - 2 tab PO Q4HR PRN (Reason: Pain, Severe (7-10)) Qty: 20 RF: 0 famotidine [Pepcid AC] 20 mg Tablet 20 mg PO BID Qty: 90 RF: 0 ferrous gluconate 324 mg (37.5 mg iron) tablet 324 mg PO DAILY Qty: 30 RF: 0 polyethylene glycol 3350 [Miralax] 17 gram/dose powder 17 g PO DAILY PRN (Reason: constipation) Qty: 119 RF: 0 Referrals: Carlin Loving MD [Physician] - Eryn Molina MD [Primary Care Provider] -
[2020-04-24 19:11] VITALS: BP 195/81; PULSE 74; RESP 16; O2SAT 99
[2020-04-24] MEDS: HYDROCODONE/ACET 5/325 TABLET 1 TAB PO (19:14)
[2020-04-24] MEDS: HYDROCODONE/ACET 5/325 PREPACK 1 BOTTLE MISC (19:14)
== END 2020-04-24 19:25 | disposition home or self-care (01) ==
PROVIDERS: Emergency Provider Emergency Medicine; PCP Internal Medicine
DX: G89.18 Other acute postprocedural pain (principal); E78.5 Hyperlipidemia, unspecified; E11.9 Type 2 diabetes mellitus without complications
CPT/HCPCS: 93971; 99281

== ENCOUNTER → 2020-07-29 09:45 | Outpatient (CLI) | payer MEDICARE, SELFPAY ==
[2020-04-17 05:27] VITALS: BMI 24.2
[2020-07-29 10:33] LABS: Add Manual Diff / Slide Review NO; Basophils Absolute Auto 0 /uL (0-100); Basophils Percent Auto 0.9 % (0-2); Eosinophils Absolute Auto 200 /uL (0-450); Eosinophils Percent Auto 3.2 % (2-4); Hematocrit 31.5 % (36-46); Hemoglobin 10.3 g/dL (12.0-16.0); Lymphocytes Absolute Auto 1800 /uL (1100-4500); Mean Corpuscular HGB Conc 32.8 % (30-36); Mean Corpuscular Hemoglobin 29.4 PG (26-34); Mean Corpuscular Volume 89.6 fL (80-100); Monocytes Absolute Auto 500 /uL (0-900); Monocytes Percent Auto 9.5 % (3-14); Neutrophils Absolute Auto 2500 /uL (1500-7000); Neutrophils Percent Auto 50.4 % (50-75); Platelet Count 249 X10^3/uL (150-400); Red Blood Cell Count 3.51 X10^6/uL (4.0-5.2); Red Cell Distribution Width 13.9 % (11.6-14.8); White Blood Cell Count 4.9 X10^3/uL (4.5-11.0)
[2020-07-29 10:54] LABS: Hemoglobin A1C% w Est Avg Glu 5.6 % (4.0-6.0)
[2020-07-29 11:15] LABS: Alanine Aminotransferase 14 IU/L (<35); Albumin 4.1 g/dL (3.5-5.0); Albumin Globulin Ratio 1.6 (1.0-2.8); Alkaline Phosphatase 112 U/L (38-126); Aspartate Aminotransferase 24 IU/L (14-36); Bilirubin Total 0.3 mg/dL (0.2-1.3); Blood Urea Nitrogen 44 mg/dL (7-17); Carbon Dioxide 25 mmol/L (22-32); Chloride 107 mmol/L (98-107); Cholesterol 142 mg/dL (140-199); Estimated Glomerular Filt Rate 30.7 mL/min (>60); Globulin 2.6 g/dL (1.7-4.1); Glucose 96 mg/dL (80-110); HDL Cholesterol 52 mg/dL (40-60); HEMOLYSIS < 15 (0-50); LDL Cholesterol Calculated 61 mg/dL (<100); Potassium 4.6 mmol/L (3.4-5.1); Sodium 140 mmol/L (137-145); Total Protein 6.7 g/dL (6.3-8.2); Triglycerides 144 mg/dL (35-150)
[2020-07-29 11:39] LABS: Microalbumi Creatinin Ratio Ur 10.7 ug/mg CR (<30); Microalbumin Urine Random 0.6 mg/dL (0-1.6)
[2020-07-29 11:49] LABS: Ferritin 163 ng/mL (11-264)
== END ==
PROVIDERS: PCP Internal Medicine; Referring Provider Internal Medicine; Visit Provider Internal Medicine
DX: E11.9 Type 2 diabetes mellitus without complications (principal); D50.8 Other iron deficiency anemias; E78.2 Mixed hyperlipidemia; I10 Essential (primary) hypertension
CPT/HCPCS: 36415; 80053; 80061; 82043; 82570; 82728; 83036; 85025

== ENCOUNTER → 2021-07-08 08:01 | Outpatient (CLI) | payer MEDICARE, SELFPAY ==
[2020-04-17 05:27] VITALS: BMI 24.2
[2021-07-08 09:57] LABS: Hemoglobin A1C% w Est Avg Glu 5.6 % (4.0-6.0)
[2021-07-08 10:39] LABS: Alanine Aminotransferase 16 IU/L (<35); Albumin 4.7 g/dL (3.5-5.0); Albumin Globulin Ratio 1.7 (1.0-2.8); Alkaline Phosphatase 82 U/L (38-126); Aspartate Aminotransferase 28 IU/L (14-36); BUN Creatinine Ratio 26.2 (6-22); Bilirubin Total 0.7 mg/dL (0.2-1.3); Blood Urea Nitrogen 53 mg/dL (7-17); Calcium 10.3 mg/dL (8.4-10.2); Carbon Dioxide 25 mmol/L (22-32); Chloride 108 mmol/L (98-107); Estimated Glomerular Filt Rate 23.9 mL/min (>60); Globulin 2.8 g/dL (1.7-4.1); Glucose 96 mg/dL (80-110); HEMOLYSIS < 15 (0-50); Potassium 5.1 mmol/L (3.4-5.1); Sodium 141 mmol/L (137-145); Total Protein 7.5 g/dL (6.3-8.2)
== END ==
PROVIDERS: PCP Internal Medicine; Referring Provider Internal Medicine; Visit Provider Internal Medicine
DX: E11.9 Type 2 diabetes mellitus without complications (principal); E83.52 Hypercalcemia; N18.32 Chronic kidney disease, stage 3b
CPT/HCPCS: 36415; 80053; 83036

== ENCOUNTER → 2022-12-28 11:09 | Outpatient (CLI) | payer MEDICARE, SELFPAY ==
[2020-04-17 05:27] VITALS: BMI 24.2
[2022-12-28 13:10] LABS: Hematocrit 35.5 % (36-46); Hemoglobin 12.1 g/dL (12.0-16.0)
[2022-12-28 13:21] LABS: BUN Creatinine Ratio 20.5 (6-22); Blood Urea Nitrogen 40 mg/dL (7-17); Carbon Dioxide 23 mmol/L (22-32); Chloride 105 mmol/L (98-107); Estimated Glomerular Filt Rate 26 mL/min (>60); Glucose 78 mg/dL (80-110); HEMOLYSIS < 15 (0-50); Sodium 137 mmol/L (137-145)
[2022-12-28 13:24] LABS: Potassium 5.5 mmol/L (3.4-5.1)
[2022-12-28 17:26] LABS: Creatinine Urine Random 38.7 mg/dL; Protein (Total) Urine Random 11 mg/dL (0-12); Protein Creatinine Ratio Urine 0.28 GRAM/24H
== END ==
PROVIDERS: PCP Internal Medicine; Referring Provider Student in an Organized Health Care Education/Training Program; Visit Provider Student in an Organized Health Care Education/Training Program
DX: N05.9 Unspecified nephritic syndrome with unspecified morphologic changes (principal); D64.9 Anemia, unspecified; R80.9 Proteinuria, unspecified
CPT/HCPCS: 36415; 80048; 82570; 84156; 85014; 85018

== ENCOUNTER → 2023-01-02 07:33 | Outpatient (CLI) | payer MEDICARE, SELFPAY ==
[2020-04-17 05:27] VITALS: BMI 24.2
[2023-01-02 09:30] LABS: BUN Creatinine Ratio 21.1 (6-22); Blood Urea Nitrogen 35 mg/dL (7-17); Carbon Dioxide 25 mmol/L (22-32); Chloride 105 mmol/L (98-107); Estimated Glomerular Filt Rate 31 mL/min (>60); Glucose 104 mg/dL (80-110); HEMOLYSIS < 15 (0-50); Potassium 4.9 mmol/L (3.4-5.1); Sodium 138 mmol/L (137-145)
== END ==
PROVIDERS: PCP Internal Medicine; Referring Provider Student in an Organized Health Care Education/Training Program; Visit Provider Student in an Organized Health Care Education/Training Program
DX: N05.9 Unspecified nephritic syndrome with unspecified morphologic changes (principal)
CPT/HCPCS: 36415; 80048

== ENCOUNTER → 2023-01-30 12:56 | Outpatient (CLI) | payer MEDICARE, SELFPAY ==
[2020-04-17 05:27] VITALS: BMI 24.2
--- NOTE | 2023-01-30 | DI.US.S_ITS ---
PROCEDURE: US RENAL COMPLETE INDICATIONS: CHRONIC KIDNEY DISEASE, STAGE 3 TECHNIQUE: Real-time scanning was performed of the kidneys and bladder, with image documentation. COMPARISON: None. FINDINGS: Kidneys: Kidneys are normal in size. Right kidney measures 7.2 cm long; left kidney measures 8.8 cm long. Right renal cortical thickness is 1.1 cm; left renal cortical thickness is 1.0 cm. Renal cortical echotexture is normal. No hydronephrosis or nephrolithiasis. No suspicious solid mass lesions. There is a simple right renal parapelvic cyst. Bladder: Pre-void bladder volume is 100.1 mL. Post-void residual is 3.7 mL. Pre-void images demonstrate no intraluminal masses or stones. On pre-void images, bilateral ureteral jets are noted with color Doppler interrogation. (Of note, ureteral jets may not be detectable in up to 25% of cases due to insufficient differences in specific gravity between ureteral and bladder urine). Miscellaneous: No free pelvic fluid. IMPRESSION: Simple right renal cyst. Bilateral renal atrophy. No hydronephrosis or significant postvoid residual. Dictated by: Myrna Sauer M.D. on 01/30/2023 at 15:03 Approved by: Myrna Sauer M.D. on 01/30/2023 at 15:05
== END ==
PROVIDERS: PCP Internal Medicine; Referring Provider Student in an Organized Health Care Education/Training Program; Visit Provider Student in an Organized Health Care Education/Training Program
DX: N18.32 Chronic kidney disease, stage 3b (principal); N28.1 Cyst of kidney, acquired; N26.1 Atrophy of kidney (terminal)
CPT/HCPCS: 76770

== ENCOUNTER → 2023-02-19 15:34 | Outpatient (CLI) | payer MEDICARE, SELFPAY ==
[2020-04-17 05:27] VITALS: BMI 24.2
[2023-02-19 18:28] LABS: Hematocrit 37.6 % (36-46); Hemoglobin 12.7 g/dL (12.0-16.0)
[2023-02-19 18:35] LABS: Appearance Urine UA CLEAR; Bilirubin Urine UA NEGATIVE (NEGATIVE); Color Urine UA YELLOW; Glucose Urine UA NEGATIVE (Negative); Ketones Urine UA NEGATIVE (NEGATIVE); Leukocyte Esterase Urine UA NEGATIVE (NEGATIVE); Nitrite Urine UA NEGATIVE (Negative); Occult Blood Urine UA NEGATIVE (Negative); Protein Urine UA NEGATIVE (Negative); Specific Gravity Urine UA <=1.005 (1.000-1.035); Urobilinogen Urine UA 0.2 E.U./dL (0.2)
[2023-02-19 18:39] LABS: BUN Creatinine Ratio 22.9 (6-22); Blood Urea Nitrogen 43 mg/dL (7-17); Carbon Dioxide 23 mmol/L (22-32); Chloride 102 mmol/L (98-107); Estimated Glomerular Filt Rate 27 mL/min (>60); Glucose 84 mg/dL (80-110); HEMOLYSIS 17 (0-50); Potassium 3.8 mmol/L (3.4-5.1); Sodium 136 mmol/L (137-145)
[2023-02-19 18:46] LABS: Bacteria Urine None Seen; Culture Indicated Urine Cult Not Indicated; RBC Urine None Seen (0-5/HPF); Squamous Epithelial Cell Urine None Seen (0-5/HPF); WBC Urine None Seen (0-5/HPF)
[2023-02-19 19:14] LABS: Creatinine Urine Random 20.6 mg/dL; Protein (Total) Urine Random 11 mg/dL (0-12); Protein Creatinine Ratio Urine 0.53 GRAM/24H
[2023-02-22 06:39] LABS: Parathyroid Hormone Int 126 pg/mL (15-65)
== END ==
PROVIDERS: PCP Internal Medicine; Referring Provider Student in an Organized Health Care Education/Training Program; Visit Provider Student in an Organized Health Care Education/Training Program
DX: D64.9 Anemia, unspecified (principal); N05.9 Unspecified nephritic syndrome with unspecified morphologic changes; E83.30 Disorder of phosphorus metabolism, unspecified; N25.81 Secondary hyperparathyroidism of renal origin; N30.00 Acute cystitis without hematuria; R80.9 Proteinuria, unspecified
CPT/HCPCS: 36415; 80048; 81001; 82570; 83970; 84100; 84156; 85014; 85018

== ENCOUNTER → 2023-03-30 11:00 | Outpatient (CLI) | payer MEDICARE, SELFPAY ==
[2020-04-17 05:27] VITALS: BMI 24.2
[2023-03-30 12:12] LABS: NT-proBNP (BNP-Adult 18+) 864 pg/mL (<450)
[2023-04-01 11:48] LABS: Parathyroid Hormone Int 74 pg/mL (15-65)
== END ==
PROVIDERS: PCP Internal Medicine; Referring Provider Student in an Organized Health Care Education/Training Program; Visit Provider Student in an Organized Health Care Education/Training Program
DX: I50.32 Chronic diastolic (congestive) heart failure (principal); N25.81 Secondary hyperparathyroidism of renal origin
CPT/HCPCS: 36415; 83880; 83970

== ENCOUNTER → 2023-05-24 12:03 | Outpatient (CLI) | payer MEDICARE, OTHER, SELFPAY ==
[2020-04-17 05:27] VITALS: BMI 24.2
[2023-05-24 13:25] LABS: BUN Creatinine Ratio 20.2 (6-22); Blood Urea Nitrogen 35 mg/dL (7-17); Calcium 10.3 mg/dL (8.4-10.2); Carbon Dioxide 22 mmol/L (22-32); Chloride 106 mmol/L (98-107); Estimated Glomerular Filt Rate 30 mL/min (>60); Glucose 83 mg/dL (80-110); HEMOLYSIS < 15 (0-50); Potassium 4.5 mmol/L (3.4-5.1); Sodium 136 mmol/L (137-145)
[2023-05-24 16:23] LABS: Creatinine Urine Random 38.1 mg/dL; Protein (Total) Urine Random 12 mg/dL (0-12); Protein Creatinine Ratio Urine 0.31 GRAM/24H
== END ==
PROVIDERS: PCP Internal Medicine; Referring Provider Student in an Organized Health Care Education/Training Program; Visit Provider Student in an Organized Health Care Education/Training Program
DX: N05.9 Unspecified nephritic syndrome with unspecified morphologic changes (principal); R80.9 Proteinuria, unspecified
CPT/HCPCS: 36415; 80048; 82570; 84156

== ENCOUNTER → 2023-06-14 11:45 | Outpatient (CLI) | payer MEDICARE, OTHER, SELFPAY ==
[2020-04-17 05:27] VITALS: BMI 24.2
--- NOTE | 2023-06-14 11:46 | DI.RAD.S_ITS ---
Bone Density Report Name: ZACK CARBAJAL Age: 77 Sex: Female Ethnicity: White Date of : 1945 Indication: postmenopausal; screening for osteoporosis; prior fracture; Referring Provider: SILAS BAUTISTA Study: Bone densitometry was performed. Exam Date: June 14, 2023 Accession number: [id number] Bone Density: Region BMD T-score Z-score Classification AP Spine(L1-L4) 1.308 2.4 5.0 Normal Femoral Neck (Left) 0.605 -2.2 0.1 Osteopenia Total Hip (Left) 0.744 -1.6 0.4 Osteopenia Total Forearm (Left) 0.487 -1.7 1.2 Osteopenia 1/3 Forearm (Left) 0.566 -2.1 0.9 Osteopenia UD Forearm (Left) 0.401 -0.7 1.5 Normal World Health Organization criteria for BMD impression classify patients as: Normal (T-score at or above -1.0), Osteopenia (T-score between -1.0 and -2.5), or Osteoporosis (T-score at or below -2.5). 10-year Fracture Risk: FRAX not reported because: Prior hip or vertebral fracture Previous Exams: -- Region Exam Age BMD T-score BMD Change BMD Change Date g/cm2 vs Baseline vs Previous -- AP Spine (L1-L4) 06/14/2023 77 1.308 2.4 -0.008 (-0.6%)# -0.018 (-1.4%)# 01/14/2020 74 1.326 2.5 0.010 (0.8%) -0.026 (-1.9%)* 08/20/2018 72 1.352 2.8 0.037 (2.8%)* 0.037 (2.8%)* 06/30/2005 59 1.315 2.4 Total Hip(Left) 06/14/2023 77 0.744 -1.6 -0.260 (-25.9%)# -0.087 (-10.5%)# 01/14/2020 74 0.831 -0.9 -0.173 (-17.2%)* 0.011 (1.4%) 08/20/2018 72 0.820 -1.0 -0.184 (-18.3%)* -0.184 (-18.3%)* 06/30/2005 59 1.003 0.5 -- *Denotes significance at 95% confidence level, LSC for AP Spine = 0.022 g/cm2, LSC for Total Hip = 0.027 g/cm2 # Denotes dissimilar scan types or analysis methods Impression: The patient has low bone mass, based on the Left Femoral Neck T-score. The patient has risk factors, including: previous fracture. No significant bone loss was observed. Discussion: INCREASED RISK OF FRACTURE DUE TO HISTORY OF FRACTURE. The patient's previous fracture puts the patient at high risk of a future fracture. In untreated patients, the risk of osteoporotic fracture increases approximately two-fold for each 1.0 SD decrease in T-score. Low bone density is not the only risk factor for fracture; also consider factors such as patient's age, frailty or poor health, risk of falling, risk of injury, previous osteoporotic fracture, family history of osteoporosis, cigarette smoking, low body weight, etc. Not everyone with a low trauma fracture has osteoporosis; osteomalacia and other metabolic bone disorders should also be considered. Patients who have osteoporosis should be evaluated for specific diseases and conditions (secondary causes) that may cause or contribute to bone loss and fracture risk. National Osteoporosis Foundation (NOF) recommends pharmacologic intervention for patients with a prior hip or vertebral fracture regardless of BMD T-score. The patient should follow a healthful lifestyle (good nutrition with adequate calcium and vitamin D, and appropriate weight-bearing exercise). Follow-Up: Consider a repeat BMD and Vertebral Fracture Assessment (VFA) exam in 2 years or sooner if medically necessary, to reassess this patient's status. Reported by: MELBA CHERY M.D. on 06/14/2023 12:14:00 PM.
== END ==
PROVIDERS: PCP Internal Medicine; Referring Provider Internal Medicine; Visit Provider Internal Medicine
DX: M85.852 Other specified disorders of bone density and structure, left thigh (principal); Z78.0 Asymptomatic menopausal state
CPT/HCPCS: 77080; 77081

== ENCOUNTER → 2023-07-16 14:40 | Outpatient (CLI) | payer MEDICARE, OTHER, SELFPAY ==
[2020-04-17 05:27] VITALS: BMI 24.2
[2023-07-16 15:05] LABS: Hematocrit 36.6 % (36-46); Hemoglobin 12.2 g/dL (12.0-16.0)
[2023-07-16 15:25] LABS: BUN Creatinine Ratio 17.8 (6-22); Blood Urea Nitrogen 31 mg/dL (7-17); Calcium 9.6 mg/dL (8.4-10.2); Carbon Dioxide 24 mmol/L (22-32); Chloride 108 mmol/L (98-107); Estimated Glomerular Filt Rate 29 mL/min (>60); Glucose 106 mg/dL (80-110); HEMOLYSIS < 15 (0-50); Potassium 4.6 mmol/L (3.4-5.1); Sodium 140 mmol/L (137-145)
[2023-07-16 15:49] LABS: Creatinine Urine Random 49.9 mg/dL; Protein (Total) Urine Random 9 mg/dL (0-12); Protein Creatinine Ratio Urine 0.18 GRAM/24H
[2023-07-18 10:11] LABS: Parathyroid Hormone Int 78 pg/mL (15-65)
== END ==
LOC: LAB 14:44
PROVIDERS: PCP Internal Medicine; Referring Provider Student in an Organized Health Care Education/Training Program; Visit Provider Student in an Organized Health Care Education/Training Program
DX: N05.9 Unspecified nephritic syndrome with unspecified morphologic changes (principal); D70.9 Neutropenia, unspecified; D63.1 Anemia in chronic kidney disease; N25.81 Secondary hyperparathyroidism of renal origin; R80.9 Proteinuria, unspecified
CPT/HCPCS: 36415; 80048; 82570; 83970; 84156; 85014; 85018

== ENCOUNTER → 2024-01-18 11:49 | Outpatient (CLI) | payer MEDICARE, OTHER, SELFPAY ==
[2020-04-17 05:27] VITALS: BMI 24.2
[2024-01-18 12:22] LABS: Hemoglobin 12.8 g/dL (12.0-16.0)
[2024-01-18 12:43] LABS: BUN Creatinine Ratio 16.7 (6-22); Blood Urea Nitrogen 29 mg/dL (7-17); Calcium 9.8 mg/dL (8.4-10.2); Carbon Dioxide 24 mmol/L (22-32); Chloride 104 mmol/L (98-107); Estimated Glomerular Filt Rate 29 mL/min (>60); Glucose 92 mg/dL (80-110); HEMOLYSIS < 15 (0-50); Potassium 4.5 mmol/L (3.4-5.1); Sodium 138 mmol/L (137-145)
[2024-01-18 14:19] LABS: Creatinine Urine Random 115.96 mg/dL; Protein (Total) Urine Random 6 mg/dL (0-12); Protein Creatinine Ratio Urine 0.05 GRAM/24H
[2024-01-20 08:11] LABS: Parathyroid Hormone Int 86 pg/mL (15-65)
== END ==
PROVIDERS: PCP Internal Medicine; Referring Provider Student in an Organized Health Care Education/Training Program; Visit Provider Student in an Organized Health Care Education/Training Program
DX: N05.9 Unspecified nephritic syndrome with unspecified morphologic changes (principal); D70.9 Neutropenia, unspecified; D63.1 Anemia in chronic kidney disease; R80.9 Proteinuria, unspecified; N25.81 Secondary hyperparathyroidism of renal origin
CPT/HCPCS: 36415; 80048; 82570; 83970; 84156; 85014; 85018

== ENCOUNTER → 2024-09-11 11:37 | Outpatient (CLI) | payer MEDICARE, OTHER, SELFPAY ==
[2020-04-17 05:27] VITALS: BMI 24.2
[2024-09-11 12:21] LABS: Hematocrit 37.6 % (36-46)
[2024-09-11 12:43] LABS: BUN Creatinine Ratio 20.5 (6-22); Blood Urea Nitrogen 34 mg/dL (7-17); Calcium 10.4 mg/dL (8.4-10.2); Carbon Dioxide 24 mmol/L (22-32); Chloride 104 mmol/L (98-107); Estimated Glomerular Filt Rate 31 mL/min (>60); Glucose 79 mg/dL (70-99); HEMOLYSIS < 15 (0-50); Potassium 4.6 mmol/L (3.4-5.1); Sodium 138 mmol/L (137-145)
[2024-09-11 14:36] LABS: Creatinine Urine Random 65.49 mg/dL; Protein (Total) Urine Random 11 mg/dL (0-12); Protein Creatinine Ratio Urine 0.16 GRAM/24H
[2024-09-12 08:36] LABS: Parathyroid Hormone Int 69 pg/mL (15-65)
== END ==
LOC: LAB 11:38
PROVIDERS: PCP Internal Medicine; Referring Provider Student in an Organized Health Care Education/Training Program; Visit Provider Student in an Organized Health Care Education/Training Program
DX: N05.9 Unspecified nephritic syndrome with unspecified morphologic changes (principal); D70.9 Neutropenia, unspecified; D63.1 Anemia in chronic kidney disease; N25.81 Secondary hyperparathyroidism of renal origin; R80.9 Proteinuria, unspecified
CPT/HCPCS: 36415; 80048; 82570; 83970; 84156; 85014; 85018

== ENCOUNTER → 2024-11-06 11:57 | Outpatient (CLI) | payer MEDICARE, OTHER, SELFPAY ==
[2020-04-17 05:27] VITALS: BMI 24.2
[2024-11-06 13:07] LABS: Hematocrit 36.0 % (36-46); Hemoglobin 12.5 g/dL (12.0-16.0)
[2024-11-06 13:32] LABS: Blood Urea Nitrogen 26 mg/dL (7-17); Calcium 8.8 mg/dL (8.4-10.2); Carbon Dioxide 25 mmol/L (22-32); Chloride 100 mmol/L (98-107); Estimated Glomerular Filt Rate 36 mL/min (>60); Glucose 120 mg/dL (70-99); HEMOLYSIS < 15 (0-50); Potassium 4.6 mmol/L (3.4-5.1); Sodium 136 mmol/L (137-145)
[2024-11-06 15:21] LABS: Protein (Total) Urine Random 16 mg/dL (0-12); Protein Creatinine Ratio Urine 0.35 GRAM/24H
== END ==
PROVIDERS: PCP Internal Medicine; Referring Provider Student in an Organized Health Care Education/Training Program; Visit Provider Student in an Organized Health Care Education/Training Program
DX: D70.9 Neutropenia, unspecified (principal); N05.9 Unspecified nephritic syndrome with unspecified morphologic changes; R80.9 Proteinuria, unspecified; D63.1 Anemia in chronic kidney disease; N25.81 Secondary hyperparathyroidism of renal origin
CPT/HCPCS: 36415; 80048; 82570; 83970; 84156; 85014; 85018

== ENCOUNTER → 2024-12-04 13:12 | Outpatient (CLI) | payer MEDICARE, OTHER, SELFPAY ==
[2020-04-17 05:27] VITALS: BMI 24.2
--- NOTE | 2024-12-04 13:15 | DI.RAD.S_ITS ---
PROCEDURE: XR LUMBAR SPINE MIN 4V INDICATIONS: BACK PAIN TECHNIQUE: 5 views of the lumbar spine acquired, including flexion and extension views. COMPARISON: [facility], , L-SPINE 2-3 VIEWS, 11/15/2015, 14:38. FINDINGS: Lumbar spine curvature and alignment: Normal. Bones: There are no osseous abnormalities. Disc spaces: Mild T9-10 through T12-L1 L4-5 degenerative disc disease noted. Moderate L4-5 and L5-S1 degenerative facet disease Soft tissues: No soft tissue swelling, calcification or mass. IMPRESSION: Degeneration Dictated by: Mehul Mendes M.D. on 12/05/2024 at 13:42 Approved by: Mehul Mendes M.D. on 12/05/2024 at 13:43
== END ==
PROVIDERS: PCP Internal Medicine; Referring Provider Internal Medicine; Visit Provider Physical Medicine & Rehabilitation
DX: M51.34 Other intervertebral disc degeneration, thoracic region (principal); M51.369 Other intervertebral disc degeneration, lumbar region without mention of lumbar back pain or lower extremity pain; M47.816 Spondylosis without myelopathy or radiculopathy, lumbar region; M47.817 Spondylosis without myelopathy or radiculopathy, lumbosacral region; M54.9 Dorsalgia, unspecified
CPT/HCPCS: 72110

== ENCOUNTER 2025-04-02 10:45 | Outpatient (RCR) | payer MEDICARE, OTHER, SELFPAY ==
[2020-04-17 05:27] VITALS: BMI 24.2
--- NOTE | 2025-03-02 10:47 | PT.OPPOC ---
Physical, Occupational & Speech Therapy At [facility] Current Diagnoses Other bursitis of hip, left hip (03/02/25) Visit Care Team Role Provider Type Eryn Molina MD Primary Care Provider Physician Specialty: Internal Medicine Address: [address] [place] [address], [facility] [place], [address] Email: George Sánchez DO Attending Provider Physician Referring Provider Specialty: Interventional Radiology Physiatry Pain Management Address: [address] [place] [address], [address] Phone: Fax: Email: [email or web address] Plan Of Care PT OP: Lower Back/Lower Extremity Start: 03/02/25 09:39 Freq: Status: Active Protocol: Document 03/02/25 09:40 DAVID (Rec: 03/02/25 10:46 DAVID [id number]) Out-Patient Physical Therapy Visit Information Visit Information Visit Type Initial Evaluation Visit Start Time 09:45 Visit Stop Time 10:30 Visit Number 1 Number of PARALEGAL ASSISTANT Visits 0 Progress Note Due 04/01/25 OP-PT Subjective Patient Comments Patient Comments History of current diagnosis: Patient reports she has L hip pain that stared in May of this year when she was taking a long flight back from [place]. She reports she has had pain in this area before after she fell down the steps on her buttocks. She reports she has a history of a R hip fracture and ORIF. She reports that since May her symptoms have not gotten worse but have not gotten better. She reports she struggles to sit down for any extended periods. 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 Physical activities/ hobbies: Walks daily (with dog) for about 10-15 minutes Pain location: Base of glute - ischial tuberosity region Pain description: Dull Pain 0-10/10 (current): 2/10 Pain 0-10/10 (worst): 3/10 - up to a 6/10 when sitting for an extended period Pain 0-10/10 (best): 2/10 Aggravating: Sitting for extended periods (worse on hard surfaces) Alleviating: OTC pain meds, sitting more on R side of buttocks, heat Function prior to injury: Independent with all ADLs Function current: Independent with all ADLs - limited with sitting for extended periods Patient goals: Ride on plane to [place] with no terrible pain Patient Questionnaires Lower Extremity Functional Scale LEFS Score 45 LEFS Impairment 40 to 59% Impaired (Score 32-47) Palpation Assessment Location One Palpation Location L ischial tuberosity Palpation Findings Tenderness Hip Goniometric Range of Motion Hip Measured in Degrees Right Active Flexion w/Knee 110 Flexed Straight Leg Raise 90 Comments PROM: Flexion: 120 Abduction: 25 ER: 15 20 IR: Left Active Flexion w/Knee 110 Flexed Straight Leg Raise 90 Comments PROM: Flexion: 120 Abduction: 25 ER: 45 IR: 20 Hip Strength Hip Manual Muscle Testing Right Flexion (L2) 4 Good Extension (S1) 4 Good Abduction 4 Good Comments R knee flexion MMT: 4/5 Left Flexion (L2) 4 Good Extension (S1) 3+ Fair+ Abduction 4 Good Comments L knee flexion MMT: 3+/5 Physical Therapy Assessment Rehab Potential Rehabilitation Good Potential Evaluation Complexity Number of Personal 0 Factors/ Comorbidities Number of Body 1-2 Systems Impaired Clinical Stable Presentation at Evaluation Impairments Impairments Activity Tolerance,Coordination,Functional Activities, Functional Mobility,Gait,Pain,Posture,ROM,Strength, Transfers Goals Three Impairment Sitting tolerance Short Term Goal (STG Patient will report sitting for >90 minutes with no ) more than a 1 point increase in pain levels. STG Duration 4 weeks Stock Mover Goal (LTG) Patient will report sitting for >120 minutes with no more than a 1 point increase in pain levels. LTG Duration 8 weeks Two Impairment General LE function Short Term Goal (STG Patient will demonstrate an increase in LEFS score to a ) 53 in order to show an increase in self-perceived function. STG Duration 4 weeks Residential Goal (LTG) Patient will demonstrate an increase in LEFS score to a 61 in order to show an increase in self-perceived function. LTG Duration 8 weeks One Impairment Pain intensity Short Term Goal (STG Patient will report a reduction in pain at worst of a 4 ) /10 in order to better tolerate siting for extended periods. STG Duration 4 weeks Stock Mover Goal (LTG) Patient will report a reduction in pain at worst of a 2 /10 in order to better tolerate siting for extended periods. LTG Duration 8 weeks Assessment Summary Assessment Patient presenting to PT with complaints of L posterior hip pain that is limiting function with sitting for extended periods. Objective investigation revealed deficits in L knee and hip strength (see objective measures: knee flexion MMT, hip extension MMT), and tenderness to palpation of L ischial tuberosity. 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 Physical Therapy Plan Frequency and Duration Frequency of 2x/Week Treatment Duration of 12 treatment (weeks) Plan of Care Start 03/02/25 Date Plan of Care End 05/31/25 Date Therapeutic Interventions Therapeutic Aquatic Therapy,Balance Training,Coordination Training, Interventions Gait Training,Home Exercise Program,Joint Mobilizations ,Manual Therapy,Neuromuscular Re-education,Patient/ Caregiver Education,Self-Care/Home Management,Soft Tissue Mobilization,Taping,Therapeutic Activities, Therapeutic Exercises Modalities Biofeedback,Cold Pack/Ice Massage,Electric Stimulation, Hot Packs,Infrared Therapy,Iontophoresis,Ultrasound, Vasopneumatic Devices Next Visit Focus/Plan Next Note Type Treatment Note Next Visit Plan Initiate plan of care with focus on proximal hamstring tendon re-loading. Current HEP: Supine bridges Hip hinge hip extension Standing band knee flexion Standing hip hinge Plan of Care Dates Plan of Care Start Date 03/02/25 Plan of Care End Date 05/31/25 Electronically Signed by: Melvina Noble, PT 03/02/25 5623 If you are in agreement with this Plan of Care, please return a signed and dated copy. I have reviewed this Plan of Care and certify that the skilled therapy services above are required to meet the patient?s needs. Physician Signature Date Printed Name and Credentials Clinical Instructor Signature Printed Name and Credentials
--- NOTE | 2025-03-10 11:33 | PT.OTN ---
Current Diagnoses Other bursitis of hip, left hip (03/10/25) Physical Therapy Treatment Note PT OP: Lower Back/Lower Extremity Start: 03/02/25 09:39 Freq: Status: Active Protocol: Document 03/10/25 10:41 DAVID (Rec: 03/10/25 11:32 DAVID [id number]) Out-Patient Physical Therapy Visit Information Visit Information Visit Type Treatment Note Visit Start Time 10:48 Visit Stop Time 11:28 Visit Number 2 Number of NUCLEAR ENGINEER Visits 0 Progress Note Due 04/01/25 OP-PT Subjective Patient Comments Patient Comments Patient reports she has been doing her home exercises. Current pain level is a 1/10. Therapeutic Exercises Supine Exercises Leg press Resistance 75# Reps/Minutes 3x10 Hip bridge Reps/Minutes 3x10 Comments Feet distal for hamstring bias Sitting Exercises Hamstring curl machine Resistance 20# Reps/Minutes 3x10 Standing Exercises Sit to stand Equipment Used 2x10 Comments Cues for hip-dominant pattern Standing hip hinge Reps/Minutes 3x10 Comments Cues for posterior hip translation Bent over hip extension Reps/Minutes x15 each side Physical Therapy Assessment Goals Three Impairment Sitting tolerance Short Term Goal (STG Patient will report sitting for >90 minutes with no ) more than a 1 point increase in pain levels. STG Duration 4 weeks Dredge Mate Goal (LTG) Patient will report sitting for >120 minutes with no more than a 1 point increase in pain levels. LTG Duration 8 weeks Two Impairment General LE function Short Term Goal (STG Patient will demonstrate an increase in LEFS score to a ) 53 in order to show an increase in self-perceived function. STG Duration 4 weeks Dredge Mate Goal (LTG) Patient will demonstrate an increase in LEFS score to a 61 in order to show an increase in self-perceived function. LTG Duration 8 weeks One Impairment Pain intensity Short Term Goal (STG Patient will report a reduction in pain at worst of a 4 ) /10 in order to better tolerate siting for extended periods. STG Duration 4 weeks Dredge Mate Goal (LTG) Patient will report a reduction in pain at worst of a 2 /10 in order to better tolerate siting for extended periods. LTG Duration 8 weeks Assessment Summary Assessment Treatment was initiated with focus on proximal hamstring tendon loading using pain monitoring model. Patient tolerated treatment well with no more than a 2/ 10 pain during session. Plan next session to follow up on response to today's session and progress loading pending positive response and no lingering soreness after 48 hours Physical Therapy Plan Frequency and Duration Frequency of 2x/Week Treatment Duration of 12 treatment (weeks) Plan of Care Start 03/02/25 Date Plan of Care End 05/31/25 Date Next Visit Focus/Plan Next Note Type Treatment Note Next Visit Plan Continue with plan of care with focus on proximal hamstring tendon re-loading. Current HEP: Supine bridges Hip hinge hip extension Standing band knee flexion Standing hip hinge
--- NOTE | 2025-03-12 11:34 | PT.OTN ---
Current Diagnoses Other bursitis of hip, left hip (03/12/25) Physical Therapy Treatment Note PT OP: Lower Back/Lower Extremity Start: 03/02/25 09:39 Freq: Status: Active Protocol: Document 03/12/25 10:56 SP (Rec: 03/12/25 11:36 SP [id number]) Out-Patient Physical Therapy Visit Information Visit Information Visit Type Treatment Note Visit Start Time 10:56 Visit Stop Time 11:34 Visit Number 3 Number of SCHOOL HEALTH ASSISTANT Visits 1 Progress Note Due 04/01/25 OP-PT Subjective Patient Comments Patient Comments Pt reports was little sore/achiness across low back after last tx and slight into next day. Pt states has to use BUEs to help her leg in/out car, feels very weak , would like to know if there is an exercises that can help this get better. Therapeutic Exercises Supine Exercises Leg press Resistance 75# Equipment Used wedge on sled fwd approx 6-8 Reps/Minutes 3x10 Comments cued eccentric control last reps each set-good quad tiring Sitting Exercises Hip Flexion /c Abduction Sitting Exercise added to HEP with HO Name Side bilateral Equipment Used life leg over side wooden wedge Reps/Minutes 8-10 reps each side Comments *assimulate lifting leg into car Hamstring curl machine Sitting Exercise added to HEP with HO Name Side bilateral Resistance TB #2 teal (provided for home carryover)- a nchored on post/table leg Equipment Used small 2 wedge under opp LE for stability Reps/Minutes 3x10 each LE Standing Exercises Sit to stand Resistance arms across chest Equipment Used mesh chair Reps/Minutes 2x10 Comments Cues for hip-dominant pattern Standing hip hinge Equipment Used rail contact, chair behind taps to Reps/Minutes 3x10 Comments Cues for posterior hip translation Bent over hip extension Equipment Used forearms on //bars then elevated table (counter home) Reps/Minutes 2x15 each side Physical Therapy Assessment Goals Three Impairment Sitting tolerance Short Term Goal (STG Patient will report sitting for >90 minutes with no ) more than a 1 point increase in pain levels. STG Duration 4 weeks Shipping Technician Goal (LTG) Patient will report sitting for >120 minutes with no more than a 1 point increase in pain levels. LTG Duration 8 weeks Two Impairment General LE function Short Term Goal (STG Patient will demonstrate an increase in LEFS score to a ) 53 in order to show an increase in self-perceived function. STG Duration 4 weeks Shelter Goal (LTG) Patient will demonstrate an increase in LEFS score to a 61 in order to show an increase in self-perceived function. LTG Duration 8 weeks One Impairment Pain intensity Short Term Goal (STG Patient will report a reduction in pain at worst of a 4 ) /10 in order to better tolerate siting for extended periods. STG Duration 4 weeks Shipping Technician Goal (LTG) Patient will report a reduction in pain at worst of a 2 /10 in order to better tolerate siting for extended periods. LTG Duration 8 weeks Assessment Summary Assessment Pt good tolerance to addition of compound hip flexion with abduction to strength movement less UE support to get her leg in/out car, good tiring ex reported stepping over elevated wedge block in PT today. Instructed resisted hamstring curl today to assist carryover home strengthening, discussed can anchor tie onto heavy table or in a door, good feedback tiring. Cues for hip hinge STS, was ableto complete with out UE support and just tap chair vs full sit today, boy this is little harder, but good tiring work. Physical Therapy Plan Frequency and Duration Frequency of 2x/Week Treatment Duration of 12 treatment (weeks) Plan of Care Start 03/02/25 Date Plan of Care End 05/31/25 Date Therapeutic Interventions Therapeutic Aquatic Therapy,Balance Training,Coordination Training, Interventions Gait Training,Home Exercise Program,Joint Mobilizations ,Manual Therapy,Neuromuscular Re-education,Patient/ Caregiver Education,Self-Care/Home Management,Soft Tissue Mobilization,Taping,Therapeutic Activities, Therapeutic Exercises Modalities Biofeedback,Cold Pack/Ice Massage,Electric Stimulation, Hot Packs,Infrared Therapy,Iontophoresis,Ultrasound, Vasopneumatic Devices Next Visit Focus/Plan Next Note Type Treatment Note Next Visit Plan Continue with plan of care with focus on proximal hamstring tendon re-loading. Current HEP: Supine bridges Hip hinge hip extension Standing band knee flexion Standing hip hinge
--- NOTE | 2025-03-17 11:28 | PT.OTN ---
Current Diagnoses Other bursitis of hip, left hip (03/17/25) Physical Therapy Treatment Note PT OP: Lower Back/Lower Extremity Start: 03/02/25 09:39 Freq: Status: Active Protocol: Document 03/17/25 10:42 DAVID (Rec: 03/17/25 11:28 DAVID [id number]) Out-Patient Physical Therapy Visit Information Visit Information Visit Type Treatment Note Visit Start Time 10:45 Visit Stop Time 11:25 Visit Number 4 Number of UNIVERSAL BANKER Visits 1 Progress Note Due 04/01/25 OP-PT Subjective Patient Comments Patient Comments Patient reports she has no back pain today but does have a bit of a headache. Therapeutic Exercises Supine Exercises Leg press Resistance 75# Equipment Used wedge on sled fwd approx 6-8 Reps/Minutes 3x10 Hip bridge Reps/Minutes x10 bilateral, 2x10 unilateral L Comments Feet distal for hamstring bias Sitting Exercises Seated hip hinge Resistance 10# Reps/Minutes 3x10 Comments Feet away from chair Hamstring curl machine Resistance 20# Reps/Minutes 3x10 Standing Exercises SLDL Standing Exercise Single leg deadlift, contralateral kickstand (B-stance) Name Equipment Used R UE support Reps/Minutes 2x10 Sit to stand Equipment Used mesh chair Reps/Minutes 2x10 Comments Cues for hip-dominant pattern Standing hip hinge Resistance 10#, tap to first 6 step Reps/Minutes 3x10 Comments Cues for posterior hip translation Physical Therapy Assessment Goals Three Impairment Sitting tolerance Short Term Goal (STG Patient will report sitting for >90 minutes with no ) more than a 1 point increase in pain levels. STG Duration 4 weeks Lasting Machine Operator Goal (LTG) Patient will report sitting for >120 minutes with no more than a 1 point increase in pain levels. LTG Duration 8 weeks Two Impairment General LE function Short Term Goal (STG Patient will demonstrate an increase in LEFS score to a ) 53 in order to show an increase in self-perceived function. STG Duration 4 weeks [facility] Goal (LTG) Patient will demonstrate an increase in LEFS score to a 61 in order to show an increase in self-perceived function. LTG Duration 8 weeks One Impairment Pain intensity Short Term Goal (STG Patient will report a reduction in pain at worst of a 4 ) /10 in order to better tolerate siting for extended periods. STG Duration 4 weeks Lasting Machine Operator Goal (LTG) Patient will report a reduction in pain at worst of a 2 /10 in order to better tolerate siting for extended periods. LTG Duration 8 weeks Assessment Summary Assessment Treatment focused on proximal hamstring loading. Patient tolerated treatment well with no lasting increases in symptoms. She noted some increased pain with seated hip hinges so plan to follow up on this next session and consider adding to HEP pending positive response. Physical Therapy Plan Frequency and Duration Frequency of 2x/Week Treatment Duration of 12 treatment (weeks) Plan of Care Start 03/02/25 Date Plan of Care End 05/31/25 Date Next Visit Focus/Plan Next Note Type Treatment Note Next Visit Plan Continue with plan of care with focus on proximal hamstring tendon re-loading. Current HEP: Supine bridges Hip hinge hip extension Standing band knee flexion Standing hip hinge
--- NOTE | 2025-03-19 10:58 | PT-OP ANOTE ---
Pt cancelled same day appt, not feeling well unable to attend.
--- NOTE | 2025-03-23 11:47 | PT.OTN ---
Current Diagnoses Other bursitis of hip, left hip (03/23/25) Physical Therapy Treatment Note PT OP: Lower Back/Lower Extremity Start: 03/02/25 09:39 Freq: Status: Active Protocol: Document 03/23/25 10:54 DAVID (Rec: 03/23/25 11:46 DAVID [id number]) Out-Patient Physical Therapy Visit Information Visit Information Visit Type Treatment Note Visit Start Time 10:52 Visit Stop Time 11:30 Visit Number 5 Number of CASKET UPHOLSTERER Visits 0 Progress Note Due 04/01/25 OP-PT Subjective Patient Comments Patient Comments Patient reports he shoulder has been bothering her with some of her PT exercises that require her to hold on to something. She reports her back and hip have been feeling good. Therapeutic Exercises Supine Exercises Leg press Resistance 50# Equipment Used wedge on sled fwd approx 6-8 Reps/Minutes 3x10 Hip bridge Reps/Minutes x10 bilateral, 2x10 unilateral L Comments Feet distal for hamstring bias Sitting Exercises Seated hip hinge Sitting Exercise Weight held close to torso to offload shoulder Name Resistance 10# Reps/Minutes 3x10 Comments Feet away from chair Hamstring curl machine Resistance 20# Reps/Minutes 3x10 Standing Exercises SLDL Standing Exercise Single leg deadlift, contralateral kickstand (B-stance) Name Equipment Used L UE support Reps/Minutes 2x10 Sit to stand Equipment Used mesh chair Reps/Minutes 2x10 Comments Cues for hip-dominant pattern Standing hip hinge Resistance 10#, tap to first 6 step Reps/Minutes 3x10 Comments Cues for posterior hip translation Physical Therapy Assessment Goals Three Impairment Sitting tolerance Short Term Goal (STG Patient will report sitting for >90 minutes with no ) more than a 1 point increase in pain levels. STG Duration 4 weeks Hat Presser Goal (LTG) Patient will report sitting for >120 minutes with no more than a 1 point increase in pain levels. LTG Duration 8 weeks Two Impairment General LE function Short Term Goal (STG Patient will demonstrate an increase in LEFS score to a ) 53 in order to show an increase in self-perceived function. STG Duration 4 weeks M[facility] Goal (LTG) Patient will demonstrate an increase in LEFS score to a 61 in order to show an increase in self-perceived function. LTG Duration 8 weeks One Impairment Pain intensity Short Term Goal (STG Patient will report a reduction in pain at worst of a 4 ) /10 in order to better tolerate siting for extended periods. STG Duration 4 weeks Hat Presser Goal (LTG) Patient will report a reduction in pain at worst of a 2 /10 in order to better tolerate siting for extended periods. LTG Duration 8 weeks Assessment Summary Assessment Treatment focused on continued hamstring strengthening. Patient tolerated treatment well with no lasting increases in pain levels. Exercises were modified today to offload shoulders after pain after last session. Plan next session to continued with exercises and monitor shoulder pain with exercises. Physical Therapy Plan Frequency and Duration Frequency of 2x/Week Treatment Duration of 12 treatment (weeks) Plan of Care Start 03/02/25 Date Plan of Care End 05/31/25 Date Next Visit Focus/Plan Next Note Type Treatment Note Next Visit Plan Continue with plan of care with focus on proximal hamstring tendon re-loading. Current HEP: Supine bridges Hip hinge hip extension Standing band knee flexion Standing hip hinge
--- NOTE | 2025-03-25 11:30 | PT.OTN ---
Current Diagnoses Other bursitis of hip, left hip (03/25/25) Physical Therapy Treatment Note PT OP: Lower Back/Lower Extremity Start: 03/02/25 09:39 Freq: Status: Active Protocol: Document 03/25/25 10:50 SP (Rec: 03/25/25 11:37 SP [id number]) Out-Patient Physical Therapy Visit Information Visit Information Visit Type Treatment Note Visit Start Time 10:50 Visit Stop Time 11:30 Visit Number 6 Number of MEDIA PRODUCTION OPERATOR Visits 1 Progress Note Due 04/01/25 OP-PT Subjective Patient Comments Patient Comments Pt reports was SOB last tx and looked at her medication (Carvedilo and another) after PT tx and noticed is an adverse affect of medication. She does at times get SOB walking the dog. Therapeutic Exercises Supine Exercises Leg press Supine Exercise Name cued feet& knee alignment Resistance 50# Equipment Used wedge on sled fwd approx 6-8 Reps/Minutes 3x10 Hip bridge Supine Exercise Name DL & SL Side bilateral Resistance AROM Reps/Minutes x10 bilateral, 2x10 unilateral L Comments Feet distal for hamstring bias, cues breath during and between sets Sitting Exercises Seated hip hinge Sitting Exercise Elbows tucked close torso to offload R shoulder Name Resistance 10# Reps/Minutes 3x10 Comments Scoot front chair, WBOS, Feet away from chair, hp hinge straight back Standing Exercises BOSU Step Up Standing Exercise trialed in PT Name Side bilateral Resistance AROM Equipment Used B rail support Reps/Minutes 10 Comments cued anterior hip translation into full stand pelvis over LE Lateral Step Downs Standing Exercise trialed in PT- add to HEP use garage step and doorframe Name support Side bilateral Resistance AROM Equipment Used 4 step, 6 step, 1 rail support Reps/Minutes 10 reps each side Comments cued full extension knee and hip, pelvis over LE SLDL Standing Exercise Single leg deadlift, contralateral kickstand (B-stance) Name Equipment Used near rail PRN if needed Reps/Minutes 2x10 Comments slight split stance, hip hinge reach toward contralateral anterior ankle Standing hip hinge Resistance 10#> 7 # DB, tap to 8 step Reps/Minutes 10# x6 before R anterior hip discomfort stopped, 7# DB x10 Comments Cues for posterior hip translation, glut engagment hip extension engagement Physical Therapy Assessment Goals Three Impairment Sitting tolerance Short Term Goal (STG Patient will report sitting for >90 minutes with no ) more than a 1 point increase in pain levels. 03/25/25: She states if soft does ok for as long as can . If firms surface STG Duration 4 weeks Group Home Goal (LTG) Patient will report sitting for >120 minutes with no more than a 1 point increase in pain levels. LTG Duration 8 weeks Two Impairment General LE function Short Term Goal (STG Patient will demonstrate an increase in LEFS score to a ) 53 in order to show an increase in self-perceived function. STG Duration 4 weeks Load Dispatcher Local Goal (LTG) Patient will demonstrate an increase in LEFS score to a 61 in order to show an increase in self-perceived function. LTG Duration 8 weeks One Impairment Pain intensity Short Term Goal (STG Patient will report a reduction in pain at worst of a 4 ) /10 in order to better tolerate siting for extended periods. STG Duration 4 weeks Load Dispatcher Local Goal (LTG) Patient will report a reduction in pain at worst of a 2 /10 in order to better tolerate siting for extended periods. LTG Duration 8 weeks Assessment Summary Assessment Pt good feedback response to L HS loading activities today, cues for hip hinge proper form and elbows tucked into side to off load and decreased R shld discomfort success. Cued throughout tx for L hip anterior translation into full stand postioning for strength proximal HS, glut for increased SLS time during gait. Continue monitor R shoulder pain with exercises. Physical Therapy Plan Frequency and Duration Frequency of 2x/Week Treatment Duration of 12 treatment (weeks) Plan of Care Start 03/02/25 Date Plan of Care End 05/31/25 Date Therapeutic Interventions Therapeutic Aquatic Therapy,Balance Training,Coordination Training, Interventions Gait Training,Home Exercise Program,Joint Mobilizations ,Manual Therapy,Neuromuscular Re-education,Patient/ Caregiver Education,Self-Care/Home Management,Soft Tissue Mobilization,Taping,Therapeutic Activities, Therapeutic Exercises Modalities Biofeedback,Cold Pack/Ice Massage,Electric Stimulation, Hot Packs,Infrared Therapy,Iontophoresis,Ultrasound, Vasopneumatic Devices Next Visit Focus/Plan Next Note Type Treatment Note Next Visit Plan Recheck added lateral step downs added last tx (declned HO). Continue with plan of care with focus on proximal hamstring tendon re-loading. Current HEP: Supine bridges Hip hinge hip extension Standing band knee flexion Standing hip hinge Lateral step down
--- NOTE | 2025-03-31 12:16 | PT.OTN ---
Current Diagnoses Other bursitis of hip, left hip (03/31/25) Physical Therapy Treatment Note PT OP: Lower Back/Lower Extremity Start: 03/02/25 09:39 Freq: Status: Active Protocol: Document 03/31/25 11:31 SP (Rec: 03/31/25 12:09 SP [id number]) Out-Patient Physical Therapy Visit Information Visit Information Visit Type Treatment Note Visit Start Time 11:31 Visit Stop Time 12:16 Visit Number 7 Number of WEAVING SUPERVISOR Visits 2 Progress Note Due 04/01/25 OP-PT Subjective Patient Comments Patient Comments Pt reports still gets SOB but stops and catches breath. Is compliant with HEP. Is nervous about stairs at friend's house due to multiple stairs with no HRs. Therapeutic Exercises Supine Exercises Leg press Supine Exercise Name DL & SL Side bilateral Resistance DL: 50# with yellow ball between knees SL: 37# cued knee alignment Equipment Used wedge on sled fwd approx 6-8 Reps/Minutes DL: 3x15, SL: 25 # R, 37# R x10 reps each Comments cued feet& knee alignment, not lock R knee extension Hip bridge Supine Exercise Name DL & SL Side bilateral Resistance AROM Reps/Minutes x10 bilateral, 2x10 unilateral L Comments Feet distal for hamstring bias, cues breath during and between sets Standing Exercises stair mgt LE strengthening Standing Exercise receiprocal stepping Name Resistance PRN rail ascending, slight glide descending Reps/Minutes front stairs 28 steps Comments cued more upright posture and glut drive and TKE ascending. Triple Extension Standing Exercise added to HEP with HO Name Side bilateral Resistance AROM Equipment Used incline plank on wall, SL Heel raise Reps/Minutes 2x10 Lateral Step Downs Standing Exercise reviewed in PT: add to home with garage step and Name doorframe support Side bilateral Resistance AROM Equipment Used 6 step door frame & 4 step open area to give confidence no UE support Reps/Minutes 10 reps each side Comments good form- added to HEP with HO SLDL Standing Exercise Single leg deadlift, contralateral kickstand (B-stance) Name Side bilateral Resistance AROM Equipment Used near rail PRN if needed Reps/Minutes 15 reps each side Comments slight split stance, hip hinge fwd reach contralateral anterior ankle Sit to stand Resistance arms across chest Equipment Used large chair Reps/Minutes 2x10 Comments Cues for hip hinge full stand and controlled sit equal WB distribution Standing hip hinge Resistance 7 # DB tap to 6 step Reps/Minutes 10 reps Comments Cues for posterior hip translation, equal wt BLEs, Tends to lean L Physical Therapy Assessment Goals Three Impairment Sitting tolerance Short Term Goal (STG Patient will report sitting for >90 minutes with no ) more than a 1 point increase in pain levels. 03/25/25: She states if soft does ok for as long as can . If firms surface STG Duration 4 weeks Assisted Goal (LTG) Patient will report sitting for >120 minutes with no more than a 1 point increase in pain levels. LTG Duration 8 weeks Two Impairment General LE function Short Term Goal (STG Patient will demonstrate an increase in LEFS score to a ) 53 in order to show an increase in self-perceived function. STG Duration 4 weeks Assisted Goal (LTG) Patient will demonstrate an increase in LEFS score to a 61 in order to show an increase in self-perceived function. LTG Duration 8 weeks One Impairment Pain intensity Short Term Goal (STG Patient will report a reduction in pain at worst of a 4 ) /10 in order to better tolerate siting for extended periods. STG Duration 4 weeks Lang Interpreter Goal (LTG) Patient will report a reduction in pain at worst of a 2 /10 in order to better tolerate siting for extended periods. LTG Duration 8 weeks Assessment Summary Assessment Pt improved glut, quad and HS loading activities in standing today, cues for back alignment during hip hinge and not locking knees, and upright posture during stepping to allow hip stance time stability. Performed receiprocal stepping stair case this tx for LE strength and confidence enter/exit friend's home. FOrgot to give her the copy of lateral step down and triple ext there x added to HEp today. WIll give to PT to provided pt 04/02 appt. Physical Therapy Plan Frequency and Duration Frequency of 2x/Week Treatment Duration of 12 treatment (weeks) Plan of Care Start 03/02/25 Date Plan of Care End 05/31/25 Date Therapeutic Interventions Therapeutic Aquatic Therapy,Balance Training,Coordination Training, Interventions Gait Training,Home Exercise Program,Joint Mobilizations ,Manual Therapy,Neuromuscular Re-education,Patient/ Caregiver Education,Self-Care/Home Management,Soft Tissue Mobilization,Taping,Therapeutic Activities, Therapeutic Exercises Modalities Biofeedback,Cold Pack/Ice Massage,Electric Stimulation, Hot Packs,Infrared Therapy,Iontophoresis,Ultrasound, Vasopneumatic Devices Next Visit Focus/Plan Next Note Type Progress Note Next Visit Plan Next tx PN /. Continue with plan of care with focus on proximal hamstring tendon re-loading. Current HEP: Supine bridges Hip hinge hip extension Standing band knee flexion Standing hip hinge Lateral step down in garage door
--- NOTE | 2025-04-02 11:28 | PT.OPDS ---
Current Diagnoses Other bursitis of hip, left hip (04/02/25) Visit Care Team Role Provider Type Eryn Molina MD Primary Care Provider Physician Specialty: Internal Medicine Address: [address] [place] [address], [address], [place], [address] Email: George Sánchez DO Attending Provider Physician Referring Provider Specialty: Interventional Radiology Physiatry Pain Management Address: [address] [place] [address], [address] Phone: Fax: Email: [email or web address] Visit Number Visit Number 8 Discharge Summary PT OP: Lower Back/Lower Extremity Start: 03/02/25 09:39 Freq: Status: Active Protocol: Document 04/02/25 10:36 DAVID (Rec: 04/02/25 11:27 DAVID [id number]) Out-Patient Physical Therapy Visit Information Visit Information Visit Type Discharge Summary Visit Start Time 10:45 Visit Stop Time 11:25 Visit Number 8 Number of CAD SPECIALIST Visits 0 Progress Note Due 05/02/25 OP-PT Subjective Patient Comments Patient Comments Patient reports she still has some pain in her hip when she sits for extended periods. She reports her GROC is 5%. She notes she has found some benefit from PT with her R hip strength. She does not that she has not been on a long ride recently to test how her hip would do. Therapeutic Exercises Supine Exercises Hip bridge Supine Exercise Name DL & SL Reps/Minutes x10 bilateral, 2x10 unilateral L Comments Feet distal for hamstring bias Sitting Exercises Hamstring curl machine Resistance 20# Reps/Minutes 3x10 Standing Exercises Lateral Step Downs Equipment Used 6 step Reps/Minutes 2x10 each side SLDL Standing Exercise Single leg deadlift, contralateral kickstand (B-stance) Name Reps/Minutes 2x10 each side Sit to stand Resistance arms across chest Equipment Used large chair Reps/Minutes 2x10 Comments Cues for hip hinge full stand and controlled sit equal WB distribution Physical Therapy Assessment Goals Three Impairment Sitting tolerance Short Term Goal (STG Patient will report sitting for >90 minutes with no ) more than a 1 point increase in pain levels. 03/25/25: She states if soft does ok for as long as can . If firms surface 04/02/2025: Patient reports she was able to sit for up to 60 minutes but not much more time without a significant increase in pain levels. STG Duration 4 weeks Jail Goal (LTG) Patient will report sitting for >120 minutes with no more than a 1 point increase in pain levels. 04/02/2025: Patient reports she was able to sit for up to 60 minutes but not much more time without a significant increase in pain levels. LTG Duration 8 weeks Two Impairment General LE function Short Term Goal (STG Patient will demonstrate an increase in LEFS score to a ) 53 in order to show an increase in self-perceived function. Met - 04/02/2025 (60) STG Duration 4 weeks Jail Goal (LTG) Patient will demonstrate an increase in LEFS score to a 61 in order to show an increase in self-perceived function. In progress - 04/02/2025 (60) LTG Duration 8 weeks One Impairment Pain intensity Short Term Goal (STG Patient will report a reduction in pain at worst of a 4 ) /10 in order to better tolerate siting for extended periods. 04/02/2025: In progress (up to a 5/10 at worst) STG Duration 4 weeks Jail Goal (LTG) Patient will report a reduction in pain at worst of a 2 /10 in order to better tolerate siting for extended periods. 04/02/2025: In progress (up to a 5/10 at worst) LTG Duration 8 weeks Assessment Summary Assessment Patient presenting to PT after 7 visits for L hip pain. Patient has reported minimal improvement with symptoms thus far. Further investigation revealed some improvement with function (see measures: GROC, LEFS) but no change in tolerance to sitting for extended periods (see goal section). Because of lack of progress towards goals, and patient desire to move to independent management, today will be her last formal PT session. Physical Therapy Plan Frequency and Duration Frequency of 2x/Week Treatment Duration of 12 treatment (weeks) Plan of Care Start 03/02/25 Date Plan of Care End 05/31/25 Date Next Visit Focus/Plan Next Visit Plan N/A - patient to be discharged
== END 2025-04-06 12:52 | disposition home or self-care (01) ==
LOC: PHYS 10:45
PROVIDERS: PCP Internal Medicine; Referring Provider Physical Medicine & Rehabilitation; Visit Provider Physical Medicine & Rehabilitation
DX: M70.72 Other bursitis of hip, left hip (principal)
CPT/HCPCS: 97110; 97161